=== PATIENT | female | born 2000 | race Caucasian/White ===

== ENCOUNTER 2019-07-04 07:09 | Inpatient (IN) | payer OTHER, SELFPAY ==
[2019-07-04 07:32] VITALS: BMI 29.6
--- NOTE | 2019-07-04 07:46 | PCM.HP.OB ---
- Problem List (1) 40 weeks gestation of Status: Acute (2) Primiparous Status: Acute History Date of Admission: 07/04/19 Final ROLDAN: 06/29/19 Gestational age: 40 Weeks and 5 Days History of this : This is a 18 year-old, G 1, P 0, at 40 weeks gestational age who presents for scheduled IOL. Medical History: Medical History (Last Updated 07/04/19 @ 07:47 by Nisreen Cardozo DO) History of depression Z86.59 History of herpes genitalis Z86.19 Allergies Penicillins [PCN] Allergy (Verified 07/04/19 07:33) Unknown Home Medications: Home Medications Cetirizine HCl 1 tab PO DAILY 07/04/19 Fluconazole 1 tab 07/04/19 Montelukast [Singulair] 10 mg PO DAILY 07/04/19 Vits [Prenatabs FA ] 1 tab PO DAILY 07/04/19 Valacyclovir HCl [Valacyclovir] 1 tab PO DAILY 07/04/19 History Past Pregnancies: Past Pregnancies Delivery Date Name GA/ Weeks Outcome Route Wt Infant Sex Labor Length Anesthesia Delivery Location Provider FOB Labs: GBS neg Hgb 11.5 Hgb a1c 4.7 UDS neg Rh positive Antibody screen neg Hep B neg RPR NR RI HIV NR GC/CT neg Expected Delivery Method: Spontaneous Vaginal Review of Systems Gynecological: Reports: - - No regular ctx, vb, lof. +FM Physical Exam General: Alert, No apparent distress HEENT: Atraumatic Lungs: Normal air movement Abdomen: Soft, Non Tender, Gravid Extremities:: No edema Neurological: Neuro grossly intact [place] [facility] END: Normal external genitalia Estimated gestational size: Appropriate for gestational size Presentation: Cephalic Assessment/Plan All Active Problems 40 weeks gestation of (Acute) Primiparous (Acute) This is a 18 year-old, G 1, P 0, at 40 weeks gestational age. - Admit for scheduled IOL. Routine intrapartum care - Pitocin per protocol - Epidural prn - GBS neg - Pelvis adequate and anticipate vaginal delivery - No symptoms of a herpes outbreak and no lesions
[2019-07-04] MEDS: Lactated Ringers 1,000 ML 50 ML IV (08:00)
[2019-07-04 08:17] LABS: Absolute Lymphocyte Count 2.82 X10^3/uL (0.83-4.51); Absolute Neutrophil Count 7.3 X10^3/uL (2.0-7.7); Basophil# 0.05 X10^3/uL; Basophil% 0.4 % (0-1); Eosinophil# 0.07 X10^3/uL; Eosinophils% 0.6 % (0-5); Hematocrit 35.6 % (37-47); Hemoglobin 11.9 g/dL (12.0-15.0); Lymphocyte # 2.82 X10^3/ul (4.0); Mean Corp Hgb Conc 33.4 g/dL (32-36); Mean Corpuscular Hgb 31.1 pg (27.0-32.0); Mean Platelet Vol. 10.4 fl (6.2-12.0); Monocyte# 0.96 X10^3/uL; Monocyte% 8.5 % (0-10); NRBC Flagged by Analyzer 0 % (0-5); Neutrophil # 7.32 X10^3/uL (2.7-7.7); Neutrophil % 65.1 % (47-70); Platelet Count 263 K/mm3 (150-450); RBC Distribution Width CV 13.9 % (11.6-14.6); RBC Distribution Width SD 47.3 fl (35.1-43.9); Red Blood Count 3.83 M/mm3 (4.2-5.4); White Blood Count 11.3 K/mm3 (4.4-11.0)
[2019-07-04] MEDS: Oxytocin 30 units/NS 500 ml 30 UNITS/500 ML IV.SOLN IV (08:42)
[2019-07-04] MEDS: Lactated Ringers 500 ML 999 ML IV ×2 (11:45→13:30)
[2019-07-04] MEDS: fentaNYL-bupivacaine (epidural) 100 ML BAG EPIDURAL ×2 (12:30→17:15)
--- NOTE | 2019-07-04 13:31 | EKG12_ITS ---
Test Reason : CP Blood Pressure : / mmHG Vent. Rate : 086 BPM Atrial Rate : 086 BPM P-R Int : 116 ms QRS Dur : 102 ms QT Int : 384 ms P-R-T Axes : 027 040 009 degrees QTc Int : 459 ms Normal sinus rhythm Normal ECG No previous ECGs available Confirmed by NORI PETERSON, WILLIAM ([id number]), editorial specialist LASHAUN EVANS ([id number] on 07/11/2019 10:36:33 AM Referred By: Chayito Blanchard Confirmed By:IGNACIO JULIO MD
--- NOTE | 2019-07-04 13:32 | PCM.PN.BLA ---
Progress Note Cvx 4/70/-1, head well applied. AROM for meconium stained fluid. Pt with epigastric pain, SOB, nausea, vomiting, and generally not feeling well. She appears pale. S/p epidural 1 hour ago approximately. Will get CBC w/ diff, CMP, EKG. Anesthesia ordered a fluid bolus and is coming to evaluate pt.
[2019-07-04 14:00] LABS: Absolute Lymphocyte Count 1.96 X10^3/uL (0.83-4.51); Absolute Neutrophil Count 7.8 X10^3/uL (2.0-7.7); Basophil# 0.03 X10^3/uL; Basophil% 0.3 % (0-1); Eosinophil# 0.01 X10^3/uL; Eosinophils% 0.1 % (0-5); Hematocrit 39.1 % (37-47); Hemoglobin 13.1 g/dL (12.0-15.0); Lymphocyte # 1.96 X10^3/ul (4.0); Lymphocyte % 18.9 % (19-41); Mean Corp Hgb Conc 33.5 g/dL (32-36); Mean Corpuscular Hgb 31.4 pg (27.0-32.0); Mean Corpuscular Volume 93.8 fL (81-99); Mean Platelet Vol. 10.5 fl (6.2-12.0); Monocyte# 0.54 X10^3/uL; Monocyte% 5.2 % (0-10); NRBC Flagged by Analyzer 0 % (0-5); Neutrophil # 7.76 X10^3/uL (2.7-7.7); Platelet Count 250 K/mm3 (150-450); RBC Distribution Width SD 48.5 fl (35.1-43.9); Red Blood Count 4.17 M/mm3 (4.2-5.4); White Blood Count 10.4 K/mm3 (4.4-11.0)
[2019-07-04 14:41] LABS: ALB/GLOB Ratio 0.8 RATIO (0.9-2.4); AST(SGOT) 20 U/L (15-37); Alanine Aminotransfer ALT/SGPT 18 U/L (13-56); Albumin, Serum 3.2 g/dL (3.2-5.0); Alkaline Phosphatase 186 U/L (45-117); Anion Gap 8 (5-15); BUN 6 mg/dL (7-18); BUN/Creat Ratio 10.9 RATIO (10-20); Calcium,Total 9.1 mg/dL (8.5-10.1); Chloride 110 mmol/L (98-107); Creatinine, Serum 0.55 mg/dL (0.55-1.02); EST Glomerular Filtration Rate 148 mL/min (>60); Est Glom Filt Rate - Afr Amer 179 mL/min (>60); Estimated Creatinine Clearance 134.97 ml/min; Globulin 4.2 g/dL (2.2-4.2); Glucose 85 mg/dL (74-106); Potassium 3.7 mmol/L (3.5-5.1); Protein, Total 7.4 g/dL (6.4-8.2); Sodium Level 139 mmol/L (136-145)
[2019-07-04] MEDS: Amnioinfusion- 0.9% NS 1,000 ML IV.SOLN. 300 ML INTRA-UTER (15:23)
[2019-07-04] MEDS: Oxytocin 30 units/NS 500 ml 30 UNITS/500 ML IV.SOLN 334 UNITS IV (17:43)
--- NOTE | 2019-07-04 18:05 | PCM.OPRPT ---
Problem List (1) 40 weeks gestation of Status: Acute (2) Primiparous Status: Acute Report of Operation Date of Procedure: 07/04/19 Pre-Operative Diagnosis: 40 week gestation, primiparous patient, favorable cervix Post-Operative Diagnosis: As above Surgery/Procedure Performed:: Description of Surgical Findings:: Viable female infant in vertex presentation. Meconium stained fluid. True know x 1 in cord and nuchal x 2 around neck. Intact normal appearing placenta. Type of Anesthesia:: Epidural Special Medications: None Specimen's removed: Placenta Drains: Duran Estimated Blood Loss (mL): 300 Description of Procedure: Patient was complete and pushing with variable decelerations with pushing. A small midline episiotomy was created. Head was delivered noting a nuchal cord x 2 that was loose and easily reduced. The anterior shoulder, posterior shoulder, followed by body were delivered without force or delay. Viable female was delivered atraumatically and was placed on maternal abdomen. Cord was clamped and cut after 60 sec delay by father of the baby. Apgars were 8 and 9. Placenta was delivered with fundal massage. Placenta was noted to be normal-appearing and intact with a three-vessel cord. Uterus was explored x 1. A second-degree perineal laceration was repaired in usual sterile fashion. Fundus was firm and bleeding was hemostatic. - Complications None Vaginal Delivery Maternal Presentation: Elective Induction Method of Induction: Pitocin Amniotic Membrane Rupture Type: Artificial Amniotic Fluid Description: Lightly stained meconium Final ROLDAN: 06/29/19 Gestational age: 40 Weeks and 5 Days Date of Procedure: 07/04/19 Surgery/ Procedure Performed: Spontaneous Vaginal Delivery Type of Anesthesia: Epidural Presentation: Vertex Placental Delivery Description: Expressed Cord Vessel Description: 3 Vessels Nuchal Cord Compression: Without compression Cord Entanglement: Around neck x 2, loose, True Knot(s) - 1 Infant A gender: Female (1 minute): 8 (5 minute): 9 Episiotomy Description: Midline Laceration: 2nd degree Medications given after delivery: IV Pitocin Complications: None
[2019-07-04] MEDS: Ibuprofen 600 MG Tablet PO (22:59)
[2019-07-04 23:07] VITALS: BP 107/73; PULSE 108; RESP 16; TEMP 36.6; O2SAT 98
[2019-07-05] MEDS: Acetaminophen 500 MG Tablet 1000 MG PO ×2 (01:33→09:34)
[2019-07-05 03:55] VITALS: BP 111/72; PULSE 94; RESP 14; TEMP 36.5
[2019-07-05] MEDS: Ibuprofen 600 MG Tablet PO (06:24)
[2019-07-05 08:15] VITALS: BP 111/61; PULSE 100; RESP 12; TEMP 36.6
[2019-07-05] MEDS: Senna/Docusate Sodium 1 Tablet PO (09:34)
--- NOTE | 2019-07-05 10:21 | PCM.PN.OB ---
Patient Problems: Active and Suspected Problems (Last Updated 07/04/19 @ 07:47 by Nisreen Cardozo DO) 40 weeks gestation of (Acute) Primiparous (Acute) Subjective: Patient doing well. Ambulating and voiding without difficulty. Pain is well controlled. Tolerating regular diet without nausea or vomiting. She denies lightheadedness, dizziness, chest pain, shortness of breath, leg pain. She is bottlefeeding. - Physical Exam Vitals/I&O's: Vital Signs Temp Pulse Resp BP Pulse Ox 97.7 F L 94 14 111/72 98 07/05/19 03:55 07/05/19 03:55 07/05/19 03:55 07/05/19 03:55 07/04/19 23:07 Oxygen Delivery Method Room Air Weight: 167 lb 4 oz Body Mass Index (BMI) 29.6 Intake and Output for Last 24 Hours 07/03/19 07/04/19 07/05/19 23:59 23:59 23:59 Intake Total 3306.43 / 3306.43 Output Total 1200 / 1200 800 / 800 Balance 2106.43 / 2106.43 -800 / -800 General: Alert, No apparent distress HEENT: Atraumatic Lungs: Normal air movement Abdomen: Soft, Non Tender, Non-Distended, - - FF@U-2 Extremities: No edema, No Calf Tenderness Skin: No rashes Neurological: Neuro grossly intact Psych/Mental Status: Normal Affect, Appropriate Laboratory Results 07/04/19 13:50: WBC 10.4, RBC 4.17 L, Hgb 13.1, Hct 39.1, MCV 93.8, MCH 31.4, MCHC 33.5, RDW Std Deviation 48.5 H, RDW Coeff of Ajay 14.0, Plt Count 250, MPV 10.5, Immature Gran % (Auto) 0.500, Neut % (Auto) 75.0 H, Lymph % (Auto) 18.9 L, [place] % (Auto) 5.2, Eos % (Auto) 0.1, Baso % (Auto) 0.3, Absolute Neuts (auto) 7.8 H, Absolute Lymphs (auto) 1.96, Nucleated RBC % 0 07/04/19 13:50: Sodium 139, Potassium 3.7, Chloride 110 H, Carbon Dioxide 21.0, Anion Gap 8, BUN 6 L, Creatinine 0.55, Estim Creat Clear Calc 134.97, Est GFR (MDRD) Af Amer 179, Est GFR (MDRD) Non-Af 148, BUN/Creatinine Ratio 10.9, Glucose 85, Calcium 9.1, Total Bilirubin 0.30, AST 20, ALT 18, Alkaline Phosphatase 186 H, Total Protein 7.4, Albumin 3.2, Globulin 4.2, Albumin/Globulin Ratio 0.8 L Current Medications Acetaminophen (Tylenol) 1,000 mg PO Q8H PRN PRN PRN Reason: Pain Score 1-3/10 Last Admin: 07/05/19 09:34 Dose: 1,000 mg Documented by: Bisacodyl (Dulcolax) 10 mg RECTAL UD PRN PRN Reason: If no BM Dibucaine (Dibucaine) 1 applic TOPICAL TID PRN PRN; Protocol PRN Reason: Discomfort Hydrocortisone (Hytone) 1 applic TOPICAL TID PRN PRN; Protocol PRN Reason: Discomfort Ibuprofen (Motrin) 600 mg PO Q6H PRN PRN PRN Reason: Pain Score 1-3/10 Last Admin: 07/05/19 06:24 Dose: 600 mg Documented by: Methylergonovine Maleate (Methergine) 0.2 mg IM X1 PRN PRN Reason: Excess bleeding/uterine atony Ondansetron HCl (Zofran) 4 mg IV Q4H PRN PRN PRN Reason: Nausea Senna/Docusate Sodium (Senokot-S, Genna-Colace) 1 - 2 tablet PO DAILY PRN PRN PRN Reason: Constipation Last Admin: 07/05/19 09:34 Dose: 2 tablet Documented by: Simethicone (Mylicon) 80 mg PO PCHS PRN PRN Reason: Indigestion/Stomach pain Sodium Chloride () 5 - 15 ml IV UD PRN PRN Reason: SALINE FLUSH Medical Necessity - Tobacco Use Smoking Status: Former smoker Assessment/Plan All Active Problems (Last Updated 07/04/19 @ 07:47 by Nisreen Cardozo DO) 40 weeks gestation of (Acute) Primiparous (Acute) PPD#1 s/p - Doing well - Bottle feeding - Dispo: Pt requests to go home today. Understands that she has to stay 24 hrs after delivery at least for monitoring. Discharge instructions and follow up reviewed
--- NOTE | 2019-07-05 10:24 | DCINST_ITS ---
Discharge Diet: No Restrictions Discharge Activity: Return to Normal Activity May resume sexual activity in: 6 weeks Ice area for (Minutes): 15 Weight Bearing Status: Full weight bearing Lifting Restrictions: None Call your doctor if your incision/area has: Sudden Increased Bleeding, Increased Pain/ Swelling, Increased Redness, Foul Smelling Discharge, Swelling at the incision site Call your doctor if you observe: Fever of 101 or Higher, Inability to urinate, Inability to have a bowel movement, Using more than one pad per hour, Shortness of breath, Dizziness, Chest pain, Increased palpitations (irregular heartbeat), Calf discomfort, Uncontrolled pain Cleanse incision/area with: Soap & Water Additional Instructions: If you experience any of the following, contact your healthcare provider. * Bleeding that soaks a pad every hour for 2 hours * Fever 100.4 or higher * Unrelieved incision or abdominal pain * Swelling, redness, discharge or bleeding from your incision or episiotomy site * Your incision begins to separate * Problems urinating (including inability to urinate or burning while urinating). * Visual changes * Severe headache * Flu-like symptoms * Pain or redness in one of both of your breasts * Pain, warmth, tenderness or swelling in your legs, especially the calf area * Frequent nausea and vomiting * Symptoms of depression or anxiety If you experience any of the following, call 911 or go to the nearest Emergency Room. * Chest pain * Problems breathing * Seizure activity * Partial or complete paralysis of a body part, slurred speech, weakness or drooping of the face, or a sudden inability to walk or hold your balance Allergies/Adverse Reactions: Allergies Penicillins [PCN] Allergy (Verified 07/04/19 07:33) Unknown Medications to take at Discharge Cetirizine HCl 1 tab PO DAILY 07/04/19 Fluconazole 1 tab 07/04/19 Montelukast [Singulair] 10 mg PO DAILY 07/04/19 Vits [Prenatabs FA ] 1 tab PO DAILY 07/04/19 Valacyclovir HCl [Valacyclovir] 1 tab PO DAILY 07/04/19 Please Follow Up With: Nisreen Cardozo DO When: 2 weeks and 6 weeks Primary Care Physician: Luann Dunn MD [Primary Care Provider] - Test Results: Test results from this visit will be discussed in further detail at your follow- up appointment, if applicable.
[2019-07-05 14:00] VITALS: BP 102/60; PULSE 90; RESP 12; TEMP 36.6
[2019-07-05 18:00] VITALS: PULSE 82; RESP 16; TEMP 36.8
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
[2019-07-05 19:33] VITALS: BP 137/61; PULSE 102; RESP 18; TEMP 36.5
== END 2019-07-05 19:45 | disposition home or self-care (01) | DRG 807 ==
PROVIDERS: Obstetrics & Gynecology; Admitting Provider Obstetrics & Gynecology; Family Provider Family Medicine; PCP Family Medicine; Referring Provider Obstetrics & Gynecology; Visit Provider Obstetrics & Gynecology
DX: O48.0 Post-term pregnancy (principal); Z37.0 Single live birth; Z3A.40 40 weeks gestation of pregnancy; O77.0 Labor and delivery complicated by meconium in amniotic fluid; O69.81X0 Labor and delivery complicated by cord around neck, without compression, not applicable or unspecified; O69.2XX0 Labor and delivery complicated by other cord entanglement, with compression, not applicable or unspecified; O76 Abnormality in fetal heart rate and rhythm complicating labor and delivery; O70.1 Second degree perineal laceration during delivery
CPT/HCPCS: 59025; 59050; 80053; 85025; 86850; 86900; 86901; 93005; 99218; J7030; J7120; G0378

== ENCOUNTER 2022-09-18 07:05 | Inpatient (IN) | payer SELFPAY ==
[2022-09-18] VITALS (60 sets, daily range): BP systolic 98–135; BP diastolic 52–84; PULSE 75–139; TEMP 35.9–36.6; O2SAT 95–100; BMI 35.5
[2022-09-18] MEDS: Lactated Ringers 1,000 ML 50 ML IV (07:47)
[2022-09-18 08:04] LABS: Absolute Lymphocyte Count 3.01 X10^3/uL (0.83-4.51); Absolute Neutrophil Count 7.1 X10^3/uL (2.0-7.7); Basophil# 0.04 X10^3/uL; Basophil% 0.4 % (0-1); Eosinophil# 0.07 X10^3/uL; Eosinophils% 0.6 % (0-5); Hematocrit 36.9 % (37-47); Hemoglobin 12.2 g/dL (12.0-15.0); Lymphocyte # 3.01 X10^3/ul (0.83-4.51); Lymphocyte % 27.5 % (19-41); Mean Corp Hgb Conc 33.1 g/dL (32-36); Mean Corpuscular Hgb 30.4 pg (27.0-32.0); Mean Platelet Vol. 10.2 fl (6.2-12.0); Monocyte# 0.64 X10^3/uL; Monocyte% 5.8 % (0-10); NRBC Flagged by Analyzer 0 % (0-5); Neutrophil # 7.11 X10^3/uL (2.7-7.7); Neutrophil % 64.9 % (47-70); Platelet Count 270 K/mm3 (150-450); RBC Distribution Width CV 14.5 % (11.6-14.6); RBC Distribution Width SD 48.5 fl (35.1-43.9); Red Blood Count 4.01 M/mm3 (4.2-5.4)
--- NOTE | 2022-09-18 08:36 | EKG12_ITS ---
Test Reason : tachycardia Blood Pressure : / mmHG Vent. Rate : 128 BPM Atrial Rate : 128 BPM P-R Int : 114 ms QRS Dur : 096 ms QT Int : 308 ms P-R-T Axes : 048 041 005 degrees QTc Int : 449 ms Sinus tachycardia When compared with ECG of 04-JUL-2019 14:11, Vent. rate has increased BY 42 BPM Confirmed by SHARON PETERSON, DERRELL ([id number]), editorial writer DAYSI INFANTE ([id number]) on 09/19/2022 8:08:24 AM Referred By: Pao Ahn Confirmed By:DERRELL HERRERA MD
[2022-09-18] MEDS: Oxytocin 15 Units/NS 250ml 15 UNITS/250 ML IV.SOLN 2 UNITS IV (08:47)
[2022-09-18 08:56] LABS: Syphilis Antibodies Non-reactive
[2022-09-18] MEDS: LACTATED RINGERS 500 ML 999 ML IV ×2 (08:56→11:28)
--- NOTE | 2022-09-18 08:56 | HP.PCM.OB_ITS ---
HPI - General General Date of Admission: 09/18/22 HPI Narrative BETY DOMINGUEZ, is a 22 F who presents at 39w2d with induction of labor. 2 vessel umbilical cord. [facility] Medical History (Updated 09/18/22 @ 18:02 by Pao Ahn CNM) Anxiety Former smoker History of depression History of herpes genitalis depression Home Medications cetirizine 10 mg tablet 1 tab PO PRN PRN allergies 07/04/19 [History Last Taken Unknown] montelukast 10 mg tablet 10 mg PO PRN PRN allergies 07/04/19 [History Last Taken Unknown] vits,calcium no.78-iron fumarate-folic acid 29 mg-1 mg tablet 1 tab PO DAILY 07/04/19 [History Last Taken 09/17/22] valacyclovir 1 gram tablet 1 tab PO DAILY hx genital herpes 07/04/19 [History Last Taken 09/18/22] magnesium citrate 100 mg capsule 400 mg PO PRN PRN Constipation 09/18/22 [History Last Taken 09/17/22] Allergy/AdvReac Type Severity Reaction Status Date / Time Penicillins [PCN] Allergy Unknown Verified 07/04/19 07:33 Social History Smoking Status: Former smoker History Elective abortions Hx Para 1 Spontaneous abortions Hx # Term Pregnancies Ectopic pregnancies Hx # Pregnancies Multiple births # of living children NST FHR Rate Baby A Baseline: 155 Variability:: Moderate Accelerations:: 15 x 15 Decelerations:: Variable FHR Category:: Category II Uterine Activity:: None ROS Constitutional Constitutional: Reports systems reviewed and no addt'l complaints, except as documented; Denies headache(s) Eyes Eyes: Denies acute decrease in peripheral vision, blurry vision or change in vision ENT HEENT: Reports systems reviewed and no addt'l complaints, except as documented Cardiovascular Cardiovascular: Denies chest pain or dizziness Respiratory/Chest Respiratory/Chest: Denies cough, dyspnea, dyspnea on exertion, shortness of breath at rest or shortness of breath with exertion Gastrointestinal Gastrointestinal: Denies abdominal pain, diarrhea, nausea or vomiting Genitourinary Genitourinary: Denies abdominal discomfort Musculoskeletal Musculoskeletal: Denies limited range of motion Integumentary Integumentary: Reports systems reviewed and no addt'l complaints, except as documented Neurologic Neurologic: Reports systems reviewed and no addt'l complaints, except as documented Psychiatric Psychiatric: Reports systems reviewed and no addt'l complaints, except as documented Endocrine Endocrinology: Reports systems reviewed and no addt'l complaints, except as documented Hematologic/Lymphatic Hematologic/Lymphatic: Reports systems reviewed and no addt'l complaints, except as documented Allergic/Immunologic Allergic/Immunologic: Reports systems reviewed and no addt'l complaints, except as documented Vital Signs Vital Signs Vital Signs: 09/18/22 07:56 09/18/22 07:56 09/18/22 07:57 Temperature 97.9 F Pulse Rate 135 H Blood Pressure 119/69 BP Systolic 119 BP Diastolic 69 Pulse Ox 09/18/22 07:57 09/18/22 08:06 09/18/22 08:06 Temperature Pulse Rate 133 H Blood Pressure BP Systolic BP Diastolic Pulse Ox 98 96 09/18/22 08:11 09/18/22 08:11 09/18/22 08:16 Temperature Pulse Rate 133 H 129 H Blood Pressure BP Systolic BP Diastolic Pulse Ox 96 09/18/22 08:16 09/18/22 08:21 09/18/22 08:21 Temperature Pulse Rate 127 H Blood Pressure BP Systolic BP Diastolic Pulse Ox 97 96 09/18/22 08:26 09/18/22 08:26 09/18/22 08:31 Temperature Pulse Rate 129 H 128 H Blood Pressure BP Systolic BP Diastolic Pulse Ox 97 09/18/22 08:31 09/18/22 08:30 09/18/22 08:36 Temperature 97.9 F Pulse Rate 135 H Blood Pressure BP Systolic BP Diastolic Pulse Ox 98 09/18/22 08:36 09/18/22 08:41 09/18/22 08:41 Temperature Pulse Rate 139 H Blood Pressure BP Systolic BP Diastolic Pulse Ox 97 99 09/18/22 08:46 09/18/22 08:46 09/18/22 08:51 Temperature Pulse Rate 136 H Blood Pressure BP Systolic BP Diastolic Pulse Ox 98 98 09/18/22 08:51 Temperature Pulse Rate 126 H Blood Pressure BP Systolic BP Diastolic Pulse Ox Weight Weight: 194 lb 3.2 oz Body Mass Index (BMI) 35.5 Physical Exam Const alert and oriented x3 General Appearance: cooperative Orientation / Consciousness: awake, oriented to person, oriented to place and oriented to time Exam Limitations: no limitations HEENT normocephalic Head and Scalp: normal to inspection, normocephalic and atraumatic Face and Sinus: normal facial exam Eyes General Eye: normal appearance of both eyes Neck full ROM Chest Chest: symmetrical chest wall rise Resp normal respiratory effort and normal air movement Auscultation: clear to auscultation bilaterally Cardio regular rate, regular rhythm, S1 normal heart sound, S2 normal heart sound, no murmurs, no rub, no gallops and no clicks GI normal to inspection, nondistended, normoactive bowel sounds and non-tender appearance of the vagina normal Bladder / Kidney Exam: no CVA tenderness Manual OB Exam: estimated gestational size appropriate, presentation cephalic, dilated 3, effaced 50 and station -2 Back/Spine normal ROM Extremity normal to inspection and full ROM Skin no rashes or lesions noted Neuro oriented x3, CN's II-XII intact bilaterally and moves all extremities Sensorium / Orientation: awake, alert and oriented to person Motor Exam: clonus absent Deep Tendon Reflexes: Rt Patellar (L4): 2+ and Lt Patellar (L4): 2+ Labs Labs Labs: Blood Type A POSITIVE Antibody Screen NEGATIVE Hct 36.9 % (37-47) L Hgb 12.2 g/dL (12.0-15.0) Syphilis Total Ab Non-reactive Rhogam given: No HBsAG negative Hep C negative GBS negative Did not complete 1hr GCT, 2 weeks of Blood sugar log normal Assessment & Plan (1) Elective induction of labor planned: (2) Two vessel umbilical cord: (3) 39 weeks gestation of : PLAN: Plan 1) Admit to labor and delivery 2) Pitocin for active management 3) Continuous monitoring 4) Epidural for pain management 5) GBS negative 6) collaborative physician and notified of patient status 7) HSV prophylaxis
[2022-09-18 09:24] LABS: ALB/GLOB Ratio 0.7 RATIO (0.9-2.4); AST(SGOT) 28 U/L (15-37); Alanine Aminotransfer ALT/SGPT 14 U/L (13-56); Albumin, Serum 2.7 g/dL (3.2-5.0); Alkaline Phosphatase 168 U/L (45-117); Anion Gap 13 (5-15); BUN 5 mg/dL (7-18); BUN/Creat Ratio 8.6 RATIO (10-20); Calcium,Total 8.9 mg/dL (8.5-10.1); Chloride 110 mmol/L (98-107); Creatinine, Serum 0.58 mg/dL (0.55-1.02); EST Glomerular Filtration Rate 135 mL/min (>60); Est Glom Filt Rate - Afr Amer 163 mL/min (>60); Estimated Creatinine Clearance 118.29 ml/min; Globulin 3.7 g/dL (2.2-4.2); Glucose 154 mg/dL (74-106); Potassium 3.8 mmol/L (3.5-5.1); Protein, Total 6.4 g/dL (6.4-8.2); Sodium Level 141 mmol/L (136-145)
--- NOTE | 2022-09-18 10:02 | ECHOD_ITS ---
Reason For Study: ANB EKG Procedure This was a 2D Doppler, Color Flow transthoracic echocardiogram. Technically difficult study due to patient in active labor. Exam performed portable in patient room. Left Ventricle Normal LV size. Left ventricular systolic function is normal. The estimated ejection fraction is 60 %. No regional wall motion abnormalities noted. Right Ventricle Normal RV size. Normal systolic function. Atria Normal left atrium. Normal right atrium. Mitral Valve Normal mitral valve. Tricuspid Valve Normal tricuspid valve. Mild (1+) tricuspid valve insufficiency. Pulmonary artery systolic pressure is 30 mmHg. Aortic Valve Normal aortic valve. Trisinus/trileaflet aortic valve. Pulmonic Valve Normal pulmonic valve. Great Vessels Normal aortic root. The pulmonary artery is normal size. Normal inferior vena cava. Pericardium/Pleural No pericardial effusion. MMode/2D Measurements & Calculations LVIDd: 5.2 cm IVSd: 0.95 cm LAV(MOD-sp4): 27.7 ml LVIDs: 3.9 cm LVPWd: 0.76 cm FS: 25.1 % LVAd ap4: 22.9 cm2 SV(MOD-sp4): 39.4 ml SV(sp4-el): 41.4 ml LVLd ap4: 7.0 cm EDV(MOD-sp4): 61.7 ml EDV(sp4-el): 63.5 ml LVAs ap4: 12.8 cm2 LVLs ap4: 6.3 cm ESV(MOD-sp4): 22.3 ml ESV(sp4-el): 22.1 ml EF(MOD-sp4): 63.9 % EF(sp4-el): 65.2 % LA A4 area: 12.5 cm2 RA A4 area: 13.1 cm2 Time Measurements MV dec time: 0.04 sec Doppler Measurements & Calculations MV E max camilo: 67.1 cm/sec Lat Peak E' Camilo: 12.4 cm/sec Med Peak E' Camilo: 8.9 cm/sec MV A max camilo: 75.6 cm/sec E/E' lat: 5.4 E/E' med: 7.6 MV E/A: 0.89 Ao V2 max: 135.4 cm/sec LV V1 max: 125.7 cm/sec MV dec slope: 1567 cm/sec2 Ao max P.5 mmHg LV V1 max P.3 mmHg Ao V2 mean: 92.5 cm/sec LV V1 mean P.8 mmHg Ao mean P.9 mmHg LV V1 mean: 76.8 cm/sec Ao V2 VTI: 17.7 cm LV V1 VTI: 19.1 cm AV (velocity ratio): 1.1 PA V2 max: 148.0 cm/sec TR max camilo: 254.3 cm/sec PA V2 mean: 104.4 cm/sec TR max P.9 mmHg ECHO/Echo Complete Interpretation Summary Normal LV size. Left ventricular systolic function is normal. The estimated ejection fraction is 60 %. Structurally normal valves. Ordering Physician: Pao Ahn Referring Physician: Pao Ahn Performed By: Ching Haq RCS
[2022-09-18] MEDS: fentaNYL-bupivacaine (epidural) 100 ML BAG EPIDURAL (12:39)
[2022-09-18] MEDS: Oxytocin 15 Units/NS 250ml 15 UNITS/250 ML IV.SOLN 83 UNITS IV (18:00)
--- NOTE | 2022-09-18 18:05 | EX.PCM.OBRPT ---
Assessment & Plan (1) Vaginal delivery: (2) First degree laceration of perineum during delivery, : (3) depression: (4) History of depression: (5) History of herpes genitalis: Maternal Data Information Gestational age: 39w2d Vaginal Delivery Maternal Presentation Maternal Presentation: Induction of labor, obesity and 2 vessel umbilical cord Type of Induction: Pitocin Operative Information Date of Procedure: 09/18/22 Pre-Operative Diagnosis: Induction of labor Post-Operative Diagnosis: , episiotomy first degree Surgery / Procedure Performed: Spontaneous Vaginal Delivery Type of Anesthesia: Epidural Estimated Blood Loss: 200 ml Time of Delivery: 17:25 Findings Description of Procedure: Progressed to complete with urge to push. Epidural for pain management. of viable female infant over first degree episiotomy. APGARS 8,9 respectively. Episiotomy completed after patient consent for heart rate decelerations and long perineum holding infant from delivery. Infant head delivered with body immediately forthcoming. Placed on maternal abdomen, strong cry. Mouth and nares suctioned for secretions. Pitocin started for active 3rd stage management. Cord doubly clamped and cut by FOB after pulsations ceased, delayed cord clamping. Placenta delivered intact via wendy 2 vessel cord intact. Perineum inspected and revealed 1st degree perineal laceration. Repaired with 3.0 vicryl rapide and epidural. Fundus firm and hemostasis achieved. EBL 200ml. Mom and baby stable, planning to breastfeed. Family bonding well. notified of delivery. Presentation: Vertex Amniotic Membrane Rupture Type: Artificial Amniotic Fluid Description: Clear Placental Delivery Description: Spontaneous Placenta Disposition: [facility] Cord Vessel Description: 2 Vessels Cord Entanglement: None Infant A Gender: Female (1 minute): 8 (5 minute): 9 Delayed Cord Clamping: Yes Post Vaginal Delivery Medications Given After Delivery: IV Pitocin Episiotomy Description: Midline and 1st degree Laceration: None Complication Complications: None
[2022-09-18] MEDS: Ondansetron 4 MG/2 ML Vial IV (18:14)
[2022-09-18] MEDS: 0.9% Saline Lock 10 ML Syringe IV (18:14)
[2022-09-18] MEDS: Ibuprofen 600 MG Tablet PO (19:13)
[2022-09-18] MEDS: Acyclovir 200 MG Capsule 400 MG PO (22:16)
[2022-09-19 02:18] VITALS: BP 106/51; PULSE 95; RESP 16; TEMP 36.5
[2022-09-19] MEDS: Ibuprofen 600 MG Tablet PO (06:32)
[2022-09-19 06:41] LABS: Hematocrit 33.9 % (37-47); Mean Corp Hgb Conc 32.4 g/dL (32-36); Mean Corpuscular Hgb 30.2 pg (27.0-32.0); Mean Corpuscular Volume 93.1 fL (81-99); Mean Platelet Vol. 10.4 fl (6.2-12.0); Platelet Count 232 K/mm3 (150-450); RBC Distribution Width CV 14.5 % (11.6-14.6); RBC Distribution Width SD 49.7 fl (35.1-43.9); Red Blood Count 3.64 M/mm3 (4.2-5.4); White Blood Count 15.3 K/mm3 (4.4-11.0)
[2022-09-19 08:27] VITALS: BP 120/66; PULSE 108; RESP 16; TEMP 36.6; O2SAT 97
--- NOTE | 2022-09-19 08:55 | PN.OBGYN_ITS ---
Subjective Subjective Denies complaints Objective Data Objective Data Vital Signs: Vital Signs Temp Pulse Resp BP Pulse Ox O2 Del Method 97.8 F 108 H 16 120/66 97 Room Air 09/19/22 08:27 09/19/22 08:27 09/19/22 08:27 09/19/22 08:27 09/19/22 08:27 09/19/22 08:27 Oxygen Delivery Method Room Air Weight: 194 lb 3.2 oz Body Mass Index (BMI) 35.5 Intake & Output: Intake and Output for Last 24 Hours 09/17/22 09/18/22 09/19/22 23:59 23:59 23:59 Intake Total 1982.33 / 1982.33 Output Total 1375 / 1375 Balance 608.33 / 608.33 Lab / Micro Data Result Diagrams: 09/19/22 06:25 09/18/22 07:47 Labs: Laboratory Results - last 24 hr 09/18/22 07:47: Blood Type A POSITIVE, Antibody Screen NEGATIVE 09/18/22 07:47: Syphilis Total Ab Non-reactive 09/18/22 07:47: Sodium 141, Potassium 3.8, Chloride 110 H, Carbon Dioxide 18.0 L , Anion Gap 13, BUN 5 L, Creatinine 0.58, Estim Creat Clear Calc 118.29, Est GFR (MDRD) Af Amer 163, Est GFR (MDRD) Non-Af 135, BUN/Creatinine Ratio 8.6 L, Glucose 154 H, Calcium 8.9, Total Bilirubin 0.30, AST 28, ALT 14, Alkaline Phosphatase 168 H, Total Protein 6.4, Albumin 2.7 L, Globulin 3.7, Al bumin/Globulin Ratio 0.7 L 09/19/22 06:25: WBC 15.3 H, RBC 3.64 L, Hgb 11.0 L, Hct 33.9 L, MCV 93.1, MCH 30.2, MCHC 32.4, RDW Std Deviation 49.7 H, RDW Coeff of Ajay 14.5, Plt Count 232, MPV 10.4 Radiography Diagnostic Testing: Radiology Impression Echocardiogram 09/18/22 10:02 Interpretation Summary Normal LV size. Left ventricular systolic function is normal. The estimated ejection fraction is 60 %. Structurally normal valves. Ordering Physician: Pao Ahn Referring Physician: Pao Ahn Performed By: Ching Haq RCS Physical Exam Const alert, oriented x3 and no apparent distress HEENT normocephalic GI soft to palpation, non-tender and non-distended GI Narrative: fundus firm, mid & below umbilicus Extremity normal to inspection and no calf tenderness Assessment & Plan (1) Vaginal delivery: COMMENT: PPD#1 PLAN: Routine care D/c to home per patient request
--- NOTE | 2022-09-19 08:56 | DCINST_ITS ---
Discharge Instructions Diet Discharge Diet: No restrictions Activity Discharge Activity: May Shower May resume sexual activity in: 6 weeks Weight Bearing Status: Weight bearing as tolerated Dressing / Incision Call your doctor if you observe: Fever of 101 or Higher, Coldness, Increased Pain, Change in Color, Inability to urinate, Inability to have a bowel movement, Using more than 1 pad per hour, Shortness of breath, Dizziness, Fainting spells, Chest pain, Increased palpitations (irregular heartbeat), Calf discomfort and Uncontrolled pain Suture Line Care: Avoid Pulling/Pushing and Avoid Pinching/Bending Follow Up Care Please Follow Up With: Pepe Lincoln MD When: Follow up in 2 and 6 weeks for visits. Test Results: Test results from this visit will be discussed in further detail at your follow- up appointment, if applicable. Discharge Plan Admission Admit Date/Time: 09/18/22 07:05 Primary Reason for Your Visit: Vaginal delivery Attending Provider: Pao Ahn Primary Care Provider: Luann Dunn Discharge Orders/Prescriptions Prescriptions: New acetaminophen 500 mg Tablet 1,000 mg PO Q6H PRN PRN (Reason: Pain 1-10 Or Fever) Qty: 0 0RF ibuprofen 600 mg Tablet 600 mg PO Q6H PRN PRN (Reason: Pain Score 1-3) Qty: 0 0RF Continued cetirizine 10 MG tablet 1 tab PO PRN PRN (Reason: allergies) Label Comments: TAKE 1 TABLET BY MOUTH EVERY DAY valacyclovir 1,000 MG tablet 1 tab PO DAILY montelukast 10 MG tablet 10 mg PO PRN PRN (Reason: allergies) [id number] 1 TABLET tablet 1 tab PO DAILY magnesium citrate 100 mg Capsule 400 mg PO PRN PRN (Reason: Constipation) Referrals / Follow Up: Luann Dunn MD [Primary Care Provider] - Disposition Disposition (needs filled in before D/C Order can be placed): Home, Self Care
[2022-09-19] MEDS: Prenatal Vits Tablet 1 TABLET PO (11:01)
[2022-09-19] MEDS: Acyclovir 200 MG Capsule 400 MG PO (11:01)
[2022-09-19] MEDS: Acetaminophen 500 MG Tablet 1000 MG PO (11:02)
[2022-09-19 12:40] VITALS: BP 104/59; PULSE 91; RESP 14; TEMP 37.1; O2SAT 97
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
[2022-09-19 15:51] VITALS: BP 123/71; PULSE 84; RESP 14; TEMP 36.6; O2SAT 99
== END 2022-09-19 18:00 | disposition home or self-care (01) | DRG 807 ==
PROVIDERS: Admitting Provider Advanced Practice Midwife; PCP Family Medicine; Referring Provider Advanced Practice Midwife; Visit Provider Advanced Practice Midwife
DX: O70.0 First degree perineal laceration during delivery (principal); Z37.0 Single live birth; E66.8 Other obesity; Q27.0 Congenital absence and hypoplasia of umbilical artery; O99.214 Obesity complicating childbirth; Z87.891 Personal history of nicotine dependence; Z86.59 Personal history of other mental and behavioral disorders; Z86.19 Personal history of other infectious and parasitic diseases; Z3A.39 39 weeks gestation of pregnancy; O99.893 Other specified diseases and conditions complicating puerperium
CPT/HCPCS: 59025; 59050; 80053; 85025; 85027; 86780; 86850; 86900; 86901; 93005; 93306; 99221; J7120; A4216; G0378; J2405

== ENCOUNTER 2025-06-25 07:15 | Inpatient (IN) | payer BC, SELFPAY ==
[2025-06-25] VITALS (73 sets, daily range): BP systolic 97–150; BP diastolic 51–74; PULSE 69–148; RESP 14–18; TEMP 36.2–37.1; O2SAT 89–100; BMI 35.1
--- OUTSIDE RECORDS SUMMARY | 2025-06-25 07:27 | XMS RPT_ITS | CCD ---
Author Organization [facility] Care Team Providers Care Director [employer] Name Role Phone Unavailable Primary Care Provider Dr. Luann Ceja Primary Care Provider [phone] Todd Montague Attending Provider Todd Montague Attending Unavailable Shaun, Dr. Kong Primary Care Unavailable Powell Pao Admitting Unavailable Fani Powellica Attending Unavailable Shaun, Dr. Kong Primary Care Unavailable Powell, Pao Referring Unavailable Unavailable Primary Care Provider Unavailabl e Unavailable Primary Care Provider Unavailabl e PLOTTS, LATASHA Attending Unavailable POWELL, PAO Referring Unavailable POWELL, PAO Referring Unavailable POWELL, PAO Attending Unavailable POWELL, PAO Referring Unavailable PLOTTS, LATASHA Referring Unavailable PLOTTS, LATASHA Attending Unavailable POWELL, PAO Referring Unavailable PLOTTS, LATASHA Attending Unavailable YVONNE BARONE Attending Unavailable PLOTTS, LATASHA Attending Unavailable PLOTTS, LATASHA Referring Unavailable PLOTTS, LATASHA Attending Unavailable POWELL, PAO Attending Unavailable POWELL, PAO Referring Unavailable PLOTTS, LATASHA Attending Unavailable POWELL, PAO Referring Unavailable Allergies Allergy Classification Reported Allergen(s) Allergy Type Date of Onset Reaction(s) Facility (15 sources) Penicillins; Translations: [PENICILLINS] Propensity to adverse reactions to drug 9 Other: See Comments [facility] Work Phone: (1 source) Penicillins Allergy to substance 9 Unknown [facility] (1 source) Penicillins Drug allergy (disorder) 9 [facility] Repository (8 sources) Penicillins Propensity to adverse reactions to drug 9 Other: See Comments [facility] Medications Current Medications Medication Drug Class(es) Dates Sig (Normalized) Sig (Original) acetaminophen 500 mg oral tablet (1 source) Start: 09-19-2022 take 1000 mg by mouth every six hours as needed Acetaminophen Active 1000 MG PO EVERY 6 HOURS NEEDED 0 September 19, 2022 12:00am cetirizine hydrochloride 10 mg oral tablet (20 sources) Histamine-1 Receptor Antagonist Start: 07-04-2019 Cetirizine Active 1 TABLET PO NEEDED July 04, 2019 12:00am cetirizine HCl ( CETIRIZINE ORAL) Take by mouth. Active cetirizine HCl ( CETIRIZINE ORAL) Take by mouth. 0 Active Comment on above: Take by mouth. Doxylamine (5 sources) doxylamine succi eduardo (UNISOM, DOXYLAMINE, ORAL) Take by mouth. Active ibuprofen 600 mg oral tablet (1 source) Nonsteroidal Anti-inflammatory Drug Start: 3 take 600 mg by mouth every six hours as needed Ibuprofen Active 600 MG PO EVERY 6 HOURS NEEDED 0 September 19, 2022 12:00am Magnesium (4 sources) magnesium citrate (1 source) Start: 3 Magnesium Citrate Active 400 MG PO NEEDED September 18, 2022 12:00am montelukast 10 mg oral tablet (16 sources) Leukotriene Receptor Antagonist Start: 9 Montelukast Active 10 MG PO NEEDED July 04, 2019 12:00am End: 11-17-2024 montelukast sodium (SINGULAI R ORAL) Take by mouth. 11/17/2024 Discontinued (Course of therapy completed) montelukast sodi um (SINGULAIR ORAL) Take by mouth. 0 Active Comment on above: Take by mouth. ondansetron 4 mg oral tablet (5 sources) Serotonin-3 Receptor Antagonist Start: 5 take 1 tablet by mouth every eight hours as needed ondansetron (ZOFRAN) 4 mg tablet Take 1 tablet by mouth every 8 hours as needed for nausea/vomiting. 30 tablet 1 12/18/2024 Active Zszfvunc-Vi-Frx-Fe-FA tab (20 sources) take 1 tablet by mouth once Wwujpfpn-Yg-Gyx-Fe-F A tab Take 1 tablet by mouth. Active take 1 tablet by mouth once Pren atal Iwqfcrby-Es-Jqs-Fe-FA tab Take 1 tablet by mouth. 0 Active Comment on above: Take 1 tablet by ha th. Vit,Rrbi49-Zeeq-Yrnwx (1 source) Start: 9 take 1 tablet by mouth once daily Vit,Mnmb35-Nfje-Qgni c Active 1 TABLET PO DAILY July 04, 2019 12:00am pyridoxine HCl, vitamin B6, (VITAMIN B-6 ORAL) (6 sources) pyridoxine HCl, vitamin B6, (VITAMIN B-6 ORAL) Take by mouth. Active valACYclovir 1000 mg oral tablet (1 source) Herpesvirus Nucleoside Analog DNA Polymerase Inhibitor, Herpes Simplex Virus Nucleoside Analog DNA Polymerase Inhibitor, Herpes Zoster Virus Nucleoside Analog DNA Polymerase Inhibitor Start: 9 take 1 tablet by mouth once daily Valacyclovir Active 1 TABLET PO DAILY July 04, 2019 12:00am Completed/Discontinued Medications Medication Drug Class(es) Dates Sig (Normalized) Sig (Original) acyclovir 400 mg oral tablet (5 sources) Herpesvirus Nucleoside Analog DNA Polymerase Inhibitor, Herpes Simplex Virus Nucleoside Analog DNA Polymerase Inhibitor, Herpes Zoster Virus Nucleoside Analog DNA Polymerase Inhibitor Start: 08-31-2022 End: 11-17-2024 take 1 tablet by mouth three times daily acyclovir (ZOVIRAX) 400 mg tablet Indications: 36 weeks gestation of (HCC) , History of herpes genitalis Take 1 tablet by mouth three times daily. Starting around 36 weeks gestation and until time of delivery. 60 tablet 08/31/2022 11/17/2024 Discontinued (Course of therapy completed) Comment on above: Take 1 tablet by ha th three times daily. Starting around 36 weeks gestation and until time of delivery. aspirin 81 mg delayed release oral tablet (2 sources) Platelet Aggregation Inhibitor, Nonsteroidal Anti-inflammatory Drug Start: 11-17-2024 End: 12-18-2024 take 1 tablet by mouth once daily aspirin, enteric coated (ECOTRIN LOW STRENGTH) 81 mg EC tablet Indications: with uncertain dates, antepartum (HCC) Take 1 tablet by mouth once daily. 90 tablet 3 11/17/2024 12/18/2024 Discontinued Ethinyl Estradiol / norgestimate (6 sources) Progestin, Estrogen Start: 08-31-2020 take 1 tablet by mouth once daily ALEXANDRA 0.25-35 mg-mcg per tablet TAKE 1 TABLET BY MOUTH EVERY DAY 84 tablet 0 08/31/2020 Active Comment on above: TAKE 1 TABLET BY HA TH EVERY DAY L.acid/L.casei/B.bi f/B.akil/FOS (PROBIOTIC BLEND ORAL) (15 sources) End: 11-17-2024 L.acid/L.casei/B.b if/B.akil/FOS (PROBIOTIC BLEND ORAL) Take by mouth. 11/17/2024 Discontinued (Course of therapy completed) L.acid/L.casei/B .bif/B.akil/FOS (PROBIOTIC BLEND ORAL) Take by mouth. 0 Active Comment on above: Take by mouth. Problems Active Problems Problem Classification Problem Date Documented Da te Episodic/Chronic Allergic reactions (1 source) Allergy status to penicillin; Translations: [Penicillin allergy] Onset: 05-21-2025 Episodic Diabetes mellitus without complication (1 source) Other abnormal glucose; Translations: [Elevated glucose] Onset: 04-09-2025 Episodic Diabetes or abnormal glucose tolerance complicating ; childbirth; or the puerperium (1 source) Gestational diabetes mellitus in , diet controlled; Translations: [Gestational diabetes mellitus, class A1 ([facility])] Onset: 05-21-2025 Episodic Miscellaneous mental health disorders (5 sources) depression; Translations: [ depression] Onset: 03-12-2025 09-18-2022 Episodic OB-related trauma to perineum and vulva (2 sources) First degree perineal tear during delivery - delivered; Translations: [First degree perineal laceration during delivery] 09-18-2022 Episodic Other complications of (2 sources) Maternal obesity complicating , childbirth and the puerperium, antepartum; Translations: [Obesity complicating , second trimester] Chronic Other complications of (14 sources) Obesity; Translations: [Obesity complicating , unspecified trimester] Onset: 11-17-2024 Chronic Other complications of (1 source) Obesity complicating , second trimester; Translations: [Obesity affecting in second trimester, unspecified obesity type (HCC)] Onset: 02-12-2025 Chronic Other complications of (1 source) Obesity complicating , unspecified trimester; Translations: [Obesity in (HCC)] Onset: 11-17-2024 Chronic Other complications of (1 source) Late entry into care; Translations: [Supervision of with insufficient care, unspecified trimester] Episodic Other complications of (14 sources) High risk ; Translations: [Supervision of other high risk pregnancies, first trimester] Onset: 11-17-2024 11-25-2024 Episodic Other complications of (1 source) Uterine size-date discrepancy, second trimester; Translations: [Uterine size-date discrepancy, second trimester (HCC)] Onset: 05-21-2025 Episodic Other complications of (1 source) Uterine size-date discrepancy, third trimester; Translations: [Uterine size date discrepancy, third trimester (HCC)] Onset: 05-21-2025 Episodic Other complications of (1 source) Supervision of high risk , unspecified, third trimester; Translations: [Supervision of high risk in third trimester (HCC)] Onset: 04-21-2025 Episodic Other screening for suspected conditions (not mental disorders or infectious disease) (10 sources) Patient encounter status; Translations: [Encounter for screening for malignant neoplasm of cervix] Onset: 12-18-2024 Episodic Prolapse of female genital organs (20 sources) Midline cystocele; Translations: [Cystocele, midline] Onset: 03-02-2022 Chronic Residual codes; unclassified (1 source) Gestation period, 10 weeks; Translations: [10 weeks gestation of ] Episodic Residual codes; unclassified (1 source) Gestation period, 14 weeks; Translations: [14 weeks gestation of ] Episodic Residual codes; unclassified (2 sources) Gestation period, 18 weeks; Translations: [18 weeks gestation of ] Episodic Residual codes; unclassified (1 source) Gestation period, 30 weeks; Translations: [30 weeks gestation of ] Episodic Residual codes; unclassified (3 sources) Gestation period, 32 weeks; Translations: [32 weeks gestation of ] Episodic Residual codes; unclassified (1 source) Gestation period, 36 weeks; Translations: [36 weeks gestation of ] Episodic Residual codes; unclassified (1 source) Gestation period, 37 weeks; Translations: [37 weeks gestation of ] Episodic Residual codes; unclassified (1 source) Gestation period, 39 weeks; Translations: [39 weeks gestation of ] 09-18-2022 Episodic Residual codes; unclassified (1 source) Gestation period, 40 weeks; Translations: [40 weeks gestation of ] 07-04-2019 Episodic Residual codes; unclassified (1 source) 39 weeks gestation of ; Translations: [ state, incidental] 09-19-2022 Episodic Residual codes; unclassified (2 sources) Gestation period, 12 weeks; Translations: [12 weeks gestation of ] 12-18-2024 Episodic Residual codes; unclassified (1 source) Gestation period, 16 weeks; Translations: [16 weeks gestation of ] 01-15-2025 Episodic Residual codes; unclassified (2 sources) Gestation period, 20 weeks; Translations: [20 weeks gestation of ] 02-12-2025 Episodic Residual codes; unclassified (1 source) Gestation period, 24 weeks; Translations: [24 weeks gestation of ] 03-12-2025 Episodic Residual codes; unclassified (1 source) 34 weeks gestation of ; Translations: [34 weeks gestation of (HCC)] Onset: 05-21-2025 Episodic Residual codes; unclassified (1 source) 32 weeks gestation of ; Translations: [32 weeks gestation of (HCC)] Onset: 05-07-2025 Episodic Residual codes; unclassified (1 source) 29 weeks gestation of ; Translations: [29 weeks gestation of (HCC)] Onset: 04-21-2025 Episodic Residual codes; unclassified (1 source) 28 weeks gestation of ; Translations: [28 weeks gestation of (HCC)] Onset: 04-09-2025 Episodic Residual codes; unclassified (1 source) 24 weeks gestation of ; Translations: [24 weeks gestation of (HCC)] Onset: 03-12-2025 Episodic Unclassified (2 sources) Planned procedure; Translations: [Elective induction of labor planned] 09-18-2022 Unclassified (8 sources) [facility] Education - COMMON Onset: 11-17-2024 11-17-2024 Unclassified (8 sources) Education - [place] Onset: 11-17-2024 11-17-2024 Past or Other Problems Problem Classification Problem Date Documented Date Episodic/Chronic Cardiac and circulatory congenital anomalies (20 sources) Single umbilical artery; Translations: [Congenital absence and hypoplasia of umbilical artery] Onset: 04-28-2022 Resolved: 11-17-2024 Chronic Other complications of (11 sources) Vomiting of , unspecified; Translations: [Unspecified vomiting of , unspecified as to episode of care or not applicable] Onset: 11-17-2024 11-17-2024 Episodic Other complications of (1 source) Supervision of other high risk pregnancies, first trimester; Translations: [Supervision of other high risk pregnancies, first trimester (HCC)] Onset: 02-12-2025 Episodic Other complications of (1 source) Supervision of high risk , unspecified, second trimester; Translations: [Supervision of high risk in second trimester (HCC)] Onset: 02-12-2025 Episodic Other infections; including parasitic (20 sources) History of sexually transmitted disease; Translations: [Personal history of other infectious and parasitic diseases] Onset: 04-17-2019 04-17-2019 Episodic Other infections; including parasitic (2 sources) Personal history of other infectious and parasitic diseases; Translations: [Personal history of other infectious and parasitic diseases] Onset: 11-17-2024 09-19-2022 Episodic Other and delivery including normal (20 sources) Normal ; Translations: [Encounter for supervision of normal first , unspecified trimester] Onset: 04-17-2019 Resolved: 08-08-2019 Episodic Residual codes; unclassified (1 source) 20 weeks gestation of ; Translations: [20 weeks gestation of (HCC)] Onset: 02-12-2025 Episodic Residual codes; unclassified (1 source) 16 weeks gestation of ; Translations: [16 weeks gestation of (HCC)] Onset: 01-15-2025 Episodic Residual codes; unclassified (1 source) 12 weeks gestation of ; Translations: [12 weeks gestation of ([facility])] Onset: 12-18-2024 Episodic Residual codes; unclassified (1 source) Personal history of other complications of , childbirth and the puerperium; Translations: [History of depression] Onset: 11-17-2024 Episodic Screening and history of mental health and substance abuse codes (20 sources) H/O: depression; Translations: [Personal history of other mental and behavioral disorders] Onset: 04-17-2019 04-17-2019 Episodic Results Test Name Value Interpretation Reference Range Aram Quintero 04-10-2025 SÁNCHEZ Telephone (OBGYWM) MABEL DOMINGUEZ ([id number]) 2000 F Date Time Provider Department 04/10/25 LATASHA KENDRICK KAYLA During your visit today, we recorded the following information about you: Bela Molina RN 04/10/2025 9:24 AM Signed 28w1d Patient failed her 1 hour glucose. States she told CP at her visit yesterday that she has been checking her blood sugars since 04/02 - fasting and 1 hour PP. She wants to know if she can continue checking her BS for a total of 2 weeks instead of doing the 3 hour. Aware CP returns to the office on 04/15. ISMAEL Arellano Rebecca L, MD 04/15/2025 8:59 AM Signed That is not our recommendation because if you have gestational diabetes the blood sugars can be normal and controlled earlier in and then later in the third trimester increase and we would not know. If she is concerned about the 3 hr and nausea we can give her something for that. I know it is inconvenient and time consuming but it is our recommendation as having undiagnosed gestational diabetes can pose risks to mother and baby. She can decline the 3hr if she chooses and if so we would recommend checking blood sugars for the rest of the at least a few days a week. MD Consuelo Love Lindsey, RN 04/15/2025 9:14 AM Signed Left message to call office. ISMAEL Davis Trisha, RN 04/15/2025 9:24 AM Signed Patient notified. She does want to check blood sugars remainder of rather than do 3 hour GTT still. Advised to keep log and bring to each appt with her and will discuss further at her appt next week. Suzette Carbajal RN Allergies As of Date: 04/10/2025 Noted Allergy Reaction PENICILLINS 04/17/2019 14 - Other: See Comments Comments: never had reaction. parents both allergic-avoids Date Reviewed: 04/09/2025 Reviewed by: Luciano Arellano LPN - Fully Assessed Reason for Visit: OB - Glucose [Other] Prescriptions as of 04/15/2025 - Magnesium 200 mg tab Take by mouth once daily. Dosage unknown - doxylamine succinate (UNISOM, DOXYLAMINE, ORAL) Take by mouth. - pyridoxine HCl, vitamin B6, (VITAMIN B-6 ORAL) Take by mouth. - ondansetron (ZOFRAN) 4 mg tablet Take 1 tablet by mouth every 8 hours as needed for nausea/vomiting. - Bzxyvxum-Vi-Btj-Fe-F A tab Take 1 tablet by mouth. - cetirizine HCl (CETIRIZINE ORAL) Take by mouth. 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] 04/28/2022 11/17/2024 History of depression [Z87.59, Z86.5*11/17/2024 Encounter for supervision of normal i*11/17/2024 Obesity in (HCC) [O99.210] 11/17/2024 Nausea and vomiting in (HCC) [O21.9] 11/17/2024 Anxiety about health [R45.89] 03/12/2025 Uterine size-date discrepancy, second trimester*04/09/2025 Elevated glucose [R73.09] 04/09/2025 Encounter Status:Closed by SUZETTE CARBAJAL on 04/15/25 Normal [facility] CBC panel Auto (Bld)on 04-09 Erythrocyte distribution width (RBC) [Ratio] 13.2 % Normal 11.5-15.0 [facility] Comment on above: Order Comment: Speci men Type: BLOOD SPECIMEN Ordering Facility: [facility] Address: [address] [place] [address] Performed By: #### 5 8410-2 #### [facility] CLIA [id number] [address] [place], [place] [id number] [place] Hematocrit (Bld) [Volume fraction] 33.6 % Low 36.0-46.0 [facility] Comment on above: Order Comment: Speci men Type: BLOOD SPECIMEN Ordering Facility: [facility] Address: [address] [place] [address] Performed By: #### 5 8410-2 #### [facility] CLIA [id number] [address] [place] [address] [place] Hemoglobin (Bld) [Mass/Vol] 11.8 g/dL Normal 11.5-15.5 [facility] Comment on above: Order Comment: Speci men Type: BLOOD SPECIMEN Ordering Facility: [facility] Address: [address] [place] [address] Performed By: #### 5 8410-2 #### [id number] [address] [place] [address] [place] MCH (RBC) [Entitic mass] 31.4 pg Normal 26.0-34.0 [facility] Comment on above: Order Comment: Speci men Type: BLOOD SPECIMEN Ordering Facility: [facility] Address: [address] [place] [address] Performed By: #### 5 8410-2 #### [facility] [id number] [address] [place] [address] [place] MCHC (RBC) [Mass/Vol] 35.1 g/dL Normal 30.5-36.0 [facility] Comment on above: Order Comment: Speci men Type: BLOOD SPECIMEN Ordering Facility: [facility] Address: [address] [place] [address] Performed By: #### 5 8410-2 #### [id number] [address] [place] [address] [place] MCV (RBC) [Entitic vol] 89.4 fL Normal 80.0-100.0 [facility] Comment on above: Order Comment: Speci men Type: BLOOD SPECIMEN Ordering Facility: [facility] Address: [address] [place] [address] Performed By: #### 5 8410-2 #### [facility] CLIA [id number] [address] [place] [address] [place] Nucleated RBC (Bld) [#/Vol] 10*3/uL Normal <0.01 [facility] Comment on above: Order Comment: Speci men Type: BLOOD SPECIMEN Ordering Facility: [facility] Address: [address] [place] [address] Performed By: #### 5 8410-2 #### [facility] CLIA [id number] [address] [place] [address] [place] Platelet mean volume (Bld) [Entitic vol] 9.7 fL Normal 9.0-12.7 [facility] Comment on above: Order Comment: Speci men Type: BLOOD SPECIMEN Ordering Facility: [facility] Address: [address] [place] [address] Performed By: #### 5 8410-2 #### [facility] CLIA [id number] [address] [place] [address] [place] Platelets (Bld) [#/Vol] 294 10*3/uL Normal 150-400 [facility] Comment on above: Order Comment: Speci men Type: BLOOD SPECIMEN Ordering Facility: [facility] Address: [address] [place] [address] Performed By: #### 5 8410-2 #### [facility] CLIA [id number] [address] [place] [address] [place] RBC (Bld) [#/Vol] 3.76 10*6/uL Low 3.90-5.20 [facility] Comment on above: Order Comment: Speci men Type: BLOOD SPECIMEN Ordering Facility: [facility] Address: [address] [place] [address] Performed By: #### 5 8410-2 #### [facility] CLIA [id number] [address] [place] [address] [place] WBC (Bld) [#/Vol] 9.95 10*3/uL Normal 3.70-11.00 [facility] Comment on above: Order Comment: Speci men Type: BLOOD SPECIMEN Ordering Facility: [facility] Address: [address] [place] [address] Performed By: #### 5 8410-2 #### [facility] CLIA [id number] [address] [place] [address] [place] GESTATIONAL GLUCOSE SCREEN, 1-HOUR, 50 GRAM, NON-FASTINGon 04-09-2025 Glucose [Mass/Vol] 144 mg/dL High 74-134 [facility] Comment on above: Order Comment: Felicei deonte Type: BLOOD SPECIMEN Ordering Facility: [facility] Address: [address] [place] [address] Result Comment: [facility] Congress of Obstetricians and Gynecologists (Quezada/Anabelle) guidelines state a gestational diabetes mellitus positive screen is made, in women not previously diagnosed with overt diabetes, when the 1 hr plasma glucose level is equal to or above 140 mg/dL. The [facility] [employer] [facility] [place] recommends a 135 mg/dL cutoff. Performed By: #### G LTGST #### [facility] CLIA [id number] [address] [place] [address] [place] Reagin and Treponema pallidu m IgG and IgM [Interp]on 04-09-2025 T. pallidum IgG+IgM IA Ql (S) Non-Reactive Normal Nonreactive [facility] Comment on above: Order Comment: Speci men Type: BLOOD SPECIMEN Ordering Facility: [facility] Address: [address] [place] [address] Performed By: #### 7 3752-8 #### [facility] CLIA [id number] [address] [place], [place] [address] [place] [address] [place] Reagin+T pallidum IgG+IgM Se rPl-Impon 04-09-2025 Reagin and Treponema pallidum IgG and IgM [Interp] Cannot exclude recent Treponemal infection if specimen collected within 7-10 days after appearance of suspect lesions or 2-3 weeks after an exposure. Clinical correlation is required. Normal [facility] Comment on above: Order Comment: Speci men Type: BLOOD SPECIMEN Ordering Facility: [facility] Address: [address] [place] [address] Performed By: #### 7 3752-8 #### [facility] CLIA [id number] [address] [place] [address] STATES OF [facility] Examination level ultrasound on 02-12-2025 Indication Detailed anatomic survey Maternal obesity, BMI >30 Impression The patient is referred for a detailed anatomic survey. - Single, live, intrauterine . - biometry is consistent with the established gestational age. - No malformations were visualized on a complete detailed anatomic survey. - The amniotic fluid volume is normal amount. - The placenta is posterior, fundal. - The Transabdominal cervical length measures 44.4 mm with no evidence of funneling or other dynamic changes. - Not all structural malformations can be detected by ultrasound examination. Recommendations Additional follow-up as clinically indicated. Maternal Assessment Height 157 cm Height (ft) 5 ft Height (in) 2 in Physical Exam Initial weight (lb) 176 lb Initial BMI 32.19 kg/m Maternal assessment other: 3 Para 2 REMOTE READ Method Transabdominal ultrasound examination. View: Adequate visualization Ordonez . Number of fetuses: 1 Dating LMP on: 09/25/2024 GA by LMP 20 w + 0 d ROLDAN by LMP: 07/02/2025 GA by prior assessment 20 w + 0 d ROLDAN by prior assessment: 07/02/2025 Ultrasound examination on: 02/12/2025 GA by U/S based upon: AC, BPD, Femur, HC GA by U/S 20 w + 5 d ROLDAN by U/S: 06/27/2025 Assigned: based on stated ROLDAN, selected on 02/12/2025 Assigned GA 20 w + 0 d Assigned ROLDAN: 07/02/2025 General Evaluation Cardiac activity present. FHR 151 bpm. movements: present. Presentation: cephalic Placenta: Placental site: posterior, fundal Umbilical cord: Cord vessels: 3 vessel cord Amniotic fluid: Amount of AF: normal amount. MVP 6.4 cm Growth Overview Exam date GA BPD (mm) HC (mm) AC (mm) FL (mm) HL (mm) EFW (g) 02/12/2025 20w 0d 49 81% 185 75% 161.1 82% 32 63% 31.4 72% 369 81% Biometry Standard BPD 49.0 mm 20w 6d 81% Hadlock OFD 66.0 mm 20w 6d 96% Nicolaides HC 185.0 mm 20w 6d 75% Taina Cerebellum tr 20.8 mm 19w 6d 70% Hill Nuchal fold 5.5 mm AC 161.1 mm 21w 1d 82% Hadlock Femur 32.0 mm 20w 1d 63% Taina Humerus 31.4 mm 20w 3d 72% Taina EFW 369 g 20w 4d 81% Hadlock EFW (lb) 0 lb EFW (oz) 13 oz EFW by: Hadlock (HC-AC-FL) Extended Account Specialist 5.6 mm CM 3.8 mm 15% Nicolaides Extremities / Bony Struc FL / HC 0.17 5% Hadlock Other Structures FHR 151 bpm Anatomy Cranium: normal Lateral ventricles: normal Choroid plexus: normal Midline falx: normal Cavum septi pellucidi: normal Cerebellum: normal Cisterna magna: normal Head / Neck Vermis: normal Neck: normal Nuchal fold: normal Lips: normal Profile: normal Nose: normal Face Maxilla: normal Mandible: normal Orbits: normal Lens: normal 4-chamber view: normal RVOT view: normal LVOT view: normal 3-vessel view: normal 1-dxiuwv-xanqomv view: normal Heart / Thorax Situs: situs solitus (normal) Aortic arch view: normal SVC: normal IVC: normal Cardiac axis: normal Rt lung: normal Lt lung: normal Diaphragm: normal Cord insertion: normal Stomach: normal Kidneys: normal Bladder: normal Genitals: normal Abdomen Abdom. wall: normal Cervical spine: normal Thoracic spine: normal Lumbar spine: normal Sacral spine: normal Arms: normal Legs: normal Rt upper arm: normal Rt forearm: normal Rt hand: normal Rt fingers: normal Lt upper arm: normal Lt forearm: normal Lt hand: normal Lt fingers: normal Rt upper leg: normal Rt lower leg: normal Rt foot: normal Lt upper leg: normal Lt lower leg: normal Lt foot: normal Gender: Unspecified Wants to know sex: no Maternal Structures Uterus / Cervix Uterus: Visualized Cervix: Visualized Approach: Transabdominal Cervical length 44.4 mm Other: Patient declined transvaginal ultrasound for cervical length. Ovaries / Tubes / Adnexa Rt ovary: Visualized Lt ovary: Visualized Performed By: Krysten Hussein RDMS, RVT Read By: Chiquita Wagner M.D. MATERNAL MEDICINE [facility] Radiology Study observation (narrative) [facility] CBC W Auto Differential pane l (Bld)on 12-18-2024 Basophils (Bld) [#/Vol] 0.05 10*3/uL Normal <0.11 [facility] Comment on above: Order Comment: Speci men Type: BLOOD SPECIMEN Ordering Facility: [facility] Address: [address] [place] [address] Performed By: #### 5 7021-8 #### [facility] CLIA [id number] [address] [place] [address] [place] [facility] CLIA [id number] [address] [place] [address] [place] Basophils/100 WBC (Bld) 0.7 % Normal [facility] Comment on above: Order Comment: Speci men Type: BLOOD SPECIMEN Ordering Facility: [facility] Address: [address] [place] [address] Performed By: #### 5 7021-8 #### [facility] CLIA [id number] [address] [place] [address] [place] [facility] CLIA [id number] [address] [place] [address] [place] Differential cell count method Nom (Bld) Auto Normal [facility] Comment on above: Order Comment: Speci men Type: BLOOD SPECIMEN Ordering Facility: [facility] Address: [address] [place] [address] Performed By: #### 5 7021-8 #### [facility] CLIA [id number] [address] OF [facility] CLIA [id number] [address] [place] [address] [place] Eosinophils (Bld) [#/Vol] 0.05 10*3/uL Normal <0.46 [facility] Comment on above: Order Comment: Speci men Type: BLOOD SPECIMEN Ordering Facility: [facility] Address: [address] [place] [address] Performed By: #### 5 7021-8 #### [facility] CLIA [id number] [address] [place] [address] STATES OF [facility] CLIA [id number] [facility] [place] [address] [place] Eosinophils/100 WBC (Bld) 0.7 % Normal [facility] Comment on above: Order Comment: Speci men Type: BLOOD SPECIMEN Ordering Facility: [facility] Address: [address] [place] [address] Performed By: #### 5 7021-8 #### [facility] CLIA [id number] [address] [place] [address] [place] [facility] CLIA [id number] [address] [place] [address] [place] Erythrocyte distribution width (RBC) [Ratio] 13.0 % Normal 11.5-15.0 [facility] Comment on above: Order Comment: Speci men Type: BLOOD SPECIMEN Ordering Facility: [facility] Address: [address] [place] [address] Performed By: #### 5 7021-8 #### [facility] CLIA [id number] [address] [place] [address] [place] [facility] CLIA [id number] [address] [place] [address] [place] Hematocrit (Bld) [Volume fraction] 38.5 % Normal 36.0-46.0 [facility] Comment on above: Order Comment: Speci men Type: BLOOD SPECIMEN Ordering Facility: [facility] Address: [address] [place] [address] Performed By: #### 5 7021-8 #### [facility] CLIA [id number] [address] [place] [address] [place] [facility] CLIA [id number] [address] [place] [address] [place] Hemoglobin (Bld) [Mass/Vol] 13.4 g/dL Normal 11.5-15.5 [facility] Comment on above: Order Comment: Speci men Type: BLOOD SPECIMEN Ordering Facility: [facility] Address: [address] [place] [address] Performed By: #### 5 7021-8 #### [facility] CLIA [id number] [address] [place] [address] [place] [facility] CLIA [id number] [address] [place] [address] [place] Immature granulocytes (Bld) [#/Vol] 10*3/uL Normal <0.10 [facility] Comment on above: Order Comment: Speci men Type: BLOOD SPECIMEN Ordering Facility: [facility] Address: [address] [place] [address] Performed By: #### 5 7021-8 #### [facility] CLIA [id number] [address] [place] [address] [place] [facility] CLIA [id number] [address] [place] [address] [place] Immature granulocytes/100 WBC (Bld) 0.1 % Normal [facility] Comment on above: Order Comment: Speci men Type: BLOOD SPECIMEN Ordering Facility: [facility] Address: [address] [place] [address] Performed By: #### 5 7021-8 #### [facility] CLIA [id number] [address] [place] [address] [place] [facility] CLIA [id number] [address] [place] [address] [place] Lymphocytes (Bld) [#/Vol] 3.03 10*3/uL Normal 1.00-4.00 [facility] Comment on above: Order Comment: Speci men Type: BLOOD SPECIMEN Ordering Facility: [facility] Address: [address] [place] [address] Performed By: #### 5 7021-8 #### [facility] CLIA [id number] [address] [place] [address] [place] [facility] CLIA [id number] [address] [place] [address] [place] Lymphocytes/100 WBC (Bld) 40.7 % Normal [facility] Comment on above: Order Comment: Speci men Type: BLOOD SPECIMEN Ordering Facility: [facility] Address: [address] [place] [address] Performed By: #### 5 7021-8 #### [facility] CLIA [id number] [address] [place] [address] [place] [facility] CLIA [id number] [address] [place] [address] [place] MCH (RBC) [Entitic mass] 30.7 pg Normal 26.0-34.0 [facility] Comment on above: Order Comment: Speci men Type: BLOOD SPECIMEN Ordering Facility: [facility] Address: [address] [place] [address] Performed By: #### 5 7021-8 #### [facility] CLIA [id number] [address] [place] [address] [place] [facility] CLIA [id number] [address] [place] [address] [place] MCHC (RBC) [Mass/Vol] 34.8 g/dL Normal 30.5-36.0 [facility] Comment on above: Order Comment: Speci men Type: BLOOD SPECIMEN Ordering Facility: [facility] Address: [address] [place] [address] Performed By: #### 5 7021-8 #### [facility] CLIA [id number] [address] [place] [address] [place] [facility] CLIA [id number] [address] [place] [address] [place] MCV (RBC) [Entitic vol] 88.3 fL Normal 80.0-100.0 [facility] Comment on above: Order Comment: Speci men Type: BLOOD SPECIMEN Ordering Facility: [facility] Address: [address] [place] [address] Performed By: #### 5 7021-8 #### [facility] CLIA [id number] [address] [place] [address] [place] [facility] CLIA [id number] [address] [place] [address] [place] Monocytes (Bld) [#/Vol] 0.46 10*3/uL Normal <0.87 [facility] Comment on above: Order Comment: Speci men Type: BLOOD SPECIMEN Ordering Facility: [facility] Address: [address] [place] [address] Performed By: #### 5 7021-8 #### [facility] CLIA [id number] [address] [place] [address] [place] [facility] CLIA [id number] [address] [place] [address] [place] Monocytes/100 WBC (Bld) 6.2 % Normal [facility] Comment on above: Order Comment: Speci men Type: BLOOD SPECIMEN Ordering Facility: [facility] Address: [address] [place] [address] Performed By: #### 5 7021-8 #### [facility] CLIA [id number] [address] [place] [address] [place] [facility] CLIA [id number] [address] [place] [address] [place] Neutrophils (Bld) [#/Vol] 3.85 10*3/uL Normal 1.45-7.50 [facility] Comment on above: Order Comment: Speci men Type: BLOOD SPECIMEN Ordering Facility: [facility] Address: [address] [place] [address] Performed By: #### 5 7021-8 #### [facility] CLIA [id number] [address] [place] [address] [place] [facility] CLIA [id number] [address] [place] [address] [place] Neutrophils/100 WBC (Bld) 51.6 % Normal [facility] Comment on above: Order Comment: Speci men Type: BLOOD SPECIMEN Ordering Facility: [facility] Address: [address] [place] [address] Performed By: #### 5 7021-8 #### [facility] CLIA [id number] [address] [place] [address] [place] [facility] CLIA [id number] [address] [place] [address] [place] Nucleated RBC (Bld) [#/Vol] 10*3/uL Normal <0.01 [facility] Comment on above: Order Comment: Speci men Type: BLOOD SPECIMEN Ordering Facility: [facility] Address: [address] [place] [address] Performed By: #### 5 7021-8 #### [facility] CLIA [id number] [address] [place] [address] [place] [facility] CLIA [id number] [address] [place] [address] [place] Nucleated RBC/100 WBC (Bld) [Ratio] 0.0 /100 WBC Normal [facility] Comment on above: Order Comment: Speci men Type: BLOOD SPECIMEN Ordering Facility: [facility] Address: [address] [place] [address] Performed By: #### 5 7021-8 #### [facility] CLIA [id number] [address] [place] [address] [place] [facility] CLIA [id number] [address] [place] [address] [place] Platelet mean volume (Bld) [Entitic vol] 9.3 fL Normal 9.0-12.7 [facility] Comment on above: Order Comment: Speci men Type: BLOOD SPECIMEN Ordering Facility: [facility] Address: [address] [place] [address] Performed By: #### 5 7021-8 #### [facility] CLIA [id number] [address] [place] [address] [place] [facility] CLIA [id number] [address] [place] [address] [place] Platelets (Bld) [#/Vol] 199 10*3/uL Normal 150-400 [facility] Comment on above: Order Comment: Speci men Type: BLOOD SPECIMEN Ordering Facility: [facility] Address: [address] [place] [address] Performed By: #### 5 7021-8 #### [facility] CLIA [id number] [address] [place] [address] [place] [facility] CLIA [id number] [address] [place], [place] [id number] [place] Platelets Estimate (Bld) [#/Vol] Adequate Normal [facility] Comment on above: Order Comment: Speci men Type: BLOOD SPECIMEN Ordering Facility: [facility] Address: [address] [place] [address] Performed By: #### 5 7021-8 #### [facility] CLIA [id number] [address] [place] [address] [place] [facility] CLIA [id number] [address] [place] [address] [place] Polychromasia LM Ql (Bld) Slight Normal [facility] Comment on above: Order Comment: Speci men Type: BLOOD SPECIMEN Ordering Facility: [facility] Address: [address] [place] [address] Performed By: #### 5 7021-8 #### [facility] CLIA [id number] [address] [place] [address] [place] [facility] CLIA [id number] [address] [place] [address] [place] RBC (Bld) [#/Vol] 4.36 10*6/uL Normal 3.90-5.20 [facility] Comment on above: Order Comment: Speci men Type: BLOOD SPECIMEN Ordering Facility: [facility] Address: [address] [place] [address] Performed By: #### 5 7021-8 #### [facility] CLIA [id number] [address] [place] [address] [place] [facility] CLIA [id number] [address] [place] [address] [place] RED CELL MORPH Reviewed: unremarkable Normal [facility] Comment on above: Order Comment: Speci men Type: BLOOD SPECIMEN Ordering Facility: [facility] Address: [address] [place] [address] Performed By: #### 5 7021-8 #### [facility] CLIA [id number] [address] [place] [address] STATES OF [facility] CLIA [id number] [address] [place] WBC (Bld) [#/Vol] 7.45 10*3/uL Normal 3.70-11.00 [facility] Comment on above: Order Comment: Speci men Type: BLOOD SPECIMEN Ordering Facility: [facility] Address: [address] [place], [place] [address] [address] Performed By: #### 5 7021-8 #### [facility] CLIA [id number] [address] [place] [address] LAB CLIA [id number] [address] [place] [address] [place] Examination level ultrasound on 12-18-2024 Indication First trimester anatomic survey Maternal obesity, BMI >30 Impression The patient is referred for a first trimester anatomy scan including nuchal translucency measurement as clinically indicated. - Single, live, intrauterine . - [place] rump length measurement is consistent with the established gestational age. - No malformations visualized on first trimester anatomic assessment. - The nuchal translucency measurement is 1.8 mm. - Not all structural malformations can be detected by ultrasound examination. Maternal Structures: Right Ovary: Size 39 mm x 32 mm x 27 mm Left Ovary: Size 24 mm x 25 mm x 18 mm Recommendations - A standard anatomic survey at 16 weeks can be offered and a detailed exam at 20 weeks is recommended for increased risk. Maternal Assessment Height 157 cm Height (ft) 5 ft Height (in) 2 in Physical Exam Initial weight (lb) 176 lb Initial BMI 32.19 kg/m Maternal assessment other: 3 Para 2 REMOTE READ Method Transabdominal ultrasound examination Ordonez . Number of fetuses: 1 Dating LMP on: 09/25/2024 GA by LMP 12 w + 0 d ROLDAN by LMP: 07/02/2025 GA by prior assessment 12 w + 0 d ROLDAN by prior assessment: 07/02/2025 Ultrasound examination on: 12/18/2024 GA by U/S based upon: CRL GA by U/S 12 w + 5 d ROLDAN by U/S: 06/27/2025 Assigned: based on stated ROLDAN, selected on 12/18/2024 Assigned GA 12 w + 0 d Assigned ROLDAN: 07/02/2025 General Evaluation Cardiac activity present Placenta: posterior Cord vessels: 3 vessel cord Amniotic fluid: normal amount Biometry Standard FHR 169 bpm CRL 63.0 mm 12w 5d 88% Hadlock NT 1.80 mm First Trimester Anatomy Calvarium: normal Falx cerebri: normal Choroid plexus: normal Profile: normal Nasal bone: normal Retronasal triangle: normal Maxilla: normal Mandible: normal Nuchal translucency: Unremarkable Situs: normal Cardiac position: normal Cardiac axis: normal 4-chamber view: normal 4-chamber view with color: normal 4-prfida-wbbyzue view: normal Abdominal cord insertion: normal Stomach: normal Kidneys: normal Bladder: normal Color doppler of perivesical umbilical arteries: normal Vertebral alignment: normal Arms: normal Hands: normal Legs: normal Feet: normal Maternal Structures Uterus / Cervix Uterus: Visualized Uterus length 122 mm Uterus width 103 mm Uterus height 74 mm Uterus Vol 486.0 cm Ovaries / Tubes / Adnexa Rt ovary: Visualized Rt ovary D1 39 mm Rt ovary D2 32 mm Rt ovary D3 27 mm Rt ovary Vol 17.9 cm Lt ovary: Visualized Lt ovary D1 24 mm Lt ovary D2 25 mm Lt ovary D3 18 mm Lt ovary Vol 5.7 cm Performed By: Krysten Hussein RDMS, RVT Read By: Chiquita Wagner M.D. MATERNAL MEDICINE [facility] Radiology Study observation (narrative) [facility] HBV surface Ag Ser Qlon 06-0 HBV surface Ag Ql (S) Negative Normal Negative [facility] Comment on above: Order Comment: Speci men Type: BLOOD SPECIMEN Ordering Facility[facility] Address: [address] [place] [address] Performed By: #### 3 1201-7, 34457-7, 5195-3 #### [facility] CLIA [id number] [address] [place] [address] OF [place] HCV Ab Ser Qlon 12-18-2024 HCV Ab Ql (S) Negative Normal Negative [facility] Comment on above: Order Comment: Speci men Type: BLOOD SPECIMEN Ordering Facility: [facility] Address: [address] [place] [address] Result Comment: The result suggests no evidence of infection with Hepatitis C virus. Should recent infection be suspected, repeat testing may be considered 4-6 weeks after this draw. Performed By: #### 5 5454-3 #### [facility] CLIA [id number] [address] [place] [address] [place] HIV 1+2 Ab IA Qlon HIV 1 and 2 Ab IA.rapid Nom (S/P/Bld) Normal [facility] Comment on above: Order Comment: Speci men Type: BLOOD SPECIMEN Ordering Facility: [facility] Address: [address] [place] [address] Result Comment: Test not indicated. Performed By: #### 3 1201-7, 46118-2, 5195-3 #### [facility] CLIA [id number] [address] [place] [address] [place] HIV 1+2 Ab+HIV1 p24 Ag IA Ql Non-Reactive Normal Nonreactive [facility] Comment on above: Order Comment: Speci men Type: BLOOD SPECIMEN Ordering Facility[facility] Address: [address] [place] [address] Performed By: #### 3 1201-7, 70587-2, 5195-3 #### [facility] CLIA [id number] [address] [place] [address] [place] HIV immunoassay testing algorithm interpretation (S/P/Bld) [Interp] Normal [facility] Comment on above: Order Comment: Speci men Type: BLOOD SPECIMEN Ordering Facility[facility] Address: [address] [place] [address] Result Comment: No e vidence of HIV-1 or HIV-2 infection. Should recent infection be suspected, repeat testing may be considered 2-3 weeks after this draw. [place] Rev. Code 3701.243(E): This information has been disclosed to you from confidential records protected from disclosure by state law. You shall make no further disclosure of this information without the specific, written, and informed release of the individual to whom it pertains or as otherwise permitted by state law. A general authorization for the release of medical or other information is not sufficient for the purpose of the release of HIV test results or diagnoses. Performed By: #### 3 1201-7, 00904-4, 5195-3 #### [facility] CLIA [id number] [address] [place] [address] [place] HbA1c (Bld)on 12-18-2024 Average glucose Estimated from glycated hemoglobin (Bld) [Mass/Vol] 100 mg/dL Normal [facility] Comment on above: Order Comment: Speci men Type: BLOOD SPECIMEN Ordering Facility: [facility] Address: [address] [place] [address] Result Comment: eAG: (Estimated average glucose) is a calculated value from HgbA1c and is appliance service representative of the average blood glucose level in the last 2-3 month period. Performed By: #### 5 5454-3 #### [facility] CLIA [id number] [address] [place] [address] [place] HbA1c (Bld) [Mass fraction] 5.1 % Normal 4.3-5.6 [facility] Comment on above: Order Comment: Speci men Type: BLOOD SPECIMEN Ordering Facility: [facility] Address: [address] [place] [address] Result Comment: [place] Diabetes Association guidelines indicate that patients with HgbA1c in the range 5.7-6.4% are at increased risk for development of diabetes, and intervention by lifestyle modification may be beneficial. HgbA1c greater or equal to 6.5% is considered diagnostic of diabetes. Performed By: #### 5 5454-3 #### [facility] CLIA [id number] [address] [place] [address] [place] RUBELLA IGG ANTIBODYon 12-18 RUBELLA IGG AB, QUAL Positive Normal Positive [facility] Comment on above: Order Comment: Speci men Type: BLOOD SPECIMEN Ordering Facility[facility] Address: [address] [place] [address] Result Comment: The result suggests recent or past exposure to Rubella virus or history of Rubella vaccination. Positive result may also be seen due to presence of passively-transferred antibodies. Please correlate with patient's history. Performed By: #### R UBIGG #### [facility] CLIA [id number] [address] [place] [address] [place] Reagin and Treponema pallidu m IgG and IgM [Interp]on 12-18-2024 T. pallidum IgG+IgM IA Ql (S) Non-Reactive Normal Nonreactive [facility] Comment on above: Order Comment: Speci men Type: BLOOD SPECIMEN Ordering Facility[facility] Address: [address] [place] [address] Performed By: #### 3 1201-7, 27267-7, 5195-3 #### [facility] CLIA [id number] [address] [place] [address] [place] Reagin+T pallidum IgG+IgM Se rPl-Impon 12-18-2024 Reagin and Treponema pallidum IgG and IgM [Interp] Cannot exclude recent Treponemal infection if specimen collected within 7-10 days after appearance of suspect lesions or 2-3 weeks after an exposure. Clinical correlation is required. Normal [facility] Comment on above: Order Comment: Speci men Type: BLOOD SPECIMEN Ordering Facility: [facility] Address: [address] [place] [address] Performed By: #### 3 1201-7, 41539-0, 5195-3 #### [facility] CLIA [id number] [address] [place] [address] [place] TYPE + SCREEN PRENATALon ABO A Normal [facility] Comment on above: Order Comment: Speci men Type: BLOOD SPECIMEN Ordering Facility: [facility] Address: [address] [place] [address] Performed By: #### 5 5454-3 #### [facility] CLIA [id number] [address] [place] [address] [place] Rh Nom (Bld) Positive Normal [facility] Comment on above: Order Comment: Speci men Type: BLOOD SPECIMEN Ordering Facility: [facility] Address: [address] [place] [address] Performed By: #### 5 5454-3 #### [facility] CLIA [id number] [address] [place] [address] [place] TYPE AND SCREEN EXPIRATION 12/21/2024 23:59 Normal [facility] Comment on above: Order Comment: Speci men Type: BLOOD SPECIMEN Ordering Facility: [facility] Address: [address] [place] [address] Performed By: #### 5 5454-3 #### [facility] CLIA [id number] [address] [place] [address] [place] PAP TESTOrdered By: Consuelo stallworth on 11-25-2024 Case Report Gynecologic Cytology Report Case: [id number] Authorizing Provider: Pao Powell APRN.CNM Collected: 11/17/2024 02:09 PM Ordering Location: OB/Gynecology Received: 11/17/2024 03:56 PM First Screen: Rubina Portillo, CT, ASCP Rescreen: Consuelo Palomo CT, ASCP Specimen: Pap Test, ThinPrep, Cervix [facility] Clinical History Routine Exam [facility] Interpretation Negative [facility] LMP 09/25/2024 [facility] Pap Disclaimer p7umoPRwVOAlc8dqNTRr bGFuZzEwMzNcZnRuYmpc zTXxPGaxrsGxELywb1Bj I3CiKeMnWZqieiZjMIFo YbqfsixbUHFlLHQ3ayDc SBCxTFgiRPFtPHksJd5a eRHurZqxRpGsSIVeq1lr bpVTzfwknDd7v8hqYLJk VxM1iHVcFWjiM0jjqgZb kTRxLVHvLJg1vV72SLBo wD2urSNfFUglefVvXxC5 YIuuWJZaMwO8VWEzlRUp XDNiS8tcXTWvYTctZGCo FOtzjKIrYSD2sQzoj5I5 bGVzaGVldHtcZjBcZnMy IhOTj3RoSYo7uObxZ4Ac YEOoZdC5pHWyUZAzEOqc XFIsKNTxnrZ4sK36DEsn jfV6dGLde9Uln85wo161 nR5ckPCoJSX8BEAjEKAr sTGvPUCdHDA5QDAfwHAh R9boCHIdOJ7pwhcpFOit YBovMSKkrYU4LUInvFEe S4QnAJEhPLovPKIfrbg6 AbCmNb9kpVAezLiqKAsv d9cdh8gxmZJsKco9YKKr EdCjSkaoTFvvf8Qil2ih CTYamx4sXMF6lXFswViv c6D4wBKxJFTdyMGjoqFl OCGbCxX5EEgkBN2gpm96 HHLqTMU7zp0pjLVslWnd lsLofNDiTRstF8AzPQHh f093WJHsE4AlDIAla2K5 twPjQsYbXFUqnXB4yoS6 POOuRJe7aIWayjZ0uvZn kYZcY3ovfQ8rPKMxOW9u ljxup0bqMRrnYTqjLDLi pZY8olJ5QISoeBCjD9Wn oA8lIGYeMNauOXQptjo9 QeAfFf3rqTAlbGipJKet YmtwYWdlXHBnbmNvbnRc cGduZGVjXHBsYWluXHBs YWluXGYwXGZzMjRccWxc nGtwbY7dDcRqEgUeXpns CX6hGRKrE8lkqVFhTWFa FLWjT7csMjFrpU3nuBej BDvlsyD1MQJoDEJEROYw W35jYLHdnOJjETOhG8Lp OE4wcjewpWSeuLOzz5Oi A1NmhepnYNleU6FzG6Rb XxGkEzMrz9YyjbTgOPGj ufCwqwVkmQf8xrTjM1B8 dfC9kZFfXQKbpGHqD1Wt BJ4yywwpkOZpoJVwTWRk pWnyw2q6lP0nNQEdWQWz ZWVkIGZvciByZXNjcmVl dejzRcKqjVSuTBQadV6r bmRlZCBpbnRlcnZhbHMs IGFuZCBjbGluaWNhbCBj l8XdZCubaJhubr0egMfm hD5uXtLqIxNfOtyvLM5k STEsX3eyzTSoYSVyARFe Q2bbXxAeaI4kwSqtZWjw qvLwQEUvdn09 [facility] PAP Supervisor Claims Comment t2etsNKzFXSqc8tiQAOv bGFuZzEwMzNcZnRuYmpc qRCcXOnxopQmKYjge5Gv J5BqYcWlIFaoihKyGXGo UbogbsmeYZIuDFL7paFd LSExYNplUNUcZSvbTe9m dJLmjFkgBiHlXLAye3zb yjRTisrtaOz6e5koDYIe OaT0mMSdSOgoV7efaaKe nMRqJWSkELe6aT10HNMo rI4ziLRyMVpvutJrLuO6 AIwhALJlLoS0TVZdiANm KNJhZ1fgDKIpLYgbIYNn GDfrmRQnRQC0pEqqn1T4 bGVzaGVldHtcZjBcZnMy BgEPu2TtDNe1wNumR0Yk YHFrVaV6mHEcWEMcNXoh TRCkNBOcunJ1hT77HEtw puZ8hRLbe2Rar31uj516 iC9txTXcBNP3RJRjHCMb gSTnCOOoZGZ0UYUnzQJf J0ciYJMnLU4aobdjOSjj HHsuUDWonKR4KEClaVYg U2WxGGPoZBxnXHCowkr8 RlSgGd3qyLWoiSwqQGcm k2hfw2qpcMEiBkg3VASr RmVzZjiuWGhqr6Tlh2jh BVCaek7sCCP9fEDmeIoy h6S5pBAdOAUvoKPcldMo HSFbFnC5JInrIQ8foq48 WMPrTJM7wa3wuFDpeCup gzQimWRbGUvzT6KuYUJs i543CWWoW3XqRMNxv3N1 kbWsHlDdBIUkvPF8mrU8 JHWuKGn8xDGplwU1nhRr nXFwA4qxuZ8aXNIaLQ4u lpoqc9caXPwhRCfnSRQk zLB2tmX2FPKzfSXgX5Gv yO9xEQNbLLupUCJblrb8 SsEpWw4mxLZmvYrrTJjp YmtwYWdlXHBnbmNvbnRc cGduZGVjXHBsYWluXHBs YWluXGYwXGZzMjRccWxc zFfihW8eTsDoBeOpNgin BR4jJRJpL0kfjPGuJZFb NCMwY8gqShKcwY5eqMvc YHcuamM8UOugVCgxvgLn wVVhnM6ycvVfGNMpFhUz biBhbmFseXplZCBieSB0 jVQrCYmcgvAmMRCbCL5z Z1ikVeKKuVO7JN6cHCVa AAV4zR8xNKLtDOJidGFj sM5vCDTwXIIkRIZpJWdg x4czwLQeUFV7hTkmuUDu f2Zeo6FpIMYiXIXmBEWn hyM1k8N0MCmfLNK0SSb2 CAAxrkoaV5WsaUCtj07c VGhpblByZXAgUGFwIHRl t1FxCnOzKe1pwI76cV4q YNW2fA3mPUJqNSZwoVFc bG5lDHJgUYjcY9RvIGEe aWVsZHMgZnJvbSBldmVy eSBzbGlkZSBhcmUgcmV2 sYP5CLDcEtmnJEIhuHRh fSOxqK2ynD1olXD6Onpy bGFpblxmMVxmczIyXGxh rsctAGDuHNuhF5seQsBj NGCfqJnoMZydo4FdDPRb XGZzMjJccGFyfX0= [facility] Performing Lab t7aadAYkYENgx1eiDXMr bGFuZzEwMzNcZnRuYmpc dWMxIHtccnRmMVxhbnNp XGRlZmxhbmcxMDMzXGZ0 beFlVPTfYUW6NLM4SnWd UPTwOiBqFIP4TPKwy2dj b4UdoRNkuTAsTMbbeTUg ciNqgv95jJK8tF42AM7f HRJzUoL0NWOhnjF4Qya0 FXZhVILcwMUoX718d5gx c8epjtOlpQU9bXcvAHUg kihyUnR1JTppWQXevjbl GKy7EYhqHMVobZB2XUKc xNBqN1HkDHZvTO0boih0 OKY1RZlwMVMmQqX9REKn nWGtGAUyqJptTLoar666 EKS1UnVbQBIwf6B4anAe UqMlEJNflTE4dzO5SALn ZH0suzvqd7ewMYkeQMbk WFWcnbV9byJ2IBGukNXn H0JciU9pKULmJO1xubcp y4wePQC7JBrrFUZoFRBc MJpsATFqMfOiALIhxM0e M7ToAQSbpHBwtzDfiMns T3b6y1CeF6rrp0hoT6ol xWKgA1UfFR0osdttbUKm Oh2slWHuZTQ7OyQLkTM0 YElwrrKmY3ynxceyFP7f mL4wE6NiePYkEAqhp2Dk zCZrZQqvRt0cSGOgvtpw GOc7IIQjFMXegMnwRJG7 GW01QEdjZIXevcMTYtFe IENsZXZlbGFuZCBPSCA0 BNC6WTJrD0fSSHasVkDJ DJO2QvI8EMyoRQM7qEwj cnRmMVxlcGljMTExMDJc FF1dnVtqkBn7qOwuCAZu poM8oTGqMSfki8xnJXW5 n4qswadcMOTwWOymKn1n dHRibHtcZjAgQXJpYWw7 rU46UVWdsY1ewTIfBPd7 XHBhcGVydzEyMjQwXHBh fXWhvZL3EAXkMH7wzsrl GYojXPzgZUMkiiX3DNGv rGKiI7ZcMPSuUG8vmwdp VSW4JSxhBDRqQKY4TiHz ADCgl8Ljiah3RkOzdTk7 p7ueWMOwUEPmpJomb7gz WES4ZYUecGUdA0ktmQ4d AMSvZR2mlslkc0kaILwb REwbOCDgvNX1hmI0ZWDz zHNdQ8CyeJ9vMKNeICZl mbKpwUcqbG5vEwLkUJDW nCXwjq7wwElvFGnacVGs pBYtoKL0aF5cSRInqoZi jl0nWAAiyIfdK7scfhXt GU8eSFAeyC7wZtCGBDis BXRncDA3vfNMc3OitSCv fBPJEZVgbiP2s3S5OEX4 BFKxOFR3K1oxAEVXzqZp mIVoFWTlk2wwXEQpNCLQ wGA9DNevloKnF9mvOYOt OTUgICBDTElBIyAzNkQw QzR1XQi1XRCuhvIqxJMn YNbwPf8dARCvnjztNVvw BUU6e3Z9CPuadXVgwiLC XY4rtDBcadtyVEHhfOBp fX0= [facility] Specimen Adequacy Satisfactory for interpretation. Transformation zone present [facility] POC PHARMACIST INTERN ULTRASOUNDon 11-26-19 Indication Viability; confirm cardiac activity Impression Single intrauterine gestational sac, CRL is appropriate for clinical dates, corresponding to ROLDAN 07/02/2025 Recommendations Follow up for 1st Trimester Anatomy with Nuchal Translucency as clinically indicated if desired. Method Transabdominal and transvaginal ultrasound examination Ordonez . Number of embryos: 1 Dating LMP on: 09/25/2024 GA by LMP 7 w + 4 d ROLDAN by LMP: 07/02/2025 Ultrasound examination on: 11/17/2024 GA by U/S based upon: CRL GA by U/S 7 w + 5 d ROLDAN by U/S: 07/01/2025 Assigned: based on the LMP, selected on 11/17/2024 Assigned GA 7 w + 4 d Assigned ROLDAN: 07/02/2025 Biometry Standard FHR 167 bpm CRL 14.0 mm 7w 5d 97% Hadlock Assessment Gestational sac: visualized Location: intrauterine Yolk sac: visualized Embryo: visualized CRL 14.0 mm 7w 5d 97% Hadlock Cardiac activity: present FHR 167 bpm General Evaluation Cardiac activity present. FHR 167 bpm Performed By: Pao Powell CNM Read By: Pao Powell CNM MATERNAL MEDICINE [facility] BACTERIAL CULTURE, URINEOrde red By: Rose Mary Talavera on 11-18-2024 Bacteria identified Cx Nom (U) 10,000 -<50,000 CFU/ml Normal urogenital elke [facility] BACTERIAL VAGINOSIS NAATon 0 11-18-2024 Interpretation and review of laboratory results Normal [facility] Lactobacillus crispatus+gasseri+gene enii + Gardnerella vaginalis + Atopobium vaginae rRNA SUSIE+probe Ql (Vag fld) Not detected Not detected [facility] Bacteria identified Cx Nom ( U)Ordered By: Rose Mary Talavera on 11-18-2024 [facility] C. trachomatis+N. gonorrhoea e DNA SUSIE+probe Ql (Unsp spec)on 11-18-2024 C. trachomatis rRNA SUSIE+probe Ql (Unsp spec) Not detected Not detected [facility] Interpretation and review of laboratory results Normal [facility] N. gonorrhoeae rRNA SUSIE+probe Ql (Unsp spec) Not detected Not detected [facility] This FDA-approved assay has been modified to accept rectal swabs self-collected in a healthcare setting. For self-collected rectal swabs, the test was developed and its performance characteristics determined by the [facility]'s [facility] [place] ([facility] It has not been cleared or approved by the FDA. [facility] is regulated under CLIA as qualified to perform high-complexity testing. This test is used for clinical purposes. It should not be regarded as investigational or for research. [facility] AMELIA/TRICHOMONAS NAATon 0 11-18-2024 C. glabrata RNA SUSIE+probe Ql (Vag fld) Not detected Not detected [facility] Amelia sp DNA SUSIE+probe Ql (Vag fld) Not detected Not detected [facility] Comment on above: The Amelia species group target includes C. albicans, C. tropicalis, C. parapsilosis, and C. dubliniensis. Interpretation and review of laboratory results Normal [facility] T. vaginalis DNA SUSIE+probe Ql (Unsp spec) Not detected Not detected [facility] BACTERIAL VAGINOSIS NAATon 0 11-17-2024 Lactobacillus crispatus+gasseri+gene enii + Gardnerella vaginalis + Atopobium vaginae rRNA SUSIE+probe Ql (Vag fld) Not detected Normal Not detected [facility] Comment on above: Order Comment: Speci men Type: BLOOD SPECIMEN Ordering Facility[facility] Address: [address] [place] [address] Performed By: #### 5 5454-3 #### [facility] CLIA [id number] [address] [place] [address] [place] Bacteria Ur Culton Bacteria identified Cx Nom (U) ORGANISM ID: 1 10,000 -<50,000 CFU/ml Normal urogenital elke Normal [facility] Comment on above: Performed By: #### 5 5454-3 #### [facility] CLIA [id number] [address] [place] [address] [place] C. trachomatis+N. gonorrhoea e DNA SUSIE+probe Ql (Unsp spec)on 11-17-2024 C. trachomatis rRNA SUSIE+probe Ql (Unsp spec) Not detected Normal Not detected [facility] Comment on above: Order Comment: Speci men Type: BLOOD SPECIMEN Order[facility] Facility[facility] Address: [address] [place] [address] Performed By: #### 5 5454-3 #### [facility] CLIA [id number] [address] [place] [address] [place] N. gonorrhoeae rRNA SUSIE+probe Ql (Unsp spec) Not detected Normal Not detected [facility] Comment on above: Order Comment: Speci men Type: BLOOD SPECIMEN Order[facility] Address: [address] [place] [address] Performed By: #### 5 5454-3 #### [facility] CLIA [id number] [address] [place] [address] [place] AMELIA/TRICHOMONAS NAATon 0 11-17-2024 C. glabrata RNA SUSIE+probe Ql (Vag fld) Not detected Normal Not detected [facility] Comment on above: Order Comment: Speci men Type: BLOOD SPECIMEN Order[facility] Address: [address] [place] [address] Performed By: #### 5 5454-3 #### [facility] CLIA [id number] [address] [place] [address] [place] Amelia sp DNA SUSIE+probe Ql (Vag fld) Not detected Normal Not detected [facility] Comment on above: Order Comment: Speci men Type: BLOOD SPECIMEN Order[facility]: [facility] Address: [address] [place] [address] Result Comment: The Amelia species group target includes C. albicans, C. tropicalis, C. parapsilosis, and C. dubliniensis. Performed By: #### 5 5454-3 #### [facility] CLIA [id number] [address] [place] [address] [place] T. vaginalis DNA SUSIE+probe Ql (Unsp spec) Not detected Normal Not detected [facility] Comment on above: Order Comment: Speci men Type: BLOOD SPECIMEN Order[facility] Address: [address] [place] [address] Performed By: #### 5 5454-3 #### [facility] CLIA [id number] [address] [place] [address] [place] PAP TESTon 11-17-2024 ADEQUACY Normal [facility] Comment on above: Order Comment: Speci men Type: FLUID SPECIMEN Order[facility] Address: [address] [place] [address] Result Comment: Sati sfactory for interpretation. Transformation zone present Performed By: #### L [id number] #### [facility] CLIA [id number] [address] [place] [address] [place] CASE REPORT Normal [facility] Comment on above: Order Comment: Speci men Type: FLUID SPECIMEN Order[facility] Address: [address] [place] [address] Result Comment: Gyne cologic Cytology Report Case: [id number] Authorizing Provider: Pao Powell APRN.CNM Collected: 11/17/2024 02:09 PM Ordering Location: OB/Gynecology Received: 11/17/2024 03:56 PM First Screen: Rubina Portillo, CT, ASCP Rescreen: Consuelo Palomo CT, ASCP Specimen: Pap Test, ThinPrep, Cervix Performed By: #### L [id number] #### [facility] CLIA [id number] [address] [place] [address] [place] CLINICAL HISTORY, CYTOLOGY, PRODUCTION OPERATIONS MANAGER Routine Exam Normal [facility] Comment on above: Order Comment: Speci men Type: FLUID SPECIMEN Order[facility] Address: [address] [place] [address] Performed By: #### L [id number] #### [facility] CLIA [id number] [address] [place] [address] [place] [address] [place] FINAL PERFORMING LAB Normal [facility] Comment on above: Order Comment: Speci men Type: FLUID SPECIMEN Ordering Facility: [facility] Address: [address] [place], [place] [address] Result Comment: Tech nical component, tire layer screening performed at: [facility], [facility] [address] [place] [address] CLIA: [id number] Diagnostic interpretation performed at: [facility], [address] [place] [address] CLIA# [id number] Housekeeping Cleaner: Florin Powers MD Performed By: #### L [id number] #### [facility] CLIA [id number] [address] [place] [address] [place] INTERPRETATION, CYTOLOGY, PRODUCTION OPERATIONS MANAGER Normal [facility] Comment on above: Order Comment: Speci men Type: FLUID SPECIMEN Order[facility] Facility[facility] Address: [address] [place] [address] Result Comment: Nega tive for intraepithelial lesion or malignancy. at 0943 EDT Performed By: #### L [id number] #### [facility] CLIA [id number] [address] [place], [place] [id number] [place] LMP 09/25/2024 Normal [facility] Comment on above: Order Comment: Speci men Type: FLUID SPECIMEN Ordering Facility[facility] Address: [address] [place], [place] [address] Performed By: #### L [id number] #### [facility] CLIA [id number] [address] [place], [place] [id number] [place] PAP DISCLAIMER COMMENT The Pap Smear is a screening test for cervical cancer. False negative results occur with all screening tests, emphasizing the need for rescreening at recommended intervals, and clinical correlation. Normal [facility] Comment on above: Order Comment: Speci men Type: FLUID SPECIMEN Ordering Facility[facility] Address: [address] [place] [address] Performed By: #### L [id number] #### [facility] CLIA [id number] [address] [place] [address] [place] PAP TERRITORY SALES EXECUTIVE COMMENT This specimen has been analyzed by the ThinPrep Imaging System, an automated imaging and review system, which assists the laboratory in evaluating cells on ThinPrep Pap tests. Following automated imaging, selected gee from every slide are reviewed by a tire layer. Normal [facility] Comment on above: Order Comment: Speci men Type: FLUID SPECIMEN Order[facility] Facility[facility] Address: [address] [place] [address] Performed By: #### L [id number] #### [facility] CLIA [id number] [address] [place] [address] [place] POC PHARMACIST INTERN ULTRASOUNDon 11-18-19 Radiology Study observation (narrative) [facility] Basophil percentageOrdered B y: Pao Powell on 09-19-2022 WBC (Bld) [#/Vol] 15.3 10*3/uL 4.4-11.0 [facility] Blood erythrocytes count (nu mber/volume)Ordered By: Pao Powell on 09-19-2022 RBC (Bld) [#/Vol] 3.64 10*6/uL 4.2-5.4 [facility] Blood hemoglobin measurement (mass/volume)Ordered By: Pao Powell on 09-19-2022 Hemoglobin (Bld) [Mass/Vol] 11.0 g/dL 12.0-15.0 [facility] Blood platelet mean volumeOr dered By: Pao Powell on 09-19-2022 Platelet mean volume (Bld) [Entitic vol] 10.4 fL 6.2-12.0 [facility] CBC-Complete Blood Cnt No Di ffon 09-19-2022 Erythrocyte distribution width (RBC) [Ratio] 14.5 % Normal 11.6-14.6 [facility] Comment on above: Order Comment: Reaso n for Laboratory Test Day #1 Performed By: #### L 100.0500 #### [facility] [address] [place], [address] Hematocrit (Bld) [Volume fraction] 33.9 % Low 37-47 [facility] Comment on above: Order Comment: Reaso n for Laboratory Test Day #1 Performed By: #### L 100.0500 #### [facility] [address] [place], [address] Hemoglobin (Bld) [Mass/Vol] 11.0 g/dL Low 12.0-15.0 [facility] Comment on above: Order Comment: Reaso n for Laboratory Test Day #1 Performed By: #### L 100.0500 #### [facility] [address] [place], [address] MCH (RBC) [Entitic mass] 30.2 pg Normal 27.0-32.0 [facility] Comment on above: Order Comment: Reaso n for Laboratory Test Day #1 Performed By: #### L 100.0500 #### [facility] [address] [place], [address] MCHC (RBC) [Mass/Vol] 32.4 g/dL Normal 32-36 [facility] Comment on above: Order Comment: Reaso n for Laboratory Test Day #1 Performed By: #### L 100.0500 #### [facility] [address] [place], [address] MCV (RBC) [Entitic vol] 93.1 fL Normal 81-99 [facility] Comment on above: Order Comment: Reaso n for Laboratory Test Day #1 Performed By: #### L 100.0500 #### [facility] [address] [place], [address] Platelet mean volume (Bld) [Entitic vol] 10.4 fL Normal 6.2-12.0 [facility] Comment on above: Order Comment: Reaso n for Laboratory Test Day #1 Performed By: #### L 100.0500 #### [facility] [address], [address] Platelets (Bld) [#/Vol] 232 10*3/uL Normal 150-450 [facility] Comment on above: Order Comment: Reaso n for Laboratory Test Day #1 Performed By: #### L 100.0500 #### [facility] [address] [place], [address] RBC (Bld) [#/Vol] 3.64 10*6/uL Low 4.2-5.4 [facility] Comment on above: Order Comment: Reaso n for Laboratory Test Day #1 Performed By: #### L 100.0500 #### [facility] [address] [place], [address] RDW SD 49.7 fl High 35.1-43.9 [facility] Comment on above: Order Comment: Reaso n for Laboratory Test Day #1 Performed By: #### L 100.0500 #### [facility] [address] [place], [address] WBC (Bld) [#/Vol] 15.3 10*3/uL High 4.4-11.0 [facility] Comment on above: Order Comment: Reaso n for Laboratory Test Day #1 Performed By: #### L 100.0500 #### [facility] [address] [place], [address] Determination of erythrocyte mean corpuscular volume (MCV)Ordered By: Pao Powell on 09-19-2022 MCV (RBC) [Entitic vol] 93.1 fL 81-99 [facility] Discharge Instructionon Discharge Instruction [facility] Medical Records Department [address] [place] [address] Instructions for Home/Discharge Instructions 09/19/22 0856 MR#: [id number] Acct: [id number] Name: MABEL DOMINGUEZ Rep #: [id number] : 2000 22 From: Yvonne Barone MD PCP: Dr. Luann Dunn MD Status:ADM IN Discharge Instructions Diet Discharge Diet: No restrictions Activity Discharge Activity: May Shower May resume sexual activity in: 6 weeks Weight Bearing Status: Weight bearing as tolerated Dressing / Incision Call your doctor if you observe: Fever of 101 or Higher, Coldness, Increased Pain, Change in Color, Inability to urinate, Inability to have a bowel movement, Using more than 1 pad per hour, Shortness of breath, Dizziness, Fainting spells, Chest pain, Increased palpitations (irregular heartbeat), Calf discomfort and Uncontrolled pain Suture Line Care: Avoid Pulling/Pushing and Avoid Pinching/Bending Follow Up Care Please Follow Up With: Yvonne Barone MD When: Follow up in 2 and 6 weeks for visits. Test Results: Test results from this visit will be discussed in further detail at your follow-up appointment, if applicable. Discharge Plan Admission Admit Date/Time: 09/18/22 07:05 Primary Reason for Your Visit: Vaginal delivery Attending Provider: Pao Powell Primary Care Provider: Luann Dunn Discharge Orders/Prescriptions Prescriptions: New acetaminophen 500 mg Tablet 1,000 mg PO Q6H PRN PRN (Reason: Pain 1-10 Or Fever) Qty: 0 0RF ibuprofen 600 mg Tablet 600 mg PO Q6H PRN PRN (Reason: Pain Score 1-3) Qty: 0 0RF Continued cetirizine 10 MG tablet 1 tab PO PRN PRN (Reason: allergies) Label Comments: TAKE 1 TABLET BY MOUTH EVERY DAY valacyclovir 1,000 MG tablet 1 tab PO DAILY montelukast 10 MG tablet 10 mg PO PRN PRN (Reason: allergies) vit,[id number] c 1 TABLET tablet 1 tab PO DAILY magnesium citrate 100 mg Capsule 400 mg PO PRN PRN (Reason: Constipation) Referrals / Follow Up: Luann Dunn MD [Primary Care Provider] - Disposition Disposition (needs filled in before D/C Order can be placed): Home, Self Care 09/19/22 0858 Yvonne Barone MD CC: Dr. Luann Dunn MD Signed Normal [facility] Hematocrit Auto (Bld) [Volum e fraction]Ordered By: Pao Powell on 09-19-2022 Hematocrit (Bld) [Volume fraction] 33.9 % 37-47 [facility] Laboratory - Hematology and Cell countsOrdered By: Pao Powell on 09-19-2022 Erythrocyte distribution width (RBC) [Entitic vol] 49.7 fL 35.1-43.9 [facility] Erythrocyte distribution width (RBC) [Ratio] 14.5 % 11.6-14.6 [facility] MCH (RBC) [Entitic mass] 30.2 pg 27.0-32.0 [facility] MCHC Auto (RBC) [Mass/Vol]Or dered By: Pao Powell on 09-19-2022 MCHC (RBC) [Mass/Vol] 32.4 g/dL 32-36 [facility] Platelets bldOrdered By: Aleshia Powell on 09-19-2022 Platelets (Bld) [#/Vol] 232 10*3/uL 150-450 [facility] 12 Lead EKGon 09-18-2022 12 Lead EKG [facility] Cardiovascular Services [address] [place] [address] 12 Lead EKG 09/18/22 0848 MR#: [id number] Acct: [id number] Name: MABEL DOMINGUEZ Rep #: [id number] : 2000 22 From: Todd Montague MD Attending Dr: Pao Powell CNM Status: ADM IN Ordering Dr: Pao Powell CNM Date: 09/18/22 Location: Sex: F C Admitted: 09/18/22 Test Reason : tachycardia Blood Pressure : / mmHG Vent. Rate : 128 BPM Atrial Rate : 128 BPM P-R Int : 114 ms QRS Dur : 096 ms QT Int : 308 ms P-R-T Axes : 048 041 005 degrees QTc Int : 449 ms Sinus tachycardia When compared with ECG of 04-JUL-2019 14:11, Vent. rate has increased BY 42 BPM Confirmed by SHARON PETERSON, TODD ([id number]), editor book PURA INFANTE ([id number]) on 09/19/2022 8:08:24 AM Referred By: Pao Powell Confirmed By:TODD MONTAGUE MD 09/19/22 0808 Date Todd Montague MD CC: MELODIE Powell; Dr. Luann Dunn MD Signed Normal [facility] Absolute lymphocyte countOrd ered By: Pao Powell on 09-18-2022 Lymphocytes Auto (Unsp spec) [#/Vol] 3.01 10*3/uL 0.83-4.51 [facility] Basophil percentageOrdered B y: Pao Powell on 09-18-2022 Basophils/100 WBC (Bld) 0.4 % 0-1 [facility] Bilirubin [Mass/Vol] 0.30 mg/dL 0.20-1.00 [facility] Comment on above: For patients on eltr ombopag therapy, use of Dimension [place] TBIL is not recommended. Chloride [Moles/Vol] 110 mmol/L 98-107 [facility] Eosinophils/100 WBC (Bld) 0.6 % 0-5 [facility] Glucose [Mass/Vol] 154 mg/dL 74-106 [facility] Comment on above: Fasting Glucose resu lt greater than or equal to 126 mg/dL suggests DIABETES MELLITUS per A.D.A. criteria. Neutrophils (Bld) [#/Vol] 7.1 10*3/uL 2.0-7.7 [facility] Neutrophils/100 WBC (Bld) 64.9 % 47-70 [facility] Potassium [Moles/Vol] 3.8 mmol/L 3.5-5.1 [facility] Comment on above: Moderate Hemolysis, Result may be falsely increased. Protein [Mass/Vol] 6.4 g/dL 6.4-8.2 [facility] Sodium [Moles/Vol] 141 mmol/L 136-145 [facility] Blood lymphocytes/100 leukoc ytesOrdered By: Pao Powell on 03-06-2023 Lymphocytes/100 WBC (Bld) 27.5 % 19-41 [facility] Blood monocytes/100 leukocyt esOrdered By: Pao Powell on 09-18-2022 Monocytes/100 WBC (Bld) 5.8 % 0-10 [facility] CBC W/Diff, Automatedon - Absolute Lymph 3.01 X10 3/uL Normal 0.83-4.51 [facility] Comment on above: Performed By: #### Stephanie RICE, L100.0100 #### [facility] Laboratory [address] [place], [address] Absolute Neut 7.1 X10 3/uL Normal 2.0-7.7 [facility] Comment on above: Performed By: #### Stephanie RICE, L100.0100 #### [facility] Laboratory [address] [place], [address] Basophils/100 WBC (Bld) 0.4 % Normal 0-1 [facility] Comment on above: Performed By: #### Stephanie RICE, L100.0100 #### [facility] Laboratory [address] [place], [address] Eosinophils/100 WBC (Bld) 0.6 % Normal 0-5 [facility] Comment on above: Performed By: #### Stephanie RICE, L100.0100 #### [facility] Laboratory [address] [place], [address] Erythrocyte distribution width (RBC) [Ratio] 14.5 % Normal 11.6-14.6 [facility] Comment on above: Performed By: #### Stephanie RICE, L100.0100 #### [facility] Laboratory [address] [place], [address] Hematocrit (Bld) [Volume fraction] 36.9 % Low 37-47 [facility] Comment on above: Performed By: #### Setphanie RICE, L100.0100 #### [facility] Laboratory [address] [place], [address] Hemoglobin (Bld) [Mass/Vol] 12.2 g/dL Normal 12.0-15.0 [facility] Comment on above: Performed By: #### Stephanie RICE, L100.0100 #### [facility] Laboratory [address] [place], [address] IG% 0.800 Normal 0.0-0.9 [facility] Comment on above: Result Comment: IG% - Immature Granulocytes (promyelocytes, myelocytes and metamyelocytes) > 1% indicates that a LEFT SHIFT is Present. Performed By: #### Stephanie RICE, L100.0100 #### [facility] Laboratory [address] [place], [address] Lymphocytes/100 WBC (Bld) 27.5 % Normal 19-41 [facility] Comment on above: Performed By: #### Stephanie RICE, L100.0100 #### [facility] Laboratory [address] [place], [address] MCH (RBC) [Entitic mass] 30.4 pg Normal 27.0-32.0 [facility] Comment on above: Performed By: #### Stephanie RICE, L100.0100 #### [facility] Laboratory [address] [place], [address] MCHC (RBC) [Mass/Vol] 33.1 g/dL Normal 32-36 [facility] Comment on above: Performed By: #### Stephanie RICE, L100.0100 #### [facility] Laboratory [address] [place], [address] MCV (RBC) [Entitic vol] 92.0 fL Normal 81-99 [facility] Comment on above: Performed By: #### Stephanie RICE, L100.0100 #### [facility] Laboratory [address] [place], [address] Monocytes/100 WBC (Bld) 5.8 % Normal 0-10 [facility] Comment on above: Performed By: #### Stephanie RICE, L100.0100 #### [facility] Laboratory [address] [place], [address] Neutrophils/100 WBC (Bld) 64.9 % Normal 47-70 [facility] Comment on above: Performed By: #### Stephanie RICE, L100.0100 #### [facility] Laboratory [address] [place], [address] Nucleated RBC (Bld) [#/Vol] 0 10*3/uL Normal 0-5 [facility] Comment on above: Performed By: #### Stephanie RICE, L100.0100 #### [facility] Laboratory [address] [place], [address] Platelet mean volume (Bld) [Entitic vol] 10.2 fL Normal 6.2-12.0 [facility] Comment on above: Performed By: #### Stephanie RICE, L100.0100 #### [facility] Laboratory [address] [place], [address] Platelets (Bld) [#/Vol] 270 10*3/uL Normal 150-450 [facility] Comment on above: Performed By: #### Stephanie RICE, L100.0100 #### [facility] Laboratory [address] [place], [address] RBC (Bld) [#/Vol] 4.01 10*6/uL Low 4.2-5.4 [facility] Comment on above: Performed By: #### Stephanie RICE, L100.0100 #### [facility] Laboratory [address] [place], [address] RDW SD 48.5 fl High 35.1-43.9 [facility] Comment on above: Performed By: #### Stephanie RICE, L100.0100 #### [facility] Laboratory [address] [place], [address] WBC (Bld) [#/Vol] 11.0 10*3/uL Normal 4.4-11.0 [facility] Comment on above: Performed By: #### B TS, L100.0100 #### [facility] Laboratory [address] [place], [address] Comprehensive Metabolic Prof ilon 09-18-2022 Albumin [Mass/Vol] 2.7 g/dL Low 3.2-5.0 [facility] Comment on above: Order Comment: Add o n Performed By: #### L [id number] #### [facility] Laboratory [address] [place], [address] Albumin/Globulin [Mass ratio] 0.7 {ratio} Low 0.9-2.4 [facility] Comment on above: Order Comment: Add o n Performed By: #### L [id number] #### [facility] Laboratory [address] [place], [address] ALK P 168 U/L High 45-117 [facility] Comment on above: Order Comment: Add o n Performed By: #### L [id number] #### [facility] Laboratory [address] [place], [address] ALT [Catalytic activity/Vol] 14 U/L Normal 13-56 [facility] Comment on above: Order Comment: Add o n Performed By: #### L [id number] #### [facility] Laboratory [address] [place], [address] AST [Catalytic activity/Vol] 28 U/L Normal 15-37 [facility] Comment on above: Order Comment: Add o n Result Comment: Mode rate Hemolysis, Result may be falsely increased. Performed By: #### L [id number] #### [facility] Laboratory [address] [place], [address] Bilirubin [Mass/Vol] 0.30 mg/dL Normal 0.20-1.00 [facility] Comment on above: Order Comment: Add o n Result Comment: For patients on eltrombopag therapy, use of Dimension [place] TBIL is not recommended. Performed By: #### L [id number] #### [facility] Laboratory [address] [place], [address] BUN/CRE 8.6 RATIO Low 10-20 [facility] Comment on above: Order Comment: Add o n Performed By: #### L [id number] #### [facility] Laboratory [address] [place], [address] CA,Total 8.9 mg/dL Normal 8.5-10.1 [facility] Comment on above: Order Comment: Add o n Performed By: #### L [id number] #### [facility] Laboratory [address] [place], [address] Chloride [Moles/Vol] 110 mmol/L High 98-107 [facility] Comment on above: Order Comment: Add o n Performed By: #### L [id number] #### [facility] Laboratory [address] [place], [address] CO2 [Moles/Vol] 18.0 mmol/L Low 21.0-32.0 [facility] Comment on above: Order Comment: Add o n Performed By: #### L [id number] #### [facility] Laboratory [address] [place], [address] Creatinine [Mass/Vol] 0.58 mg/dL Normal 0.55-1.02 [facility] Comment on above: Order Comment: Add o n Result Comment: The validity of the calculated GFR GFRAA in patients over 70 years has not been determined. Clinical correlation is essential. Performed By: #### L [id number] #### [facility] Laboratory [address] [place], [address] ECRCL 118.29 ml/min Normal [facility] Comment on above: Order Comment: Add o n Performed By: #### L [id number] #### [facility] Laboratory [address] [place], [address] EST GFR - AA 163 mL/min Normal >60 [facility] Comment on above: Order Comment: Add o n Result Comment: Afri can Guinean GFR Calc Performed By: #### L [id number] #### [facility] Laboratory [address] [place], [address] GAP 13 Normal 5-15 [facility] Comment on above: Order Comment: Add o n Performed By: #### L [id number] #### [facility] Laboratory [address] [place], [address] GFR/1.73 sq M.predicted among non-blacks MDRD (S/P/Bld) [Vol rate/Area] 135 mL/min/{1.73_m2} Normal >60 [facility] Comment on above: Order Comment: Add o n Result Comment: Non- GFR Calc Performed By: #### L 500.4050 #### [facility] Laboratory [address] [place], [address] Globulin (S) [Mass/Vol] 3.7 g/dL Normal 2.2-4.2 [facility] Comment on above: Order Comment: Add o n Performed By: #### L 500.4050 #### [facility] Laboratory [address] [place], [address] Glucose [Mass/Vol] 154 mg/dL High 74-106 [facility] Comment on above: Order Comment: Add o n Result Comment: Fast ing Glucose result greater than or equal to 126 mg/dL suggests DIABETES MELLITUS per A.D.A. criteria. Performed By: #### L [id number] #### [facility] Laboratory [address] [place], [address] Potassium [Moles/Vol] 3.8 mmol/L Normal 3.5-5.1 [facility] Comment on above: Order Comment: Add o n Result Comment: Mode rate Hemolysis, Result may be falsely increased. Performed By: #### L [id number] #### [facility] Laboratory [address] [place], [address] Sodium [Moles/Vol] 141 mmol/L Normal 136-145 [facility] Comment on above: Order Comment: Add o n Performed By: #### L [id number] #### [facility] Laboratory [address] [place], [address] T PROT 6.4 g/dL Normal 6.4-8.2 [facility] Comment on above: Order Comment: Add o n Performed By: #### L [id number] #### [facility] Laboratory [address] [place], [address] Urea nitrogen [Mass/Vol] 5 mg/dL Low 7-18 [facility] Comment on above: Order Comment: Add o n Performed By: #### L [id number] #### [facility] Laboratory [address] [place], [address] Echo Completeon 09-18-2022 Echo Complete [facility] Cardiovascular Services [address] [place] [address] Echo Complete 09/18/22 1041 MR#: [id number] Acct: [id number] Name: MABEL DOMINGUEZ Rep #: [id number] : 2000 22 From: Todd Montague MD Attending Dr: Pao Powell CNM Status: ADM IN Ordering Dr: Pao Powell CNM Date: 09/18/22 Location: Sex: F C Admitted: 09/18/22 Reason For Study: ANB EKG Procedure This was a 2D Doppler, Color Flow transthoracic echocardiogram. Technically difficult study due to patient in active labor. Exam performed portable in patient room. Left Ventricle Normal LV size. Left ventricular systolic function is normal. The estimated ejection fraction is 60 %. No regional wall motion abnormalities noted. Right Ventricle Normal RV size. Normal systolic function. Atria Normal left atrium. Normal right atrium. Mitral Valve Normal mitral valve. Tricuspid Valve Normal tricuspid valve. Mild (1+) tricuspid valve insufficiency. Pulmonary artery systolic pressure is 30 mmHg. Aortic Valve Normal aortic valve. Trisinus/trileaflet aortic valve. Pulmonic Valve Normal pulmonic valve. Great Vessels Normal aortic root. The pulmonary artery is normal size. Normal inferior vena cava. Pericardium/Pleural No pericardial effusion. MMode/2D Measurements Calculations LVIDd: 5.2 cm IVSd: 0.95 cm LAV(MOD-sp4): 27.7 ml LVIDs: 3.9 cm LVPWd: 0.76 cm FS: 25.1 % _ LVAd ap4: 22.9 cm2 SV(MOD-sp4): 39.4 ml SV(sp4-el): 41.4 ml LVLd ap4: 7.0 cm EDV(MOD-sp4): 61.7 ml EDV(sp4-el): 63.5 ml LVAs ap4: 12.8 cm2 LVLs ap4: 6.3 cm ESV(MOD-sp4): 22.3 ml ESV(sp4-el): 22.1 ml EF(MOD-sp4): 63.9 % EF(sp4-el): 65.2 % _ LA A4 area: 12.5 cm2 RA A4 area: 13.1 cm2 Time Measurements MV dec time: 0.04 sec Doppler Measurements Calculations MV E max kennedy: 67.1 cm/sec Lat Peak E' Kennedy: 12.4 cm/sec Med Peak E' Kennedy: 8.9 cm/sec MV A max kennedy: 75.6 cm/sec E/E' lat: 5.4 E/E' med: 7.6 MV E/A: 0.89 _ Ao V2 max: 135.4 cm/sec LV V1 max: 125.7 cm/sec MV dec slope: 1567 cm/sec2 Ao max P.5 mmHg LV V1 max P.3 mmHg Ao V2 mean: 92.5 cm/sec LV V1 mean P.8 mmHg Ao mean P.9 mmHg LV V1 mean: 76.8 cm/sec Ao V2 VTI: 17.7 cm LV V1 VTI: 19.1 cm AV (velocity ratio): 1.1 _ PA V2 max: 148.0 cm/sec TR max kennedy: 254.3 cm/sec PA V2 mean: 104.4 cm/sec TR max P.9 mmHg ECHO/Echo Complete Interpretation Summary Normal LV size. Left ventricular systolic function is normal. The estimated ejection fraction is 60 %. Structurally normal valves. Ordering Physician: Pao Powell Referring Physician: Pao Powell Performed By: Ching Haq RCS 09/18/22 1111 Date Todd Montague MD CC: MELODIE Powell; Dr. Luann Dunn MD Date Dictated: 09/18/22 1041 Date Transcribed: 09/18/22 1111 Gizzard Skin Remover: Signed Normal [facility] H AND P Exam - OB/GYNon H&P Exam - MARKETING PROFESSIONAL [facility] Medical Records Department [address] [place] [address] H P Exam - MARKETING PROFESSIONAL 09/18/22 0856 MR#: [id number] Acct: [id number] Name: MABEL DOMINGUEZ Rep #: [id number] : 2000 22 From: Pao Powell CNM PCP: Dr. Luann Dunn MD Status:ADM IN Location: [id number] HPI - General General Date of Admission: 09/18/22 HPI Narrative MABEL DOMINGUEZ, is a 22 F who presents at 39w2d with induction of labor. 2 vessel umbilical cord[facility] Medical History (Updated 09/18/22 @ 18:02 by Pao Powell CNM) Anxiety Former smoker History of depression History of herpes genitalis depression Home Medications cetirizine 10 mg tablet 1 tab PO PRN PRN allergies 07/04/19 [History Last Taken Unknown] montelukast 10 mg tablet 10 mg PO PRN PRN allergies 07/04/19 [History Last Taken Unknown] vits,calcium no.78-iron fumarate-folic acid 29 mg-1 mg tablet 1 tab PO DAILY 07/04/19 [History Last Taken 09/17/22] valacyclovir 1 gram tablet 1 tab PO DAILY hx genital herpes 07/04/19 [History Last Taken 09/18/22] magnesium citrate 100 mg capsule 400 mg PO PRN PRN Constipation 09/18/22 [History Last Taken 09/17/22] Allergy/AdvReac Type Severity Reaction Status Date / Time Penicillins [PCN] Allergy Unknown Verified 07/04/19 07:33 Social History Smoking Status: Former smoker History Elective abortions Hx Para 1 Spontaneous abortions Hx # Term Pregnancies Ectopic pregnancies Hx # Pregnancies Multiple births # of living children NST FHR Rate Baby A Baseline: 155 Variability:: Moderate Accelerations:: 15 x 15 Decelerations:: Variable FHR Category:: Category II Uterine Activity:: None ROS Constitutional Constitutional: Reports systems reviewed and no addt'l complaints, except as documented; Denies headache(s) Eyes Eyes: Denies acute decrease in peripheral vision, blurry vision or change in vision ENT HEENT: Reports systems reviewed and no addt'l complaints, except as documented Cardiovascular Cardiovascular: Denies chest pain or dizziness Respiratory/Chest Respiratory/Chest: Denies cough, dyspnea, dyspnea on exertion, shortness of breath at rest or shortness of breath with exertion Gastrointestinal Gastrointestinal: Denies abdominal pain, diarrhea, nausea or vomiting Genitourinary Genitourinary: Denies abdominal discomfort Musculoskeletal Musculoskeletal: Denies limited range of motion Integumentary Integumentary: Reports systems reviewed and no addt'l complaints, except as documented Neurologic Neurologic: Reports systems reviewed and no addt'l complaints, except as documented Psychiatric Psychiatric: Reports systems reviewed and no addt'l complaints, except as documented Endocrine Endocrinology: Reports systems reviewed and no addt'l complaints, except as documented Hematologic/Lymphati c Hematologic/Lymphati c: Reports systems reviewed and no addt'l complaints, except as documented Allergic/Immunologic Allergic/Immunologic : Reports systems reviewed and no addt'l complaints, except as documented Vital Signs Vital Signs Vital Signs: 09/18/22 07:56 09/18/22 07:56 09/18/22 07:57 Temperature 97.9 F Pulse Rate 135 H Blood Pressure 119/69 BP Systolic 119 BP Diastolic 69 Pulse Ox 09/18/22 07:57 09/18/22 08:06 09/18/22 08:06 Temperature Pulse Rate 133 H Blood Pressure BP Systolic BP Diastolic Pulse Ox 98 96 09/18/22 08:11 09/18/22 08:11 09/18/22 08:16 Temperature Pulse Rate 133 H 129 H Blood Pressure BP Systolic BP Diastolic Pulse Ox 96 09/18/22 08:16 09/18/22 08:21 09/18/22 08:21 Temperature Pulse Rate 127 H Blood Pressure BP Systolic BP Diastolic Pulse Ox 97 96 09/18/22 08:26 09/18/22 08:26 09/18/22 08:31 Temperature Pulse Rate 129 H 128 H Blood Pressure BP Systolic BP Diastolic Pulse Ox 97 09/18/22 08:31 09/18/22 08:30 09/18/22 08:36 Temperature 97.9 F Pulse Rate 135 H Blood Pressure BP Systolic BP Diastolic Pulse Ox 98 09/18/22 08:36 09/18/22 08:41 09/18/22 08:41 Temperature Pulse Rate 139 H Blood Pressure BP Systolic BP Diastolic Pulse Ox 97 99 09/18/22 08:46 09/18/22 08:46 09/18/22 08:51 Temperature Pulse Rate 136 H Blood Pressure BP Systolic BP Diastolic Pulse Ox 98 98 09/18/22 08:51 Temperature Pulse Rate 126 H Blood Pressure BP Systolic BP Diastolic Pulse Ox Weight Weight: 194 lb 3.2 oz Body Mass Index (BMI) 35.5 Physical Exam Const alert and oriented x3 General Appearance: cooperative Orientation / Consciousnes (more content not included)... Normal [facility] L509.8000on 09-18-2022 Syphilis Abs Non-Reactive Normal [facility] Comment on above: Performed By: #### L 509.8000 #### [facility] Laboratory [address] [place] [address], [id number] Laboratory - Chemistry and C hemistry - challengeOrdered By: Pao Powell on 09-18-2022 ALP [Catalytic activity/Vol] 168 U/L 45-117 [facility] ALT [Catalytic activity/Vol] 14 U/L 13-56 [facility] CO2 [Moles/Vol] 18.0 mmol/L 21.0-32.0 [facility] Globulin (S) [Mass/Vol] 3.7 g/dL 2.2-4.2 [facility] Urea nitrogen/Creatinine [Mass ratio] 8.6 mg/mg 10-20 [facility] Laboratory - Hematology and Cell countsOrdered By: Pao Powell on 09-18-2022 Immature granulocytes/100 WBC (Bld) 0.800 % 0.0-0.9 [facility] Comment on above: IG% - Immature Granu locytes (promyelocytes, myelocytes and metamyelocytes) > 1% indicates that a LEFT SHIFT is Present. Nucleated RBC/100 WBC (Bld) [Ratio] 0 % 0-5 [facility] No Panel InformationOrdered By: Pao Powell on 09-18-2022 Estimated Creatinine Clearance Calc 118.29 ml/min [facility] [facility] Estimated GFR (MDRD) Amer 163 mL/min >60 [facility] Comment on above: GFR Calc Estimated GFR (MDRD) Non-Af Amer 135 mL/min >60 [facility] Comment on above: Non- GFR Calc Operative Reporton 3 Operative Report [facility] Medical Records Department [address] [place] [address] Operative Report 09/18/22 1805 MR#: [id number] Acct: [id number] Name: MABEL DOMINGUEZ Rep #: [id number] : 2000 22 From: Pao Powell CNM PCP: Dr. Luann Dunn MD Status:ADM [id number] Plan (1) Vaginal delivery: (2) First degree laceration of perineum during delivery, : (3) depression: (4) History of depression: (5) History of herpes genitalis: Maternal Data Information Gestational age: 39w2d Vaginal Delivery Maternal Presentation Maternal Presentation: Induction of labor, obesity and 2 vessel umbilical cord Type of Induction: Pitocin Operative Information Date of Procedure: 09/18/22 Pre-Operative Diagnosis: Induction of labor Post-Operative Diagnosis: , episiotomy first degree Surgery / Procedure Performed: Spontaneous Vaginal Delivery Type of Anesthesia: Epidural Estimated Blood Loss: 200 ml Time of Delivery: 17:25 Findings Description of Procedure: Progressed to complete with urge to push. Epidural for pain management. of viable female over first degree episiotomy. APGARS 8,9 respectively. Episiotomy completed after patient consent for heart rate decelerations and long perineum holding from delivery. head delivered with body immediately forthcoming. Placed on maternal abdomen, strong cry. Mouth and nares suctioned for secretions. Pitocin started for active 3rd stage management. Cord doubly clamped and cut by FOB after pulsations ceased, delayed cord clamping. Placenta delivered intact via wendy 2 vessel cord intact. Perineum inspected and revealed 1st degree perineal laceration. Repaired with 3.0 vicryl rapide and epidural. Fundus firm and hemostasis achieved. EBL 200ml. Mom and baby stable, planning to breastfeed. Family bonding well. notified of delivery. Presentation: Vertex Amniotic Membrane Rupture Type: Artificial Amniotic Fluid Description: Clear Placental Delivery Description: Spontaneous Placenta Disposition: [facility] Cord Vessel Description: 2 Vessels Cord Entanglement: None A Gender: Female (1 minute): 8 (5 minute): 9 Delayed Cord Clamping: Yes Post Vaginal Delivery Medications Given After Delivery: IV Pitocin Episiotomy Description: Midline and 1st degree Laceration: None Complication Complications: None 09/18/221809 Cosigner Signature (if applicable): CC: MELODIE Powell; Dr. Luann Dunn MD Signed Normal [facility] Serum Treponema species anti body detectionOrdered By: Pao Powell on 09-18-2022 Treponema sp Ab Ql (S) Non-Reactive [facility] Serum or plasma albumin dmitry urement (mass/volume)Ordered By: Pao Powell on 09-18-2022 Albumin [Mass/Vol] 2.7 g/dL 3.2-5.0 [facility] Serum or plasma albumin/glob ulin mass ratioOrdered By: Pao Powell on 09-18-2022 Albumin/Globulin [Mass ratio] 0.7 {ratio} 0.9-2.4 [facility] Serum or plasma calcium dmitry urement (mass/volume)Ordered By: Pao Powell on 09-18-2022 Calcium [Mass/Vol] 8.9 mg/dL 8.5-10.1 [facility] Serum or plasma creatinine m easurement (mass/volume)Ordered By: Pao Powell on 09-18-2022 Creatinine [Mass/Vol] 0.58 mg/dL 0.55-1.02 [facility] Comment on above: The validity of the calculated GFR & GFRAA in patients over 70 years has not been determined. Clinical correlation is essential. Serum or plasma urea nitroge n measurement (mass/volume)Ordered By: Pao Powell on 09-18-2022 Urea nitrogen [Mass/Vol] 5 mg/dL 7-18 [facility] Thin prep Papanicolaou smear with manual screeningOrdered By: Pao Powell on 09-18-2022 Thin prep Papanicolaou smear with manual screening 28 U/L 15-37 [facility] Comment on above: Moderate Hemolysis, Result may be falsely increased. Thin prep Papanicolaou smear with manual screening 13 5-15 [facility] Type AND Screenon 09-18-2022 ABO and Rh group Nom (Bld) Blood group A Rh(D) positive Normal [facility] Comment on above: Order Comment: Labor Performed By: #### B TS, L100.0100 #### [facility] Laboratory [address] [place], [place], [id number] URINE OB DIP B/Oon 3 Glucose Ql (U) Negative Neg mg/dL [facility] Protein.monoclonal (U) [Mass/Vol] Negative Neg mg/dL [facility] URINE OB DIP B/Oon 3 Glucose Ql (U) Negative Neg mg/dL [facility] Protein.monoclonal (U) [Mass/Vol] Negative Neg mg/dL [facility] No Panel Informationon 08-02 [facility] URINE OB DIP B/Oon 3 Glucose Ql (U) Negative Neg mg/dL [facility] Protein.monoclonal (U) [Mass/Vol] Negative Neg mg/dL [facility] URINE OB DIP B/Oon 3 Glucose Ql (U) Negative Neg mg/dL [facility] Protein.monoclonal (U) [Mass/Vol] Negative Neg mg/dL [facility] OBSTETRIC ULTRASOUND WHIon 1 [facility] URINE OB DIP B/Oon 2 Glucose Ql (U) Negative Neg mg/dL [facility] Protein.monoclonal (U) [Mass/Vol] Negative Neg mg/dL [facility] URINE OB DIP B/Oon 2 Glucose Ql (U) Negative Neg mg/dL [facility] Protein.monoclonal (U) [Mass/Vol] Negative Neg mg/dL [facility] Vital Signs Date Time Vital Sign Value Performing Clinician Faci lity 03-12-2025 14:29-0400 Body mass index (BMI) [Ratio] 33.11 kg/m2 [facility] Plotts HYDROLOGY TEACHER.CNM Work Phone: [facility] 03-12-2025 14:290400 Body weight 82.1 kg Latasha Plotts HYDROLOGY TEACHER.CNM Work Phone: [facility] 03-12-2025 14:290400 Diastolic blood pressure 60 mm[Hg] Latasha Plotts HYDROLOGY TEACHER.CNM Work Phone: [facility] 03-12-2025 14:290400 Systolic blood pressure 110 mm[Hg] Latasha Plotts HYDROLOGY TEACHER.CNM Work Phone: [facility] 02-12-2025 14:11-0400 Body mass index (BMI) [Ratio] 32.19 kg/m2 Pao Powell HYDROLOGY TEACHER.CNM Work Phone: [facility] 02-12-2025 [id number] Body weight 79.83 kg Pao Powell HYDROLOGY TEACHER.CNM Work Phone: [facility] 02-12-2025 14:11-0400 Diastolic blood pressure 68 mm[Hg] Pao Powell HYDROLOGY TEACHER.CNM Work Phone: [facility] 02-12-2025 [id number] Systolic blood pressure 106 mm[Hg] Pao Powell HYDROLOGY TEACHER.CNM Work Phone: [facility] 01-15-2025 14:26-0400 Body mass index (BMI) [Ratio] 31.75 kg/m2 Latasha Plotts HYDROLOGY TEACHER.CNM Work Phone: [facility] 01-15-2025 [id number] Body weight 78.74 kg Latasha Villarrealts HYDROLOGY TEACHER.CNM Work Phone: [facility] 01-15-2025 14:26-0400 Diastolic blood pressure 64 mm[Hg] Latasha Plotts HYDROLOGY TEACHER.CNM Work Phone: [facility] 01-15-2025 14:26-0400 Systolic blood pressure 118 mm[Hg] Latasha Plotts HYDROLOGY TEACHER.CNM Work Phone: [facility] 12-18-2024 15:08-0400 Body mass index (BMI) [Ratio] 31.46 kg/m2 Latasha Plotts HYDROLOGY TEACHER.CNM Work Phone: [facility] 12-18-2024 15:08-0400 Body weight 78.02 kg Latasha Villarrealts HYDROLOGY TEACHER.CNM Work Phone: [facility] 12-18-2024 15:08-0400 Diastolic blood pressure 66 mm[Hg] Latasha Plotts HYDROLOGY TEACHER.CNM Work Phone: [facility] 12-18-2024 15:08-0400 Systolic blood pressure 110 mm[Hg] Latasha Plotts HYDROLOGY TEACHER.CNM Work Phone: [facility] 11-17-2024 13:05-0400 Body height 157.5 cm Pao Powell HYDROLOGY TEACHER.CNM Work Phone: [facility] 11-17-2024 13:05-0400 Body mass index (BMI) [Ratio] 32.19 kg/m2 Pao Powell HYDROLOGY TEACHER.CNM Work Phone: [facility] 11-17-2024 13:05-0400 Body weight 79.83 kg Pao Powell HYDROLOGY TEACHER.CNM Work Phone: [facility] 11-17-2024 13:05-0400 Diastolic blood pressure 70 mm[Hg] Pao Powell HYDROLOGY TEACHER.CNM Work Phone: [facility] 11-17-2024 13:05-0400 Systolic blood pressure 122 mm[Hg] Pao Powell HYDROLOGY TEACHER.CNM Work Phone: [facility] 10-02-2022 13:16-0400 Body weight 78.02 kg Pao Powell HYDROLOGY TEACHER.CNM Work Phone: [facility] 10-02-2022 13:16-0400 Diastolic blood pressure 62 mm[Hg] Pao Powell HYDROLOGY TEACHER.CNM Work Phone: [facility] 10-02-2022 13:16-0400 Systolic blood pressure 108 mm[Hg] Paocarlos Powell APRN.CNM Work Phone: [facility] 09-19-2022 15:51-0500 Body temperature 97.9 [degF] Dr. Luann Dunn Work Phone: [facility] 09-19-2022 15:51-0500 Diastolic blood pressure 71 mm[Hg] Dr. Luann Dunn Work Phone: [facility] 09-19-2022 15:51-0500 Heart rate 84 /min Dr. Luann Dunn Work Phone: [facility] 09-19-2022 15:51-0500 Respiratory rate 14 /min Dr. Luann Dunn Work Phone: [facility] 09-19-2022 15:51-0500 SaO2% (BldA) [Mass fraction] 99 % Dr. Luann Dunn Work Phone: [facility] 09-19-2022 15:51-0500 Systolic blood pressure 123 mm[Hg] Dr. Luann Dunn Work Phone: [facility] 09-18-2022 07:24-0500 Body height 157.[address] Luann Dunn Work Phone: [facility] 09-18-2022 07:24-0500 Body mass index (BMI) [Ratio] 35.5 kg/m2 Dr. Luann Dunn Work Phone: [facility] 09-18-2022 07:24-0500 Body weight 88.[address] Luann Dunn Work Phone: [facility] 09-08-2022 15:50-0500 Body weight 87.09 kg Mora Kraus MD Work Phone: [facility] 09-08-2022 15:50-0500 Diastolic blood pressure 64 mm[Hg] Mora Kraus MD Work Phone: [facility] 09-08-2022 15:50-0500 Systolic blood pressure 110 mm[Hg] Mora Kraus MD Work Phone: [facility] 08-31-2022 15:01-0500 Body weight 86.46 kg Nisreen Cardzoo MD Work Phone: [facility] 08-31-2022 15:01-0500 Diastolic blood pressure 66 mm[Hg] Nisreen Cardozo MD Work Phone: [facility] 08-31-2022 15:01-0500 Systolic blood pressure 106 mm[Hg] Nisreen Cardozo MD Work Phone: [facility] 08-02-2022 14:59-0500 Body weight 84.55 kg Pao Powell HYDROLOGY TEACHER.CNM Work Phone: [facility] 08-02-2022 14:59-0500 Diastolic blood pressure 62 mm[Hg] Pao Powell HYDROLOGY TEACHER.CNM Work Phone: [facility] 08-02-2022 14:59-0500 Systolic blood pressure 102 mm[Hg] Pao Powell HYDROLOGY TEACHER.CNM Work Phone: [facility] 07-18-2022 15:04-0500 Body weight 83.92 kg Latasha Plotts HYDROLOGY TEACHER.CNM Work Phone: [facility] 07-18-2022 15:04-0500 Diastolic blood pressure 66 mm[Hg] Latasha Plotts HYDROLOGY TEACHER.CNM Work Phone: [facility] 07-18-2022 15:04-0500 Systolic blood pressure 110 mm[Hg] Latasha Plotts HYDROLOGY TEACHER.CNM Work Phone: [facility] 04-28-2022 14:12-0400 Body weight 78.93 kg Latasha Plotts HYDROLOGY TEACHER.CNM Work Phone: [facility] 04-28-2022 14:12-0400 Diastolic blood pressure 62 mm[Hg] Latasha Plotts HYDROLOGY TEACHER.CNM Work Phone: [facility] 04-28-2022 14:12-0400 Systolic blood pressure 120 mm[Hg] Latasha Plotts HYDROLOGY TEACHER.CNM Work Phone: [facility] 03-30-2022 13:18-0400 Body weight 79.83 kg Nisreen Cardozo MD Work Phone: [facility] 03-30-2022 13:18-0400 Diastolic blood pressure 66 mm[Hg] Nisreen Cardozo MD Work Phone: [facility] 03-30-2022 13:18-0400 Systolic blood pressure 122 mm[Hg] Nisreen Cardozo MD Work Phone: [facility] 03-02-2022 13:10-0400 Body height 158 cm Latasha Plotbette HYDROLOGY TEACHER.CNM Work Phone: [facility] 03-02-2022 13:10-0400 Body weight 80.29 kg Latasha Kendrick HYDROLOGY TEACHER.CNM Work Phone: [facility] 03-02-2022 13:10-0400 Diastolic blood pressure 62 mm[Hg] Latasha Plotts HYDROLOGY TEACHER.CNM Work Phone: [facility] 03-02-2022 13:10-0400 Systolic blood pressure 122 mm[Hg] Latasha Plotts HYDROLOGY TEACHER.CNM Work Phone: [facility] Encounters Encounter Date Encounter Type Care Provider Facility Start: 05-21-2025 End: 05-21-2025 ambulatory LATASHA KENDRICK Facility:[facility] Start: 05-07-2025 End: 05-07-2025 ambulatory LATASHA KENDRICK Facility:[facility] Start: 04-21-2025 End: 04-21-2025 ambulatory YVONNE BARONE Facility:[facility] Start: 04-09-2025 End: 04-09-2025 ambulatory LATASHA KENDRICK Facility:[facility] Start: 03-12-2025 End: 03-12-2025 Patient encounter procedure Latasha Kendrick HYDROLOGY TEACHER.CNM Work Phone: OB/Gynecology Comment on above: Screening for diabet es mellitus (Primary Dx); 24 weeks gestation of (HCC); Supervision of high risk in second trimester (HCC); Obesity in (HCC); Anxiety about health Start: 03-12-2025 End: 03-12-2025 [facility] LATASHA CRISTIANOBETTE Facility:[facility] Start: 02-12-2025 End: 02-12-2025 Patient encounter procedure [employer] [facility] Comment on above: Encounter for anatomic survey (HCC) (Primary Dx); 20 weeks gestation of (HCC); Obesity affecting in second trimester, unspecified obesity type (HCC) Supervision of high risk in second trimester (HCC) (Primary Dx); Obesity in (HCC); 20 weeks gestation of (HCC); Supervision of other high risk pregnancies, first trimester (HCC) Start: 02-12-2025 End: 02-12-2025 [facility] Facility:[facility] Start: 01-15-2025 End: 01-15-2025 Patient encounter procedure Latasha Cristianobette HYDROLOGY TEACHER.JWM Work Phone: OB/Gynecology Comment on above: 16 weeks gestation o f (HCC) (Primary Dx); Supervision of other high risk pregnancies, first trimester (HCC); Obesity in (HCC) Start: 01-15-2025 [facility] Start: 12-18-2024 End: 12-18-2024 [facility] Facility:[facility] Start: 12-18-2024 End: 12-18-2024 Patient encounter procedure Latasha Cristianobette HYDROLOGY TEACHER.CNM Work Phone: OB/Gynecology Comment on above: Supervision of other high risk pregnancies, first trimester (HCC) (Primary Dx); 12 weeks gestation of (HCC); Nausea and vomiting in (HCC); Obesity in (HCC) Encounter for antena savita screening for malformation using ultrasound ([facility]) (Primary Dx); Encounter for (NT) nuchal translucency scan ([facility]); 12 weeks gestation of (HCC) Start: 12-18-2024 End: 12-18-2024 [facility] Facility:[facility] Start: 11-19-2024 End: 01-19-2025 Follow-up encounter Chayito Blanchard MD Work Phone: OB/Gynecology Start: 11-17-2024 End: 11-17-2024 Patient encounter procedure Pao Powell APRN.CNM Work Phone: OB/Gynecology Comment on above: Supervision of other high risk pregnancies, first trimester (HCC) (Primary Dx); with uncertain dates, antepartum (HCC); History of depression; Obesity in (HCC); Nausea and vomiting in (HCC); History of herpes genitalis Start: 11-17-2024 End: 11-17-2024 ambulatory PAO SHERRY Facility:[facility] Start: 10-02-2022 End: 10-02-2022 Patient encounter procedure Pao Powell APRN.CNM Work Phone: OB/Gynecology Comment on above: Encounter for screen ing for maternal depression (Primary Dx) Start: 09-19-2022 ambulatory Pao Powell APRN.CNM Work Phone: OB/Gynecology Comment on above: Ob Delivery Note Start: 09-18-2022 ambulatory Todd Montague Facility:[facility] Start: 09-18-2022 Non-patient / Non-visit Dr. Raffy Dunn Work Phone: [facility] Start: 09-18-2022 End: 09-19-2022 Evaluation and management of inpatient Pao Powell Facility:[facility] Start: 09-18-2022 End: 09-19-2022 Evaluation and management of inpatient Dr. Luann Dunn Work Phone: [facility] Start: 09-08-2022 End: 09-08-2022 Patient encounter procedure Mora Kraus MD Work Phone: OB/Gynecology Comment on above: 37 weeks gestation o f (Primary Dx) Start: 08-31-2022 End: 08-31-2022 Patient encounter procedure Nisreen Cardozo MD Work Phone: OB/Gynecology Comment on above: 36 weeks gestation o f (Primary Dx); Encounter for supervision of other normal in third trimester; History of herpes genitalis Start: 08-02-2022 End: 08-02-2022 Patient encounter procedure Pao Powell APRN.CNM Work Phone: OB/Gynecology Comment on above: 32 weeks gestation o f (Primary Dx) Single umbilical art cliff (Primary Dx); Obesity in ; 32 weeks gestation of Start: 08-02-2022 Telephone encounter Latasha carbajal APRN.CNM Work Phone: OB/Gynecology Comment on above: Orders Start: 07-18-2022 End: 07-18-2022 Patient encounter procedure Latasha Kendrick APRN.CNM Work Phone: OB/Gynecology Comment on above: 30 weeks gestation o f (Primary Dx) Start: 04-28-2022 End: 04-28-2022 Patient encounter procedure Chiquita Wagner MD Work Phone: Maternal Medicine Comment on above: Encounter for anatomic survey (Primary Dx); Obesity complicating , second trimester; 18 weeks gestation of ; Single umbilical artery 18 weeks gestation o f (Primary Dx); Single umbilical artery Start: 03-30-2022 End: 03-30-2022 Patient encounter procedure Nisreen Cardozo MD Work Phone: OB/Gynecology Comment on above: 14 weeks gestation o f (Primary Dx); Supervision of other normal , antepartum Start: 03-02-2022 End: 03-02-2022 Patient encounter procedure Latasha Kendrick APRN.CNM Work Phone: OB/Gynecology Comment on above: Encounter for screen ing for malignant neoplasm of cervix (Primary Dx); Supervision of other normal , antepartum; 10 weeks gestation of ; Cystocele, midline Start: 02-27-2022 Telephone encounter Latasha carbajal APRN.MELODIE Work Phone: OB/Gynecology Comment on above: late care Start: 02-27-2022 End: 02-27-2022 Nursing evaluation of patient and report Nurse [facility] Work Phone: OB/Gynecology Comment on above: Supervision of rené mcfarland first , antepartum (Primary Dx) Procedures Date Procedure Procedure Detail Performing Clinician Start: 02-12-2025 Us preg uterus after 1st trimest / gestation Pao Powell APRN.CNM Work Phone: Start: 12-18-2024 Antibody screen JOSE MIGUEL KENDRICK Comment on above: Order Comment: Speci men Type: BLOOD SPECIMEN Ordering Facility: [facility] Address: [address] [place] [address] Performed By: #### 5 [id number] #### [facility] CLIA [id number] [address] [place] [address] [place] [address] [place] Start: 12-18-2024 Us preg uterus after 1st trimest 07/16 gestation Pao Powell APRN.CNM Work Phone: Start: 11-17-2024 BACTERIAL VAGINOSIS NAAT Pao Powell APRN.CNM Work Phone: Start: 11-17-2024 Cytp c/v auto thin l yr prepj scr mnl rescr phys Pao Powell APRN.CNM Work Phone: Start: 11-17-2024 Iadna chlamydia trachomatis amplified probe tq Pao Powell APRN.CNM Work Phone: Start: 11-17-2024 Us uterus l imited 1/> fetuses Pao Powell APRN.CNM Work Phone: Start: 09-08-2022 URINE OB DIP B/O Mora Kraus MD Work Phone: Start: 08-31-2022 URINE OB DIP B/O Nisreen galvez MD Work Phone: Start: 08-02-2022 Us preg uterus after 1st trimest 07/16 gestation Latasha Kendrick APRN.CNM Work Phone: Start: 08-02-2022 URINE OB DIP B/O Brittanie Powell APRN.CNM Work Phone: Start: 07-18-2022 URINE OB DIP B/O Tung Kendrick APRN.CNM Work Phone: Start: 04-28-2022 URINE OB DIP B/O Nisreen galvez MD Work Phone: Start: 04-28-2022 Us preg uterus after 1st trimest 1/ gestation Latasha Kendrick APRN.CNM Work Phone: Start: 03-30-2022 URINE OB DIP B/O Nisreen galvez MD Work Phone: Plan of Treatment Date Care Activity Detail Author Start: 11-18-2027 Screening for malign ant neoplasm of cervix Cervical Cancer Screening [facility] Start: 05-21-2025 End: 05-21-2025 Patient encounter procedure 05/21/2025 2:30 PM EST Routine Office Visit OB/Gynecology [address] [place] [address] Latasha Kendrick APRN.CNM [address] [place] [address] OB OB/Gynecology Comment on above: OB Start: 05-07-2025 RSV Vaccine (1 - Ris k 1-dose series) RSV Vaccine (1 - Risk 1-dose series) [facility] Start: 05-07-2025 End: 05-07-2025 Patient encounter procedure 05/07/2025 11:15 AM EDT Routine Office Visit OB/Gynecology [address] [place] [address] Latasha Kendrick APRN.CNM [address] [place] [address] OB OB/Gynecology Comment on above: OB Start: 04-20-2025 End: 04-20-2025 Patient encounter procedure 04/20/2025 3:15 PM EDT Routine Office Visit OB/Gynecology [address] [place] [address] Latasha Kendrick APRN.CN [address] [place] [address] OB OB/Gynecology Comment on above: OB Start: 04-12-2025 End: 07-12-2025 ANEMIA REFLEX PANEL ANEMIA REFLEX PANEL Lab Routine 24 weeks gestation of (HCC) Supervision of high risk in second trimester (HCC) Obesity in (HCC) Expected: 04/12/2025 (Approximate), Expires: 07/12/2025 [facility] Comment on above: Expected: 04/12/2025 (Approximate), Expires: 07/12/2025 Start: 04-12-2025 End: 03-12-2026 GESTATIONAL GLUCOSE SCREEN, 1-HOUR, 50 GRAM, NON-FASTING GESTATIONAL GLUCOSE SCREEN, 1-HOUR, 50 GRAM, NON-FASTING Lab Routine Screening for diabetes mellitus 24 weeks gestation of (HCC) Supervision of high risk in second trimester (HCC) Obesity in (HCC) Expected: 04/12/2025 (Approximate), Expires: 03/12/2026 [facility] Work Phone: Comment on above: Expected: 04/12/2025 (Approximate), Expires: 03/12/2026 Start: 04-12-2025 End: 03-12-2026 SYPHILIS TREPONEMAL W/REFLEX SYPHILIS TREPONEMAL W/REFLEX Lab Routine 24 weeks gestation of ([facility]) Supervision of high risk in second trimester (HCC) Obesity in (HCC) Expected: 04/12/2025 (Approximate), Expires: 03/12/2026 [facility] Comment on above: Expected: 04/12/2025 (Approximate), Expires: 03/12/2026 Start: 04-09-2025 End: 04-09-2025 Patient encounter procedure 04/09/2025 2:30 PM EDT Routine Office Visit OB/Gynecology [address] [place] [address] Latasha Kendrick APRN.CN [address] [place] [address] OB OB/Gynecology Comment on above: OB Start: 04-09-2025 End: 04-09-2025 ambulatory 04/09/2025 2:15 PM EDT Results Only Frank Smiley [facility] [address] [place] [address] Glucose Lab Pesotum Walworth [facility] Comment on above: Glucose Lab Start: 04-02-2025 End: 04-02-2025 ambulatory 04/02/2025 2:15 PM EDT Results Only Frank Smiley [facility] [address] [place] [address] Glucose Lab Frank Walworth [facility] Comment on above: Glucose Lab Start: 03-16-2025 Influenza vaccination C [facility] Start: 03-12-2025 End: 03-12-2025 Patient encounter procedure 03/12/2025 2:30 PM EDT Routine Office Visit OB/Gynecology [address] [place] [address] Latasha Kendrick APRN.CNM [address] [place] [address] OB OB/Gynecology Comment on above: OB Start: 03-02-2025 PAP TESTING PAP TESTING [facility] Start: 02-12-2025 End: 02-12-2025 Patient encounter procedure Maternal Medicine Comment on above: Anatomy Anatomy/OB Start: 01-15-2025 End: 01-15-2025 Patient encounter procedure 01/15/2025 2:30 PM EDT Routine Office Visit OB/Gynecology [address] [place] [address] Latasha Kendrick APRN.CNM [address] [place] [address] OB OB/Gynecology Comment on above: OB Start: 12-18-2024 End: 12-18-2024 Patient encounter procedure Maternal Medicine Comment on above: nuchal OB Start: 11-17-2024 End: 02-16-2025 ANEMIA REFLEX PANEL ANEMIA REFLEX PANEL Lab Routine with uncertain dates, antepartum (HCC) Expected: 11/17/2024, Expires: 02/16/2025 [facility] Work Phone: Comment on above: Expected: 11/17/2024 , Expires: 02/16/2025 Start: 11-17-2024 End: 02-16-2025 Hemoglobin A1c in Blood HEMOGLOBIN A1C Lab Routine with uncertain dates, antepartum (HCC) Expected: 11/17/2024, Expires: 02/16/2025 [facility] Comment on above: Expected: 11/17/2024 , Expires: 02/16/2025 Start: 11-17-2024 End: 02-16-2025 Hepatitis B virus surface Ag [Presence] in Serum HEPATITIS B SURFACE ANTIGEN Lab Routine with uncertain dates, antepartum (HCC) Expected: 11/17/2024, Expires: 02/16/2025 [facility] Comment on above: Expected: 11/17/2024 , Expires: 02/16/2025 Start: 11-17-2024 End: 02-16-2025 Hepatitis C virus Ab [Presence] in Serum HEPATITIS C ANTIBODY IA WITH CONFIRMATION Lab Routine with uncertain dates, antepartum (HCC) Expected: 11/17/2024, Expires: 02/16/2025 [facility] Comment on above: Expected: 11/17/2024 , Expires: 02/16/2025 Start: 11-17-2024 End: 02-16-2025 HIV 1+2 Ab [Presence] in Serum or Plasma by Immunoassay HIV 1/2 COMBO WITH REFLEX TO DIFFERENTIATION Lab Routine with uncertain dates, antepartum (HCC) Expected: 11/17/2024, Expires: 02/16/2025 [facility] Comment on above: Expected: 11/17/2024 , Expires: 02/16/2025 Start: 11-17-2024 End: 11-17-2025 OBSTETRIC ULTRASOUND WHI OBSTETRIC ULTRASOUND WHI Anc Imaging Routine with uncertain dates, antepartum (HCC) Expected: 11/17/2024, Expires: 11/17/2025 [facility] Comment on above: Expected: 11/17/2024 , Expires: 11/17/2025 Start: 11-17-2024 End: 02-16-2025 RUBELLA IGG ANTIBODY RUBELLA IGG ANTIBODY Lab Routine with uncertain dates, antepartum (HCC) Expected: 11/17/2024, Expires: 02/16/2025 [facility] Comment on above: Expected: 11/17/2024 , Expires: 02/16/2025 Start: 11-17-2024 End: 02-16-2025 SYPHILIS TREPONEMAL W/REFLEX SYPHILIS TREPONEMAL W/REFLEX Lab Routine with uncertain dates, antepartum (HCC) Expected: 11/17/2024, Expires: 02/16/2025 [facility] Comment on above: Expected: 11/17/2024 , Expires: 02/16/2025 Start: 11-17-2024 End: 02-16-2025 TYPE + SCREEN TYPE + SCREEN Blood Bank Routine with uncertain dates, antepartum (HCC) Expected: 11/17/2024, Expires: 02/16/2025 [facility] Comment on above: Expected: 11/17/2024 , Expires: 02/16/2025 Start: 03-16-2024 Covid-19 Vaccine ( season) Covid-19 Vaccine ( season) [facility] Start: 03-02-2023 CHLAMYDIA SCREENING (18-24) CHLAMYDIA SCREENING (18-24) [facility] Start: 03-02-2023 GC (GONORRHEA) SCREE AKUA (18-24) GC (GONORRHEA) SCREENING (18-24) [facility] Start: 09-19-2022 Patient discharge [facility] Start: 09-19-2022 Consultation [facility] Start: 09-18-2022 Administration of medication [facility] Start: 09-18-2022 Application of ice collar, cap or bag [facility] Start: 09-18-2022 Catheterization of vein [facility] Start: 09-18-2022 Introduction of urin marva catheter [facility] Start: 09-18-2022 Measuring intake and output [facility] Start: 09-18-2022 Notification of physician [facility] Start: 09-18-2022 Procedure discontinued [facility] Start: 09-18-2022 Provision of activit y privileges [facility] Start: 09-18-2022 Vital signs measurements [facility] Start: 09-18-2022 [facility] Start: 09-18-2022 Admission procedure [facility] Start: 07-16-2022 DEPRESSION ASSESSMENT DEPRESSION ASS ESSMENT [facility] Start: 03-16-2022 Influenza vaccination INFLUENZA (#1) [facility] Start: 03-02-2022 End: 05-02-2022 CBC panel - Blood by Automated count CBC Lab Routine Supervision of other normal , antepartum Expected: 03/02/2022, Expires: 05/02/2022 [facility] Work Phone: Comment on above: Expected: 03/02/2022 , Expires: 05/02/2022 Start: 03-02-2022 End: 05-02-2022 Hepatitis B virus surface Ab [Presence] in Serum by Immunoassay HEP B SURF AG SCRN Lab Routine Supervision of other normal , antepartum Expected: 03/02/2022, Expires: 05/02/2022 [facility] Work Phone: Comment on above: Expected: 03/02/2022 , Expires: 05/02/2022 Start: 03-02-2022 End: 05-02-2022 Hepatitis C virus Ab [Presence] in Serum HEP C AB IA W/CONF SCRN Lab Routine Supervision of other normal , antepartum Expected: 03/02/2022, Expires: 05/02/2022 [facility] Work Phone: Comment on above: Expected: 03/02/2022 , Expires: 05/02/2022 Start: 03-02-2022 End: 05-02-2022 HIV 1+2 Ab [Presence] in Serum or Plasma by Immunoassay HIV 1 2 COMBO(AG/AB),WITH REFLEX TO DIFFERENTIATION Lab Routine Supervision of other normal , antepartum Expected: 03/02/2022, Expires: 05/02/2022 [facility] Work Phone: Comment on above: Expected: 03/02/2022 , Expires: 05/02/2022 Start: 03-02-2022 End: 05-02-2022 RUBELLA IGG AB RUBELLA IGG AB Lab Routine Supervision of other normal , antepartum Expected: 03/02/2022, Expires: 05/02/2022 [facility] Work Phone: Comment on above: Expected: 03/02/2022 , Expires: 05/02/2022 Start: 03-02-2022 End: 05-02-2022 SYPHILIS TOTAL W/REFLEX SYPHILIS TOTAL W/REFLEX Lab Routine Supervision of other normal , antepartum Expected: 03/02/2022, Expires: 05/02/2022 [facility] Work Phone: Comment on above: Expected: 03/02/2022 , Expires: 05/02/2022 Start: 03-02-2022 End: 05-02-2022 TYPE + SCREEN TYPE + SCREEN Blood Bank Routine Supervision of other normal , antepartum Expected: 03/02/2022, Expires: 05/02/2022 [facility] Work Phone: Comment on above: Expected: 03/02/2022 , Expires: 05/02/2022 Start: 07-16-2021 DEPRESSION ASSESSMENT DEPRESSION ASS ESSMENT [facility] Start: 11-01-2019 CHLAMYDIA SCREENING (18-24) CHLAMYDIA SCREENING (18-24) [facility] Start: 11-01-2019 GC (GONORRHEA) SCREE AKUA (18-24) GC (GONORRHEA) SCREENING (18-24) [facility] Start: 2019 PAP TESTING PAP TESTING [facility] Start: 2017 Hepatitis B Vaccine (1 of 3 - 19+ 3-dose series) Hepatitis B Vaccine (1 of 3 - 19+ 3-dose series) [facility] Start: 2017 Urine microalbumin profile [facility] Start: 2016 Anxiety Screening Anxiety Screening [facility] Start: 2016 Depression Screening Depression Scre ening [facility] Start: 2016 HEPATITIS C SCREENING HEPATITIS C SC STEPHANI [facility] Start: 2013 HPV Vaccine (1 - 3-d ose series) HPV Vaccine (1 - 3-dose series) [facility] Start: 2012 PEDS TO ADULT TRANSI TION ANNUAL ASSESSMENT PEDS TO ADULT TRANSITION ANNUAL ASSESSMENT [facility] Start: 2010 Adult depression screening assessment DEPRESSION SCREENING [facility] Start: 2010 PEDS TO ADULT TRANSI TION INITIAL DISCUSSION PEDS TO ADULT TRANSITION INITIAL DISCUSSION [facility] Start: 2009 HPV VACCINE (1 - 2-d ose series) HPV VACCINE (1 - 2-dose series) [facility] Start: 03-03-1999 COVID-19 VACCINE (#1) COVID-19 VACCI NE (#1) [facility] Start: 1998 HEPATITIS B (1 of 3 - 3-dose series) HEPATITIS B (1 of 3 - 3-dose series) [facility] Bacteria identified in Urine by Culture URINE CULTURE Microbiology Routine Supervision of other normal , antepartum 03/02/2022 1:56 PM EDT [facility] Work Phone: Chlamydia trachomatis+Neisseria gonorrhoeae DNA [Presence] in Unspecified specimen by SUSIE with probe detection GC/CHLAMYDIA DNA DET Lab Routine Supervision of other normal , antepartum 03/02/2022 1:56 PM EDT [facility] Work Phone: OBSTETRIC ULTRASOUND WHI OBSTETR IC ULTRASOUND WHI Anc Imaging Routine Supervision of other normal , antepartum Ordered: 03/02/2022 [facility] Work Phone: Comment on above: Ordered: 03/02/2022 PAP FLUID CERVICAL SCREENING PAP FLUID CERVICAL SCREENING Lab Routine Encounter for screening for malignant neoplasm of cervix 03/02/2022 1:56 PM EDT [facility] Work Phone: Patient referral [facility] Work Phone: ROUTINE, GR OUP B STREP PCR ROUTINE, GROUP B STREP PCR Microbiology Routine 36 weeks gestation of Encounter for supervision of other normal in third trimester 08/31/2022 3:35 PM EST [facility] Work Phone: [facility] Payers Date Payer Category Payer [employer] Blue [employer] BLUE ACCE SS PPO [id number] 2024 Unknown [id number] 2022 Self-pay [id number] 2022 Unknown [id number] 2021 Unknown [id number] Private Health Insurance [facility] [id number] Unknown [id number] Unknown [id number] Social History Date Type Detail Facility Start: 02-27-2022 End: 11-14-2024 Tobacco smoking status FLIS Ex-smoker [facility] Work Phone: Start: 04-17-2013 End: 04-17-2016 History of tobacco use Current smoker [facility] Work Phone: Start: 04-17-2013 End: 04-17-2016 History of tobacco use Cigarette Smoker [facility] Work Phone: Start: 02-27-2022 End: 11-14-2024 Tobacco use and exposure Smokeless tobacco non-user [facility] Work Phone: Start: 02-27-2022 End: 03-12-2025 Alcohol intake Ex-drinker (finding) [facility] Start: 02-27-2022 History SDOH Alcohol Comment occasionally [facility] Start: 02-27-2022 Education 8 [facility] Start: 12-31-2021 [facility] Start: 2000 Sex Assigned At Not on file [facility] Start: 02-17-2022 End: 03-30-2022 Exposure to SARS-CoV-2 (event) Not sure [facility] Work Phone: Start: 09-18-2022 Tobacco smoking stat us [facility] Unknown if ever smoked [facility] Start: 1998 Sex Assigned At Female W [facility] Start: 11-17-2024 End: 03-12-2025 History of Social function [facility] Start: 11-17-2024 End: 03-12-2025 Tobacco use panel [facility] Start: 04-09-2019 National Score (1-10 0), lower number is lower risk 61 [facility] Start: 11-14-2024 Gender identity Identifies as female gender (finding) [facility] Start: 11-14-2024 Sexual orientation Heterosexual (rosa lee) [facility] Goals Date Patient Goal Desired Activity /State Personal health goal Clinical Notes 04-17-2019 to 03-12-2025 Quick Notes - Latasha Kendrick APRN.[facility] - 03/12/2025 2:35 PM EDTPrenatal Quick Notes - Latasha Kendrick APRN.[facility] - 03/12/2025 2:35 PM EDTPatient InstructionsPatient Instructions Note Date & Type Note Facility 03-12-2025 Progress note Formatting of t his note might be different from the original. S: Mabel Dominguez is a 24 year old female who presents at 24 weeks gestation for a routine visit. Positive movements. Denies headache, visual changes, chest pain, shortness of breath, vaginal bleeding, leakage of fluid, or dysuria. C/O increased anxiety over upcoming labor and delivery. Fear of hemorrhage after delivery, an emergent section and/or something happening to her. Stated she feels this type of anxiety usually closer to delivery. O: See flow sheet Gen: No apparent distress Abd: Gravid, nontender ASSESSMENT/PLAN: 1. Screening for diabetes mellitus 2. 24 weeks gestation of 3. Supervision of high risk in second trimester 4. Obesity in 5. Anxiety about health - Purchased The Fresh Test for GCT - Discussed increasing anxiety and thoughts about upcoming labor and delivery. No history of counseling or medications- may be interested in both in the future. - Denies any depression - Pregravid BMI 32- no testing needed - RTO 4 weeks or sooner if needed Latasha Kendrick APRN.CNM [facility] 03-12-2025 Miscellaneous Notes Formattin g of this note might be different from the original. S: Mabel Dominguez is a 24 year old female who presents at 24 weeks gestation for a routine visit. Positive movements. Denies headache, visual changes, chest pain, shortness of breath, vaginal bleeding, leakage of fluid, or dysuria. C/O increased anxiety over upcoming labor and delivery. Fear of hemorrhage after delivery, an emergent section and/or something happening to her. Stated she feels this type of anxiety usually closer to delivery. O: See flow sheet Gen: No apparent distress Abd: Gravid, nontender ASSESSMENT/PLAN: 1. Screening for diabetes mellitus 2. 24 weeks gestation of 3. Supervision of high risk in second trimester 4. Obesity in 5. Anxiety about health - Purchased The Fresh Test for GCT - Discussed increasing anxiety and thoughts about upcoming labor and delivery. No history of counseling or medications- may be interested in both in the future. - Denies any depression - Pregravid BMI 32- no testing needed - RTO 4 weeks or sooner if needed Latasha Kendrick APRN.CNM documented in this encounter [facility] 03-12-2025 Instructions Pura Cantu MA - 03/12/2025 2:28 PM EDT SEQUENTIAL SCREENINGS The [facility] offers sequential screenings for women who are interested in screenings for chromosomal abnormalities and certain defects during a . The sequential screen combines ultrasound and blood tests to determine the risk of chromosomal abnormalities, including Down's Syndrome (Trisomy 21) and Trisomy 18, as well as open neural tube defects including spina bifida. Ultrasound examination is performed between 11 weeks and 13 weeks gestational age. Blood tests are drawn after the ultrasound and again later in the between 15 and 21 weeks gestational age. Please let your physician know if you are interested in this testing. It will require an appointment with our oral surgery technician. This is not an ultrasound performed by a physician in our office during a routine visit. SIGNS AND SYMPTOMS OF LABOR 1. Contractions every 10 minutes or more often 2. Clear, pink, or brownish fluid (water) leaking from vagina 3. Feeling that baby is pushing down, pressure 4. Low, dull backache 5. Cramps that feel like a period 6. Cramps with or without diarrhea If you notice any of the above symptoms, contact our office at [phone] and ask to speak with a nurse. After hours, you can call doctors registry at [phone] OR call [facility] at [phone] and ask to have the doctor senior research consultant paged. If you consider this an emergency, dial 5-5-9 or go to your nearest emergency department. NEED HELP? Are you dealing with a violent or abusive relationship? Are you a victim of rape or sexual assult? Call [facility] ([place]) 24 hour Crisis Hotline: 768.327.9221 or 527-171-4698. MANUAL Your Guide to a Healthy manual is now on-line. Visit [email or web address] to download your free copy documented in this encounter [facility] 02-12-2025 Progress note Formatting of t his note might be different from the original. FLORS: Mabel Dominguez is a 24 year old female who presents at 20w0d with ROLDAN:07/02/2025, by Last Menstrual Period for a routine visit. Denies headache, visual changes, chest pain, shortness of breath, vaginal bleeding, leakage of fluid, or dysuria. Feeling well, no complaints. O: See flow sheet Gen: No apparent distress Abd: Gravid, nontender ASSESSMENT/PLAN: 1. Supervision of high risk in second trimester -Continue PNV -Declined ASA 2. Obesity in -Pregravid BMI 32, no testing 3. 20 weeks gestation of -Anatomy US today PTL precautions reviewed and when to call RTO in 4 weeks Pao Powell APRN.CNM [facility] 02-12-2025 Miscellaneous Notes Formattin g of this note might be different from the original. TRACE-S: Mabel Dominguez is a 24 year old female who presents at 20w0d with ROLDAN:07/02/2025, by Last Menstrual Period for a routine visit. Denies headache, visual changes, chest pain, shortness of breath, vaginal bleeding, leakage of fluid, or dysuria. Feeling well, no complaints. O: See flow sheet Gen: No apparent distress Abd: Gravid, nontender ASSESSMENT/PLAN: 1. Supervision of high risk in second trimester -Continue PNV -Declined ASA 2. Obesity in -Pregravid BMI 32, no testing 3. 20 weeks gestation of -Anatomy US today PTL precautions reviewed and when to call RTO in 4 weeks Pao Powell APRN.CNM documented in this encounter [facility] 02-12-2025 Instructions Gracie Jeong MA - 02/12/2025 1:20 PM EDT SEQUENTIAL SCREENINGS The [facility] offers sequential screenings for women who are interested in screenings for chromosomal abnormalities and certain defects during a . The sequential screen combines ultrasound and blood tests to determine the risk of chromosomal abnormalities, including Down's Syndrome (Trisomy 21) and Trisomy 18, as well as open neural tube defects including spina bifida. Ultrasound examination is performed between 11 weeks and 13 weeks gestational age. Blood tests are drawn after the ultrasound and again later in the between 15 and 21 weeks gestational age. Please let your physician know if you are interested in this testing. It will require an appointment with our oral surgery technician. This is not an ultrasound performed by a physician in our office during a routine visit. SIGNS AND SYMPTOMS OF LABOR 1. Contractions every 10 minutes or more often 2. Clear, pink, or brownish fluid (water) leaking from vagina 3. Feeling that baby is pushing down, pressure 4. Low, dull backache 5. Cramps that feel like a period 6. Cramps with or without diarrhea If you notice any of the above symptoms, contact our office at [phone] and ask to speak with a nurse. After hours, you can call doctors registry at [phone] OR call [facility] at [phone] and ask to have the doctor senior research consultant paged. If you consider this an emergency, dial 9-2-1 or go to your nearest emergency department. NEED HELP? Are you dealing with a violent or abusive relationship? Are you a victim of rape or sexual assult? Call [facility] ([place]) 24 hour Crisis Hotline: 660.925.3947 or 898-080-8169. MANUAL Your Guide to a Healthy manual is now on-line. Visit [email or web address] to download your free copy documented in this encounter [facility] 01-15-2025 Progress note Formatting of t his note might be different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 to urinate, Inability to have a bowel movement,Using more than 1 pad per hour, Shortness of breath, Dizziness, Fainting spells,Chest pain, Increased palpitations (irregular heartbeat), Calf discomfort and Uncontrolled pain Suture Line Care: Avoid Pulling/Pushing and Avoid Pinching/Bending Follow Up Care Please Follow Up With: Yvonne Barone MD When: Follow up in 2 and 6 weeks for visits. Test Results: Test results from this visit will be discussed in further detail at your follow-up appointment, if applicable. Discharge Plan Admission Admit Date/Time: 09/18/22 07:05 Primary Reason for Your Visit: Vaginal delivery Attending Provider: Pao Powell Primary Care Provider: Luann Dunn Discharge Orders/Prescriptions Prescriptions: New acetaminophen 500 mg Tablet 1,000 mg PO Q6H PRN PRN (Reason: Pain 1-10 Or Fever) Qty: 0 0RF ibuprofen 600 mg Tablet 600 mg PO Q6H PRN PRN (Reason: Pain Score 1-3) Qty: 0 0RF Continued cetirizine 10 MG tablet 1 tab PO PRN PRN (Reason: allergies) Label Comments: TAKE 1 TABLET BY MOUTH EVERY DAY valacyclovir 1,000 MG tablet 1 tab PO DAILY montelukast 10 MG tablet 10 mg PO PRN PRN (Reason: allergies) vit,[id number] 1 TABLET tablet 1 tab PO DAILY magnesium citrate 100 mg Capsule 400 mg PO PRN PRN (Reason: Constipation) Referrals / Follow Up: Luann Dunn MD [Primary Care Provider] - Disposition Disposition (needs filled in before D/C Order can be placed): Home, Self Care 09/19/22 0858<Electronically signed by Yvonne Barone MD>Yvonne Barone MD CC: Dr. Luann Dunn MD ~ Signed [facility] Work Phone: [phone]) 922-451303-07-[address] Barone [facility] September 19, 2022 8:55am Note Date/Time September 19, 2022 8:55 am [facility] Medical Records Department [address] [place] [id number] Progress Note - OBGYN 09/19/22 0855 MR#: [id number] Acct: [id number] Name: MABEL DOMINGUEZ Rep #:[id number] : 2000 22 From: Yvonne Barone MD PCP: Dr. Luann Dunn MD Status:ADM IN Location: [id number] Subjective Subjective Denies complaints Objective Data Objective Data Vital Signs: Vital Signs Temp Pulse Resp BP Pulse Ox O2 Del Method 97.8 F 108 H 16 120/66 97 Room Air 09/19/22 08:27 09/19/22 08:27 09/19/22 08:27 09/19/22 08:27 09/19/22 08:27 09/19/22 08:27 Oxygen Delivery Method Room Air Weight: 194 lb 3.2 oz Body Mass Index (BMI) 35.5 Intake & Output: Intake and Output for Last 24 Hours 09/17/22 09/18/22 09/19/22 23:59 23:59 23:59 Intake Total 1982.33 / 1982.33 Output Total 1375 / 1375 Balance 608.33 / 608.33 Lab / Micro Data Result Diagrams: 09/19/22 06:25 09/18/22 07:47 Labs: Laboratory Results - last 24 hr 09/18/22 07:47: Blood Type A POSITIVE, Antibody Screen NEGATIVE 09/18/22 07:47: Syphilis Total Ab Non-reactive 09/18/22 07:47: Sodium 141, Potassium 3.8, Chloride 110 H, Carbon Dioxide 18.0 L, Anion Gap 13, BUN 5 L, Creatinine 0.58, Estim Creat Clear Calc 118.29, Est GFR(MDRD) Af Amer 163, Est GFR (MDRD) Non-Af 135, BUN/Creatinine Ratio 8.6 L, Glucose 154 H, Calcium 8.9, Total Bilirubin 0.30, AST 28, ALT 14, Alkaline Phosphatase 168 H, Total Protein 6.4, Albumin 2.7 L, Globulin 3.7, Albumin/Globulin Ratio 0.7 L 09/19/22 06:25: WBC 15.3 H, RBC 3.64 L, Hgb 11.0 L, Hct 33.9 L, MCV 93.1, MCH 30.2, MCHC 32.4, RDW Std Deviation 49.7 H, RDW Coeff of Ajay 14.5, Plt Count 232,MPV 10.4 Radiography Diagnostic Testing: Radiology Impression Echocardiogram 09/18/22 10:02 Interpretation Summary Normal LV size. Left ventricular systolic function is normal. The estimated ejection fraction is 60 %. Structurally normal valves. Ordering Physician: Pao Powell Referring Physician: Pao Powell Performed By: Ching Haq RCS Physical Exam Const alert, oriented x3 and no apparent distress HEENT normocephalic GI soft to palpation, non-tender and non-distended GI Narrative: fundus firm, mid & below umbilicus Extremity normal to inspection and no calf tenderness Assessment & Plan (1) Vaginal delivery: COMMENT: PPD#1 PLAN: Routine care D/c to home per patient request 09/19/22 0855 <Electronically signed by Yvonne Barone MD> Cosigner Signature (if applicable): CC: ~ Signed [facility] Work Phone: [phone] 335-951303-07-2023 History of Present illness Narrative* Suzette Carbajal RN - 09/19/2022 8:25 AM EST Patient delivered via by Nevin on 09/18/22 at [facility]. See OB history. Suzette Carbajal RN documented in this encounterOhiohealth [facility]03-06-2023 History and physical note Author Pao Powell [facility] September 18, 2022 6:04pm Note Date/Time September 18, 2022 8:57 am [facility] Medical Records Department [address] [place] [address] H&P Exam - MARKETING PROFESSIONAL 09/18/22 0856 MR#: [id number] Acct: [id number] Name: MABEL DOMINGUEZ Rep #:[id number] : 2000 22 From: Pao TORRES PCP: Dr. Luann Dunn MD Status:ADM IN Location: SC237-8 HPI - General General Date of Admission: 09/18/22 HPI Narrative MABEL DOMINGUEZ, is a 22 F who presents at 39w2d with induction of labor. 2vessel umbilical cord. [facility] Medical History (Updated 09/18/22 @ 18:02 by Pao Powell CNM) Anxiety Former smoker History of depression History of herpes genitalis depression Home Medications cetirizine 10 mg tablet 1 tab PO PRN PRN allergies 07/04/19 [History Last Taken Unknown] montelukast 10 mg tablet 10 mg PO PRN PRN allergies 07/04/19 [History Last Taken Unknown] vits,calcium no.78-iron fumarate-folic acid 29 mg-1 mg tablet 1 tab PO DAILY 07/04/19 [History Last Taken 09/17/22] valacyclovir 1 gram tablet 1 tab PO DAILY hx genital herpes 07/04/19 [History Last Taken 09/18/22] magnesium citrate 100 mg capsule 400 mg PO PRN PRN Constipation 09/18/22 [History Last Taken 09/17/22] Allergy/AdvReac Type Severity Reaction Status Date / Time Penicillins [PCN] Allergy Unknown Verified 07/04/19 07:33 Social History Smoking Status: Former smoker History Elective abortions Hx Para 1 Spontaneous abortions Hx # Term Pregnancies Ectopic pregnancies Hx # Pregnancies Multiple births # of living children NST FHR Rate Baby A Baseline: 155 Variability:: Moderate Accelerations:: 15 x 15 Decelerations:: Variable FHR Category:: Category II Uterine Activity:: None ROS Constitutional Constitutional: Reports systems reviewed and no addt'l complaints, except as documented; Denies headache(s) Eyes Eyes: Denies acute decrease in peripheral vision, blurry vision or change in vision ENT HEENT: Reports systems reviewed and no addt'l complaints, except as documented Cardiovascular Cardiovascular: Denies chest pain or dizziness Respiratory/Chest Respiratory/Chest: Denies cough, dyspnea, dyspnea on exertion, shortness of breath at rest or shortness of breath with exertion Gastrointestinal Gastrointestinal: Denies abdominal pain, diarrhea, nausea or vomiting Genitourinary Genitourinary: Denies abdominal discomfort Musculoskeletal Musculoskeletal: Denies limited range of motion Integumentary Integumentary: Reports systems reviewed and no addt'l complaints, except as documented Neurologic Neurologic: Reports systems reviewed and no addt'l complaints, except as documented Psychiatric Psychiatric: Reports systems reviewed and no addt'l complaints, except as documented Endocrine Endocrinology: Reports systems reviewed and no addt'l complaints, except as documented Hematologic/Lymphatic Hematologic/Lymphatic: Reports systems reviewed and no addt'l complaints, except as documented Allergic/Immunologic Allergic/Immunologic: Reports systems reviewed and no addt'l complaints, except as documented Vital Signs Vital Signs Vital Signs: 09/18/22 07:56 09/18/22 07:56 09/18/22 07:57 Temperature 97.9 F Pulse Rate 135 H Blood Pressure 119/69 BP Systolic 119 BP Diastolic 69 Pulse Ox 09/18/22 07:57 09/18/22 08:06 09/18/22 08:06 Temperature Pulse Rate 133 H Blood Pressure BP Systolic BP Diastolic Pulse Ox 98 96 09/18/22 08:11 09/18/22 08:11 09/18/22 08:16 Temperature Pulse Rate 133 H 129 H Blood Pressure BP Systolic BP Diastolic Pulse Ox 96 09/18/22 08:16 09/18/22 08:21 09/18/22 08:21 Temperature Pulse Rate 127 H Blood Pressure BP Systolic BP Diastolic Pulse Ox 97 96 09/18/22 08:26 09/18/22 08:26 09/18/22 08:31 Temperature Pulse Rate 129 H 128 H Blood Pressure BP Systolic BP Diastolic Pulse Ox 97 09/18/22 08:31 09/18/22 08:30 09/18/22 08:36 Temperature 97.9 F Pulse Rate 135 H Blood Pressure BP Systolic BP Diastolic Pulse Ox 98 09/18/22 08:36 09/18/22 08:41 09/18/22 08:41 Temperature Pulse Rate 139 H Blood Pressure BP Systolic BP Diastolic Pulse Ox 97 99 09/18/22 08:46 09/18/22 08:46 09/18/22 08:51 Temperature Pulse Rate 136 H Blood Pressure BP Systolic BP Diastolic Pulse Ox 98 98 09/18/22 08:51 Temperature Pulse Rate 126 H Blood Pressure BP Systolic BP Diastolic Pulse Ox Weight Weight: 194 lb 3.2 oz Body Mass Index (BMI) 35.5 Physical Exam Const alert and oriented x3 General Appearance: cooperative Orientation / Consciousness: awake, oriented to person, oriented to place and oriented to time Exam Limitations: no limitations HEENT normocephalic Head and Scalp: normal to inspection, normocephalic and atraumatic Face and Sinus: normal facial exam Eyes General Eye: normal appearance of both eyes Neck full ROM Chest Chest: symmetrical chest wall rise Resp normal respiratory effort and normal air movement Auscultation: clear to auscultation bilaterally Cardio regular rate, regular rhythm, S1 normal heart sound, S2 normal heart sound, no murmurs, no rub, no gallops and no clicks GI normal to inspection, nondistended, normoactive bowel sounds and non-tender appearance of the vagina normal Bladder / Kidney Exam: no CVA tenderness Manual OB Exam: estimated gestational size appropriate, presentation cephalic, dilated 3, effaced 50 and station -2 Back/Spine normal ROM Extremity normal to inspection and full ROM Skin no rashes or lesions noted Neuro oriented x3, CN's II-XII intact bilaterally and moves all extremities Sensorium / Orientation: awake, alert and oriented to person Motor Exam: clonus absent Deep Tendon Reflexes: Rt Patellar (L4): 2+ and Lt Patellar (L4): 2+ Labs Labs Labs: Blood Type A POSITIVE Antibody Screen NEGATIVE Hct 36.9 % (37-47) L Hgb 12.2 g/dL (12.0-15.0) Syphilis Total Ab Non-reactive Rhogam given: No HBsAG negative Hep C negative GBS negative Did not complete 1hr GCT, 2 weeks of Blood sugar log normal Assessment & Plan (1) Elective induction of labor planned: (2) Two vessel umbilical cord: (3) 39 weeks gestation of : PLAN: Plan 1) Admit to labor and delivery 2) Pitocin for active management 3) Continuous monitoring 4) Epidural for pain management 5) GBS negative 6) [facility] physician and notified of patient status 7) HSV prophylaxis 09/18/221803 <Electronically signed by Pao Powell CNM> Cosigner Signature (if applicable): CC: MELODIE Powell; Dr. Luann Dunn MD~ Signed [facility] Work Phone: 1(648) 987-475403-06-2023 Procedure [facility] 09-08-2022 Miscellaneous Notes* Quick Notes - Mora Kraus MD - 09/08/2022 4:19 PM EST DM-Pt doing well. Denies vaginal Bleeding, Leaking fluid, or regular Contractions. Pt reports good movement Physical Exam: Gen: female in no apparent distress Abd: soft, Gravid. Non tender to palpation. See flow sheet A/P: @ 37.6 weeks 1) Continue acylcovir 2) IOL requested set up for 39.2 weeks 3) Growth us reviewed 4) RTO as scheduled Mora Rodriguez MD documented in this encounterOhio[facility]02-24-2023 Instructions* Patient Instructions* Gracie Jeong Ma - 09/08/2022 3:53 PM EST SEQUENTIAL SCREENINGS The [facility] offers sequential screenings for women who are interested in screenings for chromosomal abnormalities and certain defects during a . The sequential screen combinesultrasound and blood tests to determine the risk of chromosomal abnormalities, including Down's Syndrome (Trisomy 21) and Trisomy 18, as well as open neural tube defects including spina bifida. Ultrasound examination is performed between 11 weeks and 13 weeks gestational age. Blood tests are drawn after the ultrasound and again later in the between 15 and 21 weeks gestational age. Please let your physician know if you are interested in this testing. It will require an appointment withour oral surgery technician. This is not an ultrasound performed by a physician in our office during a routine visit. SIGNS AND SYMPTOMS OF LABOR 1. Contractions every 10 minutes or more often 2. Clear, pink, or brownish fluid (water) leaking from vagina 3. Feeling that baby is pushing down, pressure 4. Low, dull backache 5. Cramps that feel like a period 6. Cramps with or without diarrhea If you notice any of the above symptoms, contact our office at [phone] and ask to speak with anurse. After hours, you can call doctors registry at [phone] OR call [facility] at [phone] ask to have the doctor senior research consultant paged. If you consider this an emergency, dial 9-1- or go to your nearest emergency department. NEED HELP? Are you dealing with a violent or abusive relationship? Are you a victim of rape or sexual assult? Call [facility] ([place]) 24 hour Crisis Hotline: 388.672.9783 or 080-078-3853. MANUAL Your Guide to a Healthy manual is now on-line. Visit [email or web address] to download your free copy documented in this encounterOhiohealth [place] [facility]02-16-2023 Miscellaneous Notes* Quick Notes - Nisreen Cardozo MD - 08/31/2022 3:29 PM EST SW- pt doing well. No ctx, vb, lof. Good FM PE: Gen- NAD, well appearing Abd- Soft, gravid, NT Ext- No edema See flowsheet A/p 36 wk gestation - GBS today - Growth US today and final report pending - Pt desires elective 39-40 wk IOL - Start Acyclovir - Weekly visits Nisreen Cardozo DO documented in this encounterOhiohealth [place] [facility] Hospital02-16-2023 Instructions* Patient Instructions* Pura Cantu MA - 08/31/2022 2:23 PM EST SEQUENTIAL SCREENINGS The [facility] offers sequential screenings for women who are interested in screenings for chromosomal abnormalities and certain defects during a . The sequential screen combinesultrasound and blood tests to determine the risk of chromosomal abnormalities, including Down's Syndrome (Trisomy 21) and Trisomy 18, as well as open neural tube defects including spina bifida. Ultrasound examination is performed between 11 weeks and 13 weeks gestational age. Blood tests are drawn after the ultrasound and again later in the between 15 and 21 weeks gestational age. Please let your physician know if you are interested in this testing. It will require an appointment withour oral surgery technician. This is not an ultrasound performed by a physician in our office during a routine visit. SIGNS AND SYMPTOMS OF LABOR 1. Contractions every 10 minutes or more often 2. Clear, pink, or brownish fluid (water) leaking from vagina 3. Feeling that baby is pushing down, pressure 4. Low, dull backache 5. Cramps that feel like a period 6. Cramps with or without diarrhea If you notice any of the above symptoms, contact our office at [phone] and ask to speak with anurse. After hours, you can call doctors registry at [phone] OR call [facility] at [phone] ask to have the doctor senior research consultant paged. If you consider this an emergency, dial 9-8-7 or go to your nearest emergency department. NEED HELP? Are you dealing with a violent or abusive relationship? Are you a victim of rape or sexual assult? Call [facility] ([facility] 24 hour Crisis Hotline: 929.929.1553 or 774-471-7891. MANUAL Your Guide to a Healthy manual is now on-line. Visit [email or web address] to download your free copy documented in this encounterOhiohealth [place] [facility]01-18-2023 Miscellaneous Notes* Quick Notes - Pao Powell APRN.CNM - 08/02/2022 3:03 PM EST SEPIDEH: Mabel Dominguez is a 21 year old female who presents at 32w4d with ROLDAN: 09/23/2022, by Last Menstrual Period for a routine visit. Good FM. Denies headache, visual changes, chest pain, shortness of breath, vaginal bleeding, leakage of fluid, or dysuria. Feeling well, no complaints. Has not been checking blood sugars, checked them a few times. Did not want to do glucola due to ingredients O: See flow sheet Gen: No apparent distress Abd: Gravid, nontender ASSESSMENT: 1. 32 weeks gestation of P: 1) PTL precautions reviewed and when to call 2) RTO in 2 weeks 3) Growth US every 4 weeks for single umbilical artery 4) HSV prophylaxis at 36 weeks 5) Reviewed with patient indepth importance of detection of GDM. Discussed 2 week testing is not validated but only option if patient chooses not complete testing. Discussed testing for 2 weeks FBS and 2hr after each meal. To bring to next visit. Reviewed hospital policy of testing after delivery. Discussed risk of undiagnosed GDM to baby and voiced understanding. Informed refusal. Pao Powell APRN.CNM I spent 20 minutes in the visit, with more than 50% of the total [id number] time of the visit in counseling / coordination of care. documented in this encounterOhiohealth [place] [facility] Hospital01-18-2023 Instructions* Patient Instructions* Pao Powell APRN.CNM - 08/02/2022 2:58 PM EST Blood Sugar Testing: Test blood sugar 4 times a day for 2 weeks Fasting first thing in the morning and 2hrs after each meal (breakfast, lunch, and dinner) SIGNS AND SYMPTOMS OF LABOR 1. Contractions every 10 minutes or more often 2. Clear, pink, or brownish fluid (water) leaking from vagina 3. Feeling that baby is pushing down, pressure 4. Low, dull backache 5. Cramps that feel like a period 6. Cramps with or without diarrhea If you notice any of the above symptoms, contact our office at [phone] and ask to speak with anurse. After hours, you can call doctors registry at [phone] OR call [facility] at [phone] ask to have the doctor senior research consultant paged. If you consider this an emergency, dial 9-1 or go to your nearest emergency department. NEED HELP? Are you dealing with a violent or abusive relationship? Are you a victim of rape or sexual assult? Call [facility] ([place]) 24 hour Crisis Hotline: 212.952.7422 or 691-840-9172. MANUAL Your Guide to a Healthy manual is now on-line. Visit [email or web address] to download your free copy documented in this encounterOhiohealth [place] [facility]01-18-2023 Miscellaneous Notes* Telephone Encounter - Latasha Kendrick APRN.CNM - 08/02/2022 2:24 PM EST Order signed. Latasha Kendrick APRN.CNM * Telephone Encounter - Bela Molina RN - 08/02/2022 2:21 PM EST 32w4d Patient here for a growth US. Need a new order because previous order is closed. Please file. Thankyou. Bela Molina RN documented in this encounterOhiohealth [place] [facility] Hospital01-03-2023 Miscellaneous Notes* Quick Notes - Latasha Kendrick APRN.CNM - 07/18/2022 3:09 PM EST S: Mabel Dominguez is a 21 year old female who presents at 30.3 weeks gestation for a routine visit.Patient has made decision that she is not completing GCT screening and is alright with beingscreened for blood sugars after delivery. She took blood sugars for a couple of days and had results from 3 days. Advised will need 2 full weeks of monitoring blood sugars. Reviewed risks of undiagnosed GDM with patient. Her and voiced understanding. Denies headache, visual changes, chestpain, shortness of breath, vaginal bleeding, leakage of fluid, or dysuria. Feeling well, no complaints. O: See flow sheet Gen: No apparent distress Abd: Gravid, nontender S=D ASSESSMENT/PLAN: 1. 30 weeks gestation of - ICD9: V22.2, ICD10: Z3A.30 - URINE OB DIP B/O 2. Single umbilical artery - Growth US starting at 32 weeks gestation 3. Hx of HSV - Patient will need prophylaxis starting at 36 weeks gestation P: 1) PTL precautions reviewed and when to call 2) RTO 2 weeks for growth US and ARNALDO Kendrick APRN.CNM documented in this encounterOhiohealth [facility]01-03-2023 Instructions* Patient Instructions* Gracie Jeong Ma - 07/18/2022 2:59 PM EST SEQUENTIAL SCREENINGS The [facility] offers sequential screenings for women who are interested in screenings for chromosomal abnormalities and certain defects during a . The sequential screen combinesultrasound and blood tests to determine the risk of chromosomal abnormalities, including Down's Syndrome (Trisomy 21) and Trisomy 18, as well as open neural tube defects including spina bifida. Ultrasound examination is performed between 11 weeks and 13 weeks gestational age. Blood tests are drawn after the ultrasound and again later in the between 15 and 21 weeks gestational age. Please let your physician know if you are interested in this testing. It will require an appointment withour oral surgery technician. This is not an ultrasound performed by a physician in our office during a routine visit. SIGNS AND SYMPTOMS OF LABOR 1. Contractions every 10 minutes or more often 2. Clear, pink, or brownish fluid (water) leaking from vagina 3. Feeling that baby is pushing down, pressure 4. Low, dull backache 5. Cramps that feel like a period 6. Cramps with or without diarrhea If you notice any of the above symptoms, contact our office at [phone] and ask to speak with anurse. After hours, you can call doctors registry at [phone] OR call [facility] at [phone] ask to have the doctor senior research consultant paged. If you consider this an emergency, dial 9-1- or go to your nearest emergency department. NEED HELP? Are you dealing with a violent or abusive relationship? Are you a victim of rape or sexual assult? Call [facility] ([place]) 24 hour Crisis Hotline: 880.203.1493 or 255-104-1310. MANUAL Your Guide to a Healthy manual is now on-line. Visit [email or web address] to download your free copy documented in this encounterOhiohealth [place] [facility]10-14-2022 Miscellaneous Notes* Quick Notes - Latasha Kendrick APRN.CNM - 04/28/2022 2:56 PM EDT Mabel Dominguez is a 21 year old female who presents at 18w6d for a routine visit. Just completed anatomy ultrasound- 2 vessel cord noted. Reviewed patient will have serial growth ultrasounds startingat 32 weeks. Positive movement. Denies headache, visual changes, chest pain, shortness of breath, vaginal bleeding, leakage of fluid, or dysuria. Continues to take Vitamin B6 and Unisom for nausea. Appetite increasing. Size equal to dates. -3 lbs TWG. PTL precautions reviewed. RTC in 4 weeks or sooner if needed. Latasha Kendrick APRN.CNM documented in this encounterOhiohealth [facility]10-14-2022 Instructions* Patient Instructions* Gracie Jeong Ma - 04/28/2022 1:36 PM EDT SEQUENTIAL SCREENINGS The [facility] offers sequential screenings for women who are interested in screenings for chromosomal abnormalities and certain defects during a . The sequential screen combinesultrasound and blood tests to determine the risk of chromosomal abnormalities, including Down's Syndrome (Trisomy 21) and Trisomy 18, as well as open neural tube defects including spina bifida. Ultrasound examination is performed between 11 weeks and 13 weeks gestational age. Blood tests are drawn after the ultrasound and again later in the between 15 and 21 weeks gestational age. Please let your physician know if you are interested in this testing. It will require an appointment withour oral surgery technician. This is not an ultrasound performed by a physician in our office during a routine visit. SIGNS AND SYMPTOMS OF LABOR 1. Contractions every 10 minutes or more often 2. Clear, pink, or brownish fluid (water) leaking from vagina 3. Feeling that baby is pushing down, pressure 4. Low, dull backache 5. Cramps that feel like a period 6. Cramps with or without diarrhea If you notice any of the above symptoms, contact our office at [phone] and ask to speak with anurse. After hours, you can call doctors registry at [phone] OR call [facility] at [phone] ask to have the doctor senior research consultant paged. If you consider this an emergency, dial 91-9 or go to your nearest emergency department. NEED HELP? Are you dealing with a violent or abusive relationship? Are you a victim of rape or sexual assult? Call [facility] ([place]) 24 hour Crisis Hotline: 960.442.3638 or 386-525-3064. MANUAL Your Guide to a Healthy manual is now on-line. Visit [email or web address] to download your free copy documented in this encounterOhiohealth [facility]09-15-2022 Miscellaneous Notes* Quick Notes - Nisreen Cardozo MD - 03/30/2022 1:37 PM EDT SW- Pt doing well. No pain, vb, lof. Some N/V PE: Gen- NAD, well appearing Abd- Soft, NT See flowsheet A/p 14 wk gestatioin - Start B6 and Unisom - Schedule anatomy US - RTO 4 wks anatomy US and OB visit Nisreen Cardozo DO documented in this encounterOhiohealth [facility]09-15-2022 Instructions* Patient Instructions* Nisreen Cardozo MD - 03/30/2022 1:13 PM EDT Vitamin B6 50 mg twice daily Unisom 25 mg at bedtime SEQUENTIAL SCREENINGS The [facility] offers sequential screenings for women who are interested in screenings for chromosomal abnormalities and certain defects during a . The sequential screen combinesultrasound and blood tests to determine the risk of chromosomal abnormalities, including Down's Syndrome (Trisomy 21) and Trisomy 18, as well as open neural tube defects including spina bifida. Ultrasound examination is performed between 11 weeks and 13 weeks gestational age. Blood tests are drawn after the ultrasound and again later in the between 15 and 21 weeks gestational age. Please let your physician know if you are interested in this testing. It will require an appointment withour oral surgery technician. This is not an ultrasound performed by a physician in our office during a routine visit. SIGNS AND SYMPTOMS OF LABOR 1. Contractions every 10 minutes or more often 2. Clear, pink, or brownish fluid (water) leaking from vagina 3. Feeling that baby is pushing down, pressure 4. Low, dull backache 5. Cramps that feel like a period 6. Cramps with or without diarrhea If you notice any of the above symptoms, contact our office at [phone] and ask to speak with anurse. After hours, you can call doctors registry at [phone] OR call [facility] at [phone] ask to have the doctor senior research consultant paged. If you consider this an emergency, dial 9-1- or go to your nearest emergency department. NEED HELP? Are you dealing with a violent or abusive relationship? Are you a victim of rape or sexual assult? Call [facility] ([facility] 24 hour Crisis Hotline: 357.196.6501 or 782-090-4128. MANUAL Your Guide to a Healthy manual is now on-line. Visit [email or web address] to download your free copy documented in this encounter[facility] Miscellaneous Notes* Quick Notes - Latasha Kendrick APRN.CNM - 03/02/2022 2:20 PM EDT NOB completed. Latasha Kendrick APRN.CNM documented in this encounterOhio[facility]18-[facility]22 History of Present illness Narrative* Latasha Kendrick APRN.CNM - 03/02/2022 12:56 PM EDT Home Health Care Provider offered: Patient declines. INITIAL OB ASSESSMENT Obstetric History T1 L1 SAB0 IAB0 Ectopic0 Multiple0 Live Births1 Name of Baby 1: Aurelio Date: 07/04/19 GA: 40w5d Delivery: Vaginal, Spontaneous Apgar1: 8 Apgar5: 9 Living: Living Name of Baby 2: Not recorded Date: Not recorded GA: Not recorded Delivery: Not recorded Apgar1: Not recorded Apgar5: Not recorded Living: Not recorded HPI: Mabel Dominguez is a 21 year old female here to establish Obstetrical Care. Patient'slast menstrual period was 12/17/2021. from OB Dating Form. Test 01/10/22 positive Cycles 21-24 days, lasting 4-5 days. C/O bulge in vagina- thinks she may have a prolapse. Complaints: nausea without vomiting was planned. OB History T1 L1 SAB0 IAB0 Ectopic0 Multiple0 Live Births1 Prior : never History of 4th degree laceration: No Patient's Risk Screening for delivery: No History of abnormal pap: No Prior treatment for cervical dysplasia: none. History of STDs: HSV- last outbreak 1 month ago Tobacco use: No Caffeine use: No Drug use: No Alcohol use: No Multivitamin with Folic acid: Yes Occupation: homemaker Muslim or heritage: No Would refuse blood transfusion if medically necessary: No BMI 32.16 kg/(m^2) Patient BMI over 30? Yes Marital Status: Partner: Name: Micheline WilderBrandon) Age: 24 Occupation: Construction Gender: male History of STDs: HSV PAST MEDICAL HISTORY Diagnosis Date Anemia depression Genital herpes depression Seasonal allergies No past surgical history on file. Current Outpatient Medications on File Prior to Visit Medication Sig L.acid/L.casei/B.bif/B.akil/FOS (PROBIOTIC BLEND ORAL) Take by mouth. ALEXANDRA 0.25-35 mg-mcg per tablet TAKE 1 TABLET BY MOUTH EVERY DAY (Patient not taking: Reported on 02/27/2022) Ycqoflwi-Sn-Jmw-Fe-FA tab Take 1 tablet by mouth. cetirizine HCl (CETIRIZINE ORAL) Take by mouth. (Patient not taking: Reported on 02/27/2022) montelukast sodium (SINGULAIR ORAL) Take by mouth. (Patient not taking: Reported on 02/27/2022) No current facility-administered medications on file prior to visit. Review of Systems: GENERAL: Negative for: Fever or Chills and Positive for: Fatigue HEENT: Negative for: Headache, Impaired Vision, Ringing in Ears, Nosebleeds NECK: Negative for: Swelling, Pain, Stiffness RESPIRATORY: Negative for: Cough, Shortness of breath, Wheezing GASTROINTESTINAL: Negative for: Heartburn, Constipation, Diarrhea, Blood in stool, Vomiting and positive for nausea MUSCULOSKELETAL: Negative for: Muscle or joint pain, stiffness, Joint swelling NEUROLOGIC/PSYCHIATRIC: Negative for: Weakness, Paralysis, Numbness, Tingling, Tremor, Anxiety,Memory loss History of Depression- no medications. SKIN: Negative for: Rash, Itching GENITOURINARY: Negative for: vaginal itching, vaginal discharge, hematuria or dysuria PHYSICAL EXAM: BP 122/62 Ht 5' 2.205 (1.58m) Wt 177 lb (80.3kg) LMP 12/17/2021 BMI 32.16 kg/(m^2). GENERAL: pleasant female in no apparent distress DERMATOLOGY: Normal, without lesions, non-icteric, and non-hirsute NECK: Supple, full range of motion, no adenopathy, and thyroid normal CHEST: Normal inspiratory effort BREAST: soft, non-tender, symmetric, no dominant mass, normal nipple-areolar complex, no lymphadenopathy, and no nipple discharge ABDOMEN: soft, non-tender, and no masses NEURO: alert and oriented x3,exam grossly non-focal PELVIS: External genitalia normal without lesions. Perineal body intact. No vaginal or cervical lesions. Cervix closed. Uterus 11 week size. No adnexal masses or tenderness. Clinical Pelvimetry: Pelvimetry clinically assessed as adequate Limited OB ultrasound exam: single intrauterine , positive cardiac activity, and crown-rump length 11.1 OB Risk Screening: Completed, positive findings include: Patient answered 'Yes' to Partner with Herpes ASSESSMENT/PLAN: 1. Encounter for screening for malignant neoplasm of cervix - ICD9: V76.2, ICD10: Z12.4 (primary diagnosis) - PAP FLUID CERVICAL SCREENING 2. Supervision of normal first , antepartum - ICD9: V22.0, ICD10: Z34.00 - CBC - SYPHILIS TOTAL W/REFLEX - RUBELLA IGG AB - HEP B SURF AG SCRN - HEP C AB IA W/CONF SCRN - HIV 1 2 COMBO(AG/AB),WITH REFLEX TO DIFFERENTIATION - TYPE + SCREEN - GC/CHLAMYDIA DNA DET - URINE CULTURE 3. 10 weeks gestation of - ICD9: V22.2, ICD10: Z3A.10 -Patient oriented to practice. Discussed nutrition, folic acid supplementation, dietary guidelines, exercise, smoking, alcohol, caffeine, and drug use. Discussed routine OB labs including STD/HIV. Discussed aneuploidy screening options including serum screening and nuchal translucency. Patient declines all aneuploidy screening. CF carrier screening discussed and declined. 4. Cystocele, midline - ICD9: 618.01, ICD10: N81.11 - Contacted PT- patient can attend pelvic floor therapy once in second trimester 5. History of HSV - Start Acyclovir PO at 36 weeks gestation Follow up in 4 weeks or sooner prn. Latasha Kendrick APRN.CNM documented in this encounterOhio[facility]08-18-2022 Instructions* Patient Instructions* Archana Ferrari Ma - 03/02/2022 12:56 PM EDT Please select the following link to access the [facility] Your Guide to a Healthy . [email or web address] documented in this encounterOhiohealth Dublin [facility]08-15-2022 Miscellaneous Notes* Quick Notes - Valerie Drummond RN - 02/27/2022 5:28 PM EDT DISTANCE HEALTH VISIT This Team Access Model visit is a phone encounter. It required patient-provider interaction for themedical decision making as documented below.Pt has a history of genital herpes. Discussed with pt. importance of reporting any outbreaks during should they occur. Pt has a history of depression diagnosed at age 14. She states she has never been on medication to treat the depression. She states she did have depression she believes she is doing well off medication.. Discussed increased risks of depression during and and importance of reporting the development or worsening of symptoms should they occur. Pt states she last had suicidal thoughts at age 15.Patient declines aneuploidy screening and genetic carrier screening testing.TKRN documented in this encounterOhiohealth Dublin [facility]08-15-2022 History of Present illness Narrative* Valerie Drummond RN - 02/27/2022 5:27 PM EDT # 1 - Date: 07/04/19, Sex: Female, Weight: 7 lb 2 oz (3.232 kg), GA: 40w5d, Delivery: Vaginal, Spontaneous, Apgar1: 8, Apgar5: 9, Living: Living, Comments: Induced due to post dates, MSF, true know in cord, CAN x2 # 2 - Date: None, Sex: None, Weight: None, GA: None, Delivery: None, Apgar1: None, Apgar5: None, Living: None, Comments: None documented in this encounterOhio[facility]08-15-2022 Miscellaneous Notes* Telephone Encounter - Bela Molina RN - 02/27/2022 2:41 PM EDT Patient notified. Bela Molina RN * Telephone Encounter - Latasha Kendrick APRN.CNM - 02/27/2022 2:35 PM EDT She will have ultrasound completed at [facility]. We can determine then if needs formal dating ultrasound.Thanks! Latasha Kendrick APRN.CNM * Telephone Encounter - Suzette Carbajal RN - 02/27/2022 12:51 PM EDT Patient just called in and stated she gave wrong date for LMP. LMP is actually 12/17/21. Dating updated. Only 10w2d today. Suzette Carbajal RN * Telephone Encounter - Valerie Drummond RN - 02/27/2022 11:15 AM EDT Patient has a new OB appointment on March 02 with Latasha Kendrick. She she is currently 13 weeks 6days by dates. Her last menstrual period was November 22. She had a prior positive test the end of December. No care prior to today. States she called in at 6 weeks to make an appointment but she was not seen sooner due to [facility]-self pay approval. Do you want a ultrasound ordered prior to your new OB appointment on March 02. Patient agreeable to a 2:00 opening ttomorrow if you order. I put the time on hold for the patient. Will need to call patient back. documented in this encounterOhio[facility]10-03-2019 History of Past illness Narrative* Problem Noted Date Resolved Date with care elsewhere, [facility] 04/17/2019 08/08/2019 Overview: 04/17/2019Patient is transferring care from [employer] [facility]. She is 29w5d . Last saw Dr Wynn about a month ago. Patient signed a release of records form at Dr Wynn' office yesterday. Patient states she has been treated for a yeast infection twice this in the 2nd trimester. TKRN documented as of this encounter (statuses as of 02/27/2022) [facility] History of Past illness Narrative* Problem Noted Date Resolved Date with care elsewhere, [facility] 04/17/2019 08/08/2019 Overview: 04/17/2019Patient is transferring care from [facility]. She is 29w5d . Last saw Dr Wynn about a month ago. Patient signed a release of records form at Dr Wynn' office yesterday. Patient states she has been treated for a yeast infection twice this in the 2nd trimester. TKRN documented as of this encounter (statuses as of 03/02/2022) [facility] History of Past illness Narrative* Problem Noted Date Resolved Date with care elsewhere, [facility] 04/17/2019 08/08/2019 Overview: 04/17/2019Patient is transferring care from [employer]. She is 29w5d . Last saw Dr Wynn about a month ago. Patient signed a release of records form at Dr Wynn' office yesterday. Patient states she has been treated for a yeast infection twice this in the 2nd trimester. TKRN documented as of this encounter (statuses as of 03/02/2022) [facility] History of Past illness Narrative* Problem Noted Date Resolved Date with care elsewhere, [facility] 04/17/2019 08/08/2019 Overview: 04/17/2019Patient is transferring care from [employer]. She is 29w5d . Last saw Dr Wynn about a month ago. Patient signed a release of records form at Dr Wynn' office yesterday. Patient states she has been treated for a yeast infection twice this in the 2nd trimester. TKRN documented as of this encounter (statuses as of 03/30/2022) [facility] History of Past illness Narrative* Problem Noted Date Resolved Date with care elsewhere, [facility] 04/17/2019 08/08/2019 Overview: 04/17/2019Patient is transferring care from [employer]. She is 29w5d . Last saw Dr Wynn about a month ago. Patient signed a release of records form at Dr Wynn' office yesterday. Patient states she has been treated for a yeast infection twice this in the 2nd trimester. TKRN documented as of this encounter (statuses as of 04/28/2022) [facility] History of Past illness Narrative* Problem Noted Date Resolved [facility] 04[facility]/2019 08/08/2019 Overview: 04/17/2019Patient is transferring care from [employer]. She is 29w5d . Last saw Dr Wynn about a month ago. Patient signed a release of records form at Dr Wynn' office yesterday. Patient states she has been treated for a yeast infection twice this in the 2nd trimester. TKRN documented as of this encounter (statuses as of 04/28/2022) [facility] History of Past illness Narrative* Problem Noted Date Resolved Date with care elsewhere, [facility] 04/17/2019 08/08/2019 Overview: 04/17/2019Patient is transferring care from [facility]. She is 29w5d . Last saw Dr Wynn about a month ago. Patient signed a release of records form at Dr Wynn' office yesterday. Patient states she has been treated for a yeast infection twice this in the 2nd trimester. TKRN documented as of this encounter (statuses as of 07/20/2022) [facility] of Past illness Narrative* Problem Noted Date Resolved Date with care elsewhere, [facility] 04/17/2019 08/08/2019 Overview: 04/17/2019Patient is transferring care from [facility]. She is 29w5d . Last saw Dr Wynn about a month ago. Patient signed a release of records form at Dr Wynn' office yesterday. Patient states she has been treated for a yeast infection twice this in the 2nd trimester. TKRN documented as of this encounter (statuses as of 08/02/2022) [facility] of Past illness Narrative* Problem Noted Date Resolved Date with care elsewhere, [facility] 04/17/2019 08/08/2019 Overview: 04/17/2019Patient is transferring care from [employer]. She is 29w5d . Last saw Dr Wynn about a month ago. Patient signed a release of records form at Dr Wynn' office yesterday. Patient states she has been treated for a yeast infection twice this in the 2nd trimester. TKRN documented as of this encounter (statuses as of 08/02/2022) [facility] of Past illness Narrative* Problem Noted Date Resolved Date with care elsewhere, [facility] 04/17/2019 08/08/2019 Overview: 04/17/2019Patient is transferring care from [facility]. She is 29w5d . Last saw Dr Wynn about a month ago. Patient signed a release of records form at Dr Wynn' office yesterday. Patient states she has been treated for a yeast infection twice this in the 2nd trimester. TKRN documented as of this encounter (statuses as of 08/03/2022) [facility] of Past illness Narrative* Problem Noted Date Resolved Date with care elsewhere, [facility] 04/17/2019 08/08/2019 Overview: 04/17/2019Patient is transferring care from [facility]. She is 29w5d . Last saw Dr Wynn about a month ago. Patient signed a release of records form at Dr Wynn' office yesterday. Patient states she has been treated for a yeast infection twice this in the 2nd trimester. TKRN documented as of this encounter (statuses as of 09/01/2022) [facility] of Past illness Narrative* Problem Noted Date Resolved Date with care elsewhere, [facility] 04/17/2019 08/08/2019 Overview: 04/17/2019Patient is transferring care from [facility]. She is 29w5d . Last saw Dr Wynn about a month ago. Patient signed a release of records form at Dr Wynn' office yesterday. Patient states she has been treated for a yeast infection twice this in the 2nd trimester. TKRN documented as of this encounter (statuses as of 09/08/2022) [facility] of Past illness Narrative* Problem Noted Date Resolved Date with care elsewhere, [facility] 04/17/2019 08/08/2019 Overview: 04/17/2019Patient is transferring care from [employer]. She is 29w5d . Last saw Dr Wynn about a month ago. Patient signed a release of records form at Dr Wynn' office yesterday. Patient states she has been treated for a yeast infection twice this in the 2nd trimester. TKRN documented as of this encounter (statuses as of 09/19/2022) [facility] of Past illness Narrative* Problem Noted Date Resolved Date with care elsewhere, [facility] 04/17/2019 08/08/2019 Overview: 04/17/2019Patient is transferring care from [facility]. She is 29w5d . Last saw Dr Wynn about a month ago. Patient signed a release of records form at Dr Wynn' office yesterday. Patient states she has been treated for a yeast infection twice this in the 2nd trimester. TKRN documented as of this encounter (statuses as of 10/02/2022) [facility]* Diagnosis Supervision of normal first , antepartum- Primary documented in this encounter [facility]* Diagnosis Encounter for screening for malignant neoplasm of cervix- Primary Screening for malignant neoplasm of the cervix Supervision of other normal , antepartum 10 weeks gestation of state, incidental Cystocele, midline documented in this encounter [facility]* Diagnosis Late care- Primary Insufficient care documented in this encounter [facility]* Diagnosis 14 weeks gestation of - Primary state, incidental Supervision of other normal , antepartum documented [facility] [place] [facility]* Diagnosis Encounter for anatomic survey- Primary Obesity complicating , second trimester 18 weeks gestation of state, incidental 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 [facility] [place] [facility]* Diagnosis 18 weeks gestation of - Primary state, incidental 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 documented [facility] this encounter [facility] [place] [facility]* Diagnosis 30 weeks gestation of - Primary state, incidental documented in this encounter [facility] [place] [facility]* Diagnosis 32 weeks gestation of - Primary state, incidental documented in this encounter [facility] [place] [facility]* Diagnosis 32 weeks gestation of - Primary state, incidental documented in this encounter [facility] [place] [facility]* Diagnosis 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 Obesity in Obesity complicating , childbirth, or the puerperium, unspecified as to episode of care or not applicable 32 weeks gestation of state, incidental [facility] [place] [facility]* Diagnosis 36 weeks gestation of - Primary state, incidental Encounter for supervision of other normal in third trimester History of herpes genitalis Personal history of other infectious and parasitic disease documented [facility] this encounter [facility] [place] [facility]* Diagnosis 37 weeks gestation of - Primary state, incidental documented in this encounter [facility] note* Diagnosis Onset Date Resolution Status 39 weeks gestation of acute Elective induction of labor planned acute First degree laceration of p erineum during delivery, acute History of depression acute History of herpes genitalis acute depression acute Two vessel umbilical cord ac [facility] Work Phone: Evaluation note* Diagnosis Encounter for screening for maternal depression- Primary documented [facility] encounter [facility] [place] [facility]* Diagnosis Supervision of other high risk pregnancies, first trimester (HCC)- Primary with uncertain dates, antepartum (HCC) state, incidental History of depression Obesity in (HCC) Obesity complicating , childbirth, or the puerperium, unspecified as to episode of care or not applicable Nausea and vomiting in (HCC) Unspecified vomiting of , unspecified as to episode of care History of herpes genitalis Personal history of other infectious and parasitic disease documented in this encounter [facility] [place] [facility]* Diagnosis Supervision of other high risk pregnancies, first trimester (HCC)- Primary 12 weeks gestation of ([facility]) state, incidental Nausea and vomiting in (HCC) Unspecified vomiting of , unspecified as to episode of care Obesity in (HCC) Obesity complicating , childbirth, or the puerperium, unspecified as to episode of care or not applicable documented in this encounter [facility] note* Diagnosis Encounter for screening for malformation using ultrasound ([facility])- Primary Encounter for (NT) nuchal translucency scan ([facility]) Other specified screening 12 weeks gestation of ([facility]) state, incidental documented in this encounter [facility] note* Diagnosis 16 weeks gestation of ([facility])- Primary state, incidental Supervision of other high risk pregnancies, first trimester ([facility]) Obesity in ([facility]) Obesity complicating , childbirth, or the puerperium, unspecified as to episode of care or not applicable documented in this encounter [facility] note* Diagnosis Encounter for anatomic survey ([facility])- Primary Encounter for anatomic survey 20 weeks gestation of ([facility]) state, incidental Obesity affecting in second trimester, unspecified obesity type ([facility]) documented in this encounter [facility] note* Diagnosis Supervision of high risk in second trimester (HCC)- Primary Unspecified high-risk Obesity in (HCC) Obesity complicating , childbirth, or the puerperium, unspecified as to episode of care or not applicable 20 weeks gestation of ([facility]) state, incidental Supervision of other high risk pregnancies, first trimester ([facility]) documented in this encounter [facility] note* Diagnosis Screening for diabetes mellitus- Primary 24 weeks gestation of ([facility]) state, incidental Supervision of high risk in second trimester ([facility]) Unspecified high-risk Obesity in ([facility]) Obesity complicating , childbirth, or the puerperium, unspecified as to episode of care or not applicable Anxiety about health documented in this encounter [facility] for referral (narrative)* Diagnostic Procedure Only (Routine) - Pending Review Specialty Diagnoses / Procedures Referred By Contangelic t Referred To Contact [facility] Diagnoses Supervision of other normal , antepartum Procedures OBSTETRIC ULTRASOUND WHI US PREG UTERUS AFTER 1ST TRIMEST 1/ Latasha Kendrick APRN.CNM [address] [place] [address] [facility] [address] [place] [address] Referral ID Status Reason Start Date Expiration Date Visits Requested Visits Authorized [id number] Pending Review Auto-Generat ed Referral 03/02/2022 03/02/2023 1 1 [facility] for referral (narrative)* Diagnostic Procedure Only (Routine) - Closed Specialty Diagnoses / Procedures Referred By Contac t Referred To Contact [facility] Diagnoses 32 weeks gestation of Procedures OBSTETRIC ULTRASOUND WHI US PREG UTERUS AFTER 1ST TRIMEST GESTATION Latasha Kendrick APRN.CNM [address] [place] [address] [facility] [address] [place] [address] Referral ID Status Reason Start Date Expiration Date V isits Requested Visits Authorized [id number] Closed Auto-Generate d Referral 08/02/2022 08/02/2023 1 1 [facility] for visit Narrative* Diagnostic Procedure Only (Routine) - Closed Specialty Diagnoses / Procedures Referred By Contac t Referred To Contact [facility] Diagnoses with uncertain dates, antepartum (HCC) Procedures OBSTETRIC ULTRASOUND WHI US PREG UTERUS AFTER 1ST TRIMEST GESTATION Pao Powell APRN.CNM [address] [place] [address] Phone: tel: fax: [facility] [address] [place] [address] Referral ID Status Reason Start Date Expiration Date V isits Requested Visits Authorized [id number] Closed Auto-Generate d Referral 11/17/2024 11/17/2025 1 1 [facility] [facility] Chief Complaint and Reason for Visit Chief Complaint VAG DELIVERY Reason for Visit 39 weeks gestation o f Elective induction of labor planned First degree laceration of perineum during delivery, History of depression History of herpes genitalis depression Two vessel umbilical cord Vaginal delivery Advance Directives No Advanced Directives Records Found Advance Directive Response Recorded Date/ Time Living Will No September 18, 2022 9:21am Power of Jail Guard No September 18 9:21am Summary Purpose Family History No Family History Records FoundNo Family History Records Found Additional Source Comments Source Comments (unrecognize d section and content) In the event this informatio n is protected by the Federal Confidentiality of Alcohol and Drug Abuse Patient Records regulations: The Federal rules restrict any use of the information to criminally investigate or prosecute any alcohol or drug abuse patient.[facility] the event this information is protected by the Federal Confidentiality of Alcohol and Drug Abuse Patient Records regulations: The Federal rules restrict any use of the information to criminally investigate or prosecute any alcohol or drug abuse patient.[facility] the event this information is protected by the Federal Confidentiality of Alcohol and Drug Abuse Patient Records regulations: The Federal rules restrict any use of the information to criminally investigate or prosecute any alcohol or drug abuse patient.[facility] the event this information is protected by the Federal Confidentiality of Alcohol and Drug Abuse Patient Records regulations: The Federal rules restrict any use of the information to criminally investigate or prosecute any alcohol or drug abuse patient.[facility] the event this information is protected by the Federal Confidentiality of Alcohol and Drug Abuse Patient Records regulations: The Federal rules restrict any use of the information to criminally investigate or prosecute any alcohol or drug abuse patient.[facility] the event this information is protected by the Federal Confidentiality of Alcohol and Drug Abuse Patient Records regulations: The Federal rules restrict any use of the information to criminally investigate or prosecute any alcohol or drug abuse patient.[facility] the event this information is protected by the Federal Confidentiality of Alcohol and Drug Abuse Patient Records regulations: The Federal rules restrict any use of the information to criminally investigate or prosecute any alcohol or drug abuse patient.[facility] the event this information is protected by the Federal Confidentiality of Alcohol and Drug Abuse Patient Records regulations: The Federal rules restrict any use of the information to criminally investigate or prosecute any alcohol or drug abuse patient.[facility] the event this information is protected by the Federal Confidentiality of Alcohol and Drug Abuse Patient Records regulations: The Federal rules restrict any use of the information to criminally investigate or prosecute any alcohol or drug abuse patient.[facility] the event this information is protected by the Federal Confidentiality of Alcohol and Drug Abuse Patient Records regulations: The Federal rules restrict any use of the information to criminally investigate or prosecute any alcohol or drug abuse patient.[facility] the event this information is protected by the Federal Confidentiality of Alcohol and Drug Abuse Patient Records regulations: The Federal rules restrict any use of the information to criminally investigate or prosecute any alcohol or drug abuse patient.[facility] the event this information is protected by the Federal Confidentiality of Alcohol and Drug Abuse Patient Records regulations: The Federal rules restrict any use of the information to criminally investigate or prosecute any alcohol or drug abuse patient.[facility] the event this information is protected by the Federal Confidentiality of Alcohol and Drug Abuse Patient Records regulations: The Federal rules restrict any use of the information to criminally investigate or prosecute any alcohol or drug abuse patient.[facility] the event this information is protected by the Federal Confidentiality of Alcohol and Drug Abuse Patient Records regulations: The Federal rules restrict any use of the information to criminally investigate or prosecute any alcohol or drug abuse patient.[facility] the event this information is protected by the Federal Confidentiality of Alcohol and Drug Abuse Patient Records regulations: The Federal rules restrict any use of the information to criminally investigate or prosecute any alcohol or drug abuse patient.[facility] the event this information is protected by the Federal Confidentiality of Alcohol and Drug Abuse Patient Records regulations: The Federal rules restrict any use of the information to criminally investigate or prosecute any alcohol or drug abuse patient.[facility] the event this information is protected by the Federal Confidentiality of Alcohol and Drug Abuse Patient Records regulations: The Federal rules restrict any use of the information to criminally investigate or prosecute any alcohol or drug abuse patient.[facility] HospitalIn the event this information is protected by the Federal Confidentiality of Alcohol and Drug Abuse Patient Records regulations: The Federal rules restrict any use of the information to criminally investigate or prosecute any alcohol or drug abuse patient.[facility] HospitalIn the event this information is protected by the Federal Confidentiality of Alcohol and Drug Abuse Patient Records regulations: The Federal rules restrict any use of the information to criminally investigate or prosecute any alcohol or drug abuse patient.[facility]In the event this information is protected by the Federal Confidentiality of Alcohol and Drug Abuse Patient Records regulations: The Federal rules restrict any use of the information to criminally investigate or prosecute any alcohol or drug abuse patient.[facility]In the event this information is protected by the Federal Confidentiality of Alcohol and Drug Abuse Patient Records regulations: The Federal rules restrict any use of the information to criminally investigate or prosecute any alcohol or drug abuse patient.[facility]In the event this information is protected by the Federal Confidentiality of Alcohol and Drug Abuse Patient Records regulations: The Federal rules restrict any use of the information to criminally investigate or prosecute any alcohol or drug abuse patient.[facility] Reason for Visit (unrecogniz ed section and content) Reason Comments [place] Specialty Diagnoses / Procedures Referred By Praneeth t [facility] Diagnoses with uncertain dates, antepartum (HCC) Procedures OBSTETRIC ULTRASOUND WHI US PREG UTERUS AFTER 1ST TRIMEST GESTATION Pao Powell APRN.CNM [address] [place] [address] Phone: tel: fax: [facility] [address] [place] [address] Referral ID Status Reason Start Date Expiration Date V isits Requested Visits Authorized [id number] Closed Auto-Generate d Referral 11/17/2024 11/17/2025 1 1 Reason Onset Date Comments Care 08/31/2022 Specialty Diagnoses / Procedures Referred By Contac t Referred To Contact [facility]ETING PROFESSIONAL Diagnoses OBGYN visit Procedures OFFICE/OUTPATIENT NEW MODERATE MDM 45-59 MINUTES OB VISIT Self [employer] [address] [place] [address] Referral ID Status Reason Start Date Expiration Date V isits Requested Visits Authorized [id number] Closed Patient Cleared - [employer] 05/26/2022 08/24/2022 30 30 Referral ID Status Reason Start Date Expiration Date Visits Requested Visits Authorized [id number] Authorized Patient Cleared - [employer] 08/24/2022 30 30 Reason Onset Date Comments Care 04/28/2022 Specialty Diagnoses / Procedures Referred By Contac t Referred To Contact [facility] Diagnoses ob visits Procedures Ob visit Self [facility] [address] [place] [address] Referral ID Status Reason Start Date Expiration Date Visits Requested Visits Authorized [id number] Authorized Patient Cleared - [employer] 03/07/2022 06/05/2022 99 99 Reason Comments Care Specialty Diagnoses / Procedures Referred By Contac t Referred To Contact [facility]ETING PROFESSIONAL Diagnoses PNOB Procedures I NURSE Carmine MD Wstr, Nurse [facility] [address] [place] [address] Referral ID Status Reason Start Date Expiration Date V isits Requested Visits Authorized [id number] Closed Financial Clearance Required - Self Pay Patient Cleared - [employer] 02/27/2022 05/28/2022 1 1 Reason Comments Initial OB Visit Specialty Diagnoses / Procedures Referred By Contac t Referred To Contact [employer] PROFESSIONAL Diagnoses New Ob visit patietn currently 8 1/2 weeks needs appointment soone Procedures N OB visit Pao Powell, HYDROLOGY TEACHER.CNM [address] [place] [address] [employer] [address] [place] [address] Referral ID Status Reason Start Date Expiration Date V isits Requested Visits Authorized [id number] Closed Patient Cleared [facility] 02/13/2022 05/14/2022 1 1 Reason Comments late care Reason Onset Date Comments Care 03/30/2022 Specialty Diagnoses / Procedures Referred By Contac t Referred To Contact [facility]ETING PROFESSIONAL Diagnoses LMP UNKNOWN 10 WEEKS Procedures [facility] OB 1ST EXAM Pao Powell, HYDROLOGY TEACHER.CNM [address] [place] [address] Latasha Kendrick HYDROLOGY TEACHER.CNM [address] [place] [address] Referral ID Status Reason Start Date Expiration Date V isits Requested Visits Authorized [id number] Closed Patient Cleared [facility] 03/02/2022 07/15/2022 99 1 Reason Onset Date Comments Care 07/18/2022 Specialty Diagnoses / Procedures Referred By Contac t Referred To Contact [facility]ESSIONAL Diagnoses OBGYN visit Procedures OB VISIT Self [employer] [address] [place] [address] Reason Comments Orders Reason Onset Date Comments Care 08/02/2022 Reason Onset Date Comments Care 09/08/2022 Specialty Diagnoses / Procedures Referred By Contac t Referred To Contact [employer] [facility] Diagnoses Procedures FOLLOW-UP/REASSESSMENT Nisreen Cardozo MD [address] [place] [address] [employer] [address] [place] [address] Referral ID Status Reason Start Date Expiration Date Visits Requested Visits Authorized [id number] Authorized Patient Cleared - [facility] 08/31/2022 09/12/2022 6 6 Reason Comments Ob Delivery Note Specialty Diagnoses / Procedures Referred By Contac t Referred To Contact MARKETING PROFESSIONAL APPTS MAIN Diagnoses n/a Procedures postportum visit Self [employer] [address] [place] [address] Referral ID Status Reason Start Date Expiration Date V isits Requested Visits Authorized [id number] Denied Patient Cleared - [employer] 09/21/2022 12/20/2022 1 0 Reason Comments Initial OB Visit Reason Onset Date Comments Care 12/18/2024 Reason Onset Date Comments Care 01/15/2025 Reason Onset Date Comments Care 02/12/2025 Reason Onset Date Comments Care 03/12/2025 Care Teams (unrecognized sec tion and content) Team Status: Active Member Role Status Dates Dr. Luann Dunn MD Family Provider Active Dr. Luann Dunn MD Primary Care Provider Active Team Status: Active Member Role Status Dates Dr. Luann Dunn MD Primary Care Provider Active Dr. Todd Montague MD Attending Provider Active Team Status: Inactive Member Role Status Dates Dr. Luann Dunn MD Primary Care Provider Active Pao Powell CNM Admit Provider, Atte nding Provider, Referring Provider Active INFORMATION SOURCE (unrecogn ized section and content) DATE CREATED AUTHOR 10/02/2022 [facility] DATE CREATED AUTHOR AUTHOR'S ORGANIZ ATION 05/25/2025 [facility] FOR RECORDS PERTAINING TO PATIENTS WHO ARE OR HAVE BEEN ENROLLED IN A CHEMICAL DEPENDENCY/SUBSTANCEABUSE PROGRAM, SOME INFORMATION MAY BE OMITTED. This clinical summary was aggregated from multiple sources. Caution should be exercised in using it in the provision of clinical care. This summary normalizes information from multiple sources, and as a consequence, information in this document may materially change the coding, format and clinical context of patient data. In addition, data may be omitted in some cases. CLINICAL DECISIONS SHOULD BE BASED ON THE PRIMARY CLINICAL RECORDS. [employer] provides no warranty or guarantee of the accuracy or completeness of information in this document.
[2025-06-25] MEDS: Lactated Ringers 1,000 ML 50 ML IV (07:50)
--- OUTSIDE RECORDS SUMMARY | 2025-06-25 07:55 | XMS RPT_ITS | CCD ---
Author Organization [facility] Care Team Providers Care Cdl Driver Name Role Phone Unavailable Primary Care Provider Dr. Luann Ceja Primary Care Provider [phone] Todd Montague Attending Provider Todd Montague Attending Unavailable Shaun, Dr. Kogn Primary Care Unavailable Powell Pao Admitting Unavailable [...] reactions to drug 9 Other: See Comments [facility] Work Phone: (1 source) Penicillins Allergy to substance 9 Unknown [facility] (1 source) Penicillins Drug allergy (disorder) 9 [facility] Repository (8 sources) Penicillins Propensity to adverse reactions to drug 9 Other: See Comments [facility] Medications Current Medications Medication Drug Class(es) Dates [...] for nausea/vomiting. 30 tablet 1 12/18/2024 Active Uhljiqof-Vi-Vjh-Fe-FA tab (20 sources) take 1 tablet by mouth once Ltquwfee-Pk-Ris-Fe-F A tab Take 1 tablet by mouth. Active take 1 tablet by mouth once Pren atal Lhilpuoq-Ju-Pab-Fe-FA tab Take 1 tablet by mouth. 0 Active Comment on above: Take 1 tablet by ha th. Vit,Mwea96-Qjij-Mvpgn (1 source) Start: 9 take 1 tablet by mouth once daily Vit,Nday65-Tihn-Ujvm c Active 1 TABLET PO DAILY July [...] controlled; Translations: [Gestational diabetes mellitus, class A1 ([facility])] Onset: 05-21-2025 Episodic Miscellaneous mental health disorders [...] of ; Translations: [12 weeks gestation of ([facility])] Onset: 12-18-2024 Episodic Residual codes; unclassified (1 [...] Quintero 04-10-2025 SÁNCHEZ Telephone (OBGYWM) MABEL DOMINGUEZ ([id number]) 2000 F Date Time Provider Department 04/10/25 [...] 8 hours as needed for nausea/vomiting. - Ccledwje-Uz-Ewj-Fe-F A tab Take 1 tablet by mouth. [...] Status:Closed by SUZETTE CARBAJAL on 04/15/25 Normal [facility] CBC panel Auto (Bld)on 04-09 Erythrocyte distribution width (RBC) [Ratio] 13.2 % Normal 11.5-15.0 [facility] Comment on above: Order Comment: Speci men Type: BLOOD SPECIMEN Ordering Facility: [facility] Address: [address] [place] [address] Performed By: #### 5 8410-2 #### [facility] CLIA [id number] [address] [place], [place] [id number] [place] Hematocrit (Bld) [Volume fraction] 33.6 % Low 36.0-46.0 [facility] Comment on above: Order Comment: Speci men Type: BLOOD SPECIMEN Ordering Facility: [facility] Address: [address] [place] [address] Performed By: #### 5 8410-2 #### [facility] CLIA [id number] [address] [place] [address] [place] Hemoglobin (Bld) [Mass/Vol] 11.8 g/dL Normal 11.5-15.5 [facility] Comment on above: Order Comment: Speci men Type: BLOOD SPECIMEN Ordering Facility: [facility] Address: [address] [place] [address] Performed By: #### 5 8410-2 #### [facility] [id number] [address] [place] [address] [place] MCH (RBC) [Entitic mass] 31.4 pg Normal 26.0-34.0 [facility] Comment on above: Order Comment: Speci men Type: BLOOD SPECIMEN Ordering Facility: [facility] Address: [address] [place] [address] Performed By: #### 5 8410-2 #### [facility] [id number] [address] [place] [address] [place] MCHC (RBC) [Mass/Vol] 35.1 g/dL Normal 30.5-36.0 [facility] Comment on above: Order Comment: Speci men Type: BLOOD SPECIMEN Ordering Facility: [facility] Address: [address] [place] [address] Performed By: #### 5 8410-2 #### [facility] [id number] [address] [place] [address] [place] MCV (RBC) [Entitic vol] 89.4 fL Normal 80.0-100.0 [facility] Comment on above: Order Comment: Speci men Type: BLOOD SPECIMEN Ordering Facility: [facility] Address: [address] [place] [address] Performed By: #### 5 8410-2 #### [facility] CLIA [id number] [address] [place] [address] [place] Nucleated RBC (Bld) [#/Vol] 10*3/uL Normal <0.01 [facility] Comment on above: Order Comment: Speci men Type: BLOOD SPECIMEN Ordering Facility: [facility] Address: [address] [place] [address] Performed By: #### 5 8410-2 #### [facility] CLIA [id number] [address] [place] [address] [place] Platelet mean volume (Bld) [Entitic vol] 9.7 fL Normal 9.0-12.7 [facility] Comment on above: Order Comment: Speci men Type: BLOOD SPECIMEN Ordering Facility: [facility] Address: [address] [place] [address] Performed By: #### 5 8410-2 #### [facility] CLIA [id number] [address] [place] [address] [place] Platelets (Bld) [#/Vol] 294 10*3/uL Normal 150-400 [facility] Comment on above: Order Comment: Speci men Type: BLOOD SPECIMEN Ordering Facility: [facility] Address: [address] [place] [address] Performed By: #### 5 8410-2 #### [facility] CLIA [id number] [address] [place] [address] [place] RBC (Bld) [#/Vol] 3.76 10*6/uL Low 3.90-5.20 [facility] Comment on above: Order Comment: Speci men Type: BLOOD SPECIMEN Ordering Facility: [facility] Address: [address] [place] [address] Performed By: #### 5 8410-2 #### [facility] CLIA [id number] [address] [place] [address] [place] WBC (Bld) [#/Vol] 9.95 10*3/uL Normal 3.70-11.00 [facility] Comment on above: Order Comment: Speci men Type: BLOOD SPECIMEN Ordering Facility: [facility] Address: [address] [place] [address] Performed By: #### 5 8410-2 #### [facility] CLIA [id number] [address] [place] [address] [place] GESTATIONAL GLUCOSE SCREEN, 1-HOUR, 50 GRAM, NON-FASTINGon 04-09-2025 Glucose [Mass/Vol] 144 mg/dL High 74-134 [facility] Comment on above: Order Comment: Felicei deonte Type: BLOOD SPECIMEN Ordering Facility: [facility] Address: [address] [place] [address] Result Comment: [facility] Congress of Obstetricians and Gynecologists (Quezada/Anabelle) guidelines state a gestational diabetes mellitus positive screen is made, in women not previously diagnosed with overt diabetes, when the 1 hr plasma glucose level is equal to or above 140 mg/dL. The [facility] Coordinator and [facility] [place] recommends a 135 mg/dL cutoff. Performed By: #### G LTGST #### [facility] CLIA [id number] [address] [place] [address] [place] Reagin and Treponema pallidu m IgG and IgM [Interp]on 04-09-2025 T. pallidum IgG+IgM IA Ql (S) Non-Reactive Normal Nonreactive [facility] Comment on above: Order Comment: Speci men Type: BLOOD SPECIMEN Ordering Facility: [facility] Address: [address] [place] [address] Performed By: #### 7 3752-8 #### [facility] CLIA [id number] [address] [place], [place] [address] [place] [address] [place] Reagin+T pallidum IgG+IgM Se rPl-Impon 04-09-2025 Reagin and Treponema pallidum IgG and IgM [Interp] Cannot exclude recent Treponemal infection if specimen collected within 7-10 days after appearance of suspect lesions or 2-3 weeks after an exposure. Clinical correlation is required. Normal [facility] Comment on above: Order Comment: Speci men Type: BLOOD SPECIMEN Ordering Facility: [facility] Address: [address] [place] [address] Performed By: #### 7 3752-8 #### [facility] CLIA [id number] [address] [place] [address] STATES OF [facility] Examination level ultrasound on 02-12-2025 Indication [...] 13 oz EFW by: Hadlock (HC-AC-FL) Extended Expedition Supervisor 5.6 mm CM 3.8 mm 15% Nicolaides [...] normal LVOT view: normal 3-vessel view: normal 7-oduwvo-qsviejc view: normal Heart / Thorax Situs: situs [...] Read By: Chiquita Wagner M.D. MATERNAL MEDICINE [facility] Radiology Study observation (narrative) [facility] CBC W Auto Differential pane l (Bld)on 12-18-2024 Basophils (Bld) [#/Vol] 0.05 10*3/uL Normal <0.11 [facility] Comment on above: Order Comment: Speci men Type: BLOOD SPECIMEN Ordering Facility: [facility] Address: [address] [place] [address] Performed By: #### 5 7021-8 #### [facility] CLIA [id number] [address] [place] [address] [place] [facility] CLIA [id number] [address] [place] [address] [place] Basophils/100 WBC (Bld) 0.7 % Normal [facility] Comment on above: Order Comment: Speci men Type: BLOOD SPECIMEN Ordering Facility: [facility] Address: [address] [place] [address] Performed By: #### 5 7021-8 #### [facility] CLIA [id number] [address] [place] [address] [place] [facility] CLIA [id number] [address] [place] [address] [place] Differential cell count method Nom (Bld) Auto Normal [facility] Comment on above: Order Comment: Speci men Type: BLOOD SPECIMEN Ordering Facility: [facility] Address: [address] [place] [address] Performed By: #### 5 7021-8 #### [facility] CLIA [id number] [address] OF [facility] CLIA [id number] [address] [place] [address] [place] Eosinophils (Bld) [#/Vol] 0.05 10*3/uL Normal <0.46 [facility] Comment on above: Order Comment: Speci men Type: BLOOD SPECIMEN Ordering Facility: [facility] Address: [address] [place] [address] Performed By: #### 5 7021-8 #### [facility] CLIA [id number] [address] [place] [address] STATES OF [facility] CLIA [id number] [facility] [place] [address] [place] Eosinophils/100 WBC (Bld) 0.7 % Normal [facility] Comment on above: Order Comment: Speci men Type: BLOOD SPECIMEN Ordering Facility: [facility] Address: [address] [place] [address] Performed By: #### 5 7021-8 #### [facility] CLIA [id number] [address] [place] [address] [place] [facility] CLIA [id number] [address] [place] [address] [place] Erythrocyte distribution width (RBC) [Ratio] 13.0 % Normal 11.5-15.0 [facility] Comment on above: Order Comment: Speci men Type: BLOOD SPECIMEN Ordering Facility: [facility] Address: [address] [place] [address] Performed By: #### 5 7021-8 #### [facility] CLIA [id number] [address] [place] [address] [place] [facility] CLIA [id number] [address] [place] [address] [place] Hematocrit (Bld) [Volume fraction] 38.5 % Normal 36.0-46.0 [facility] Comment on above: Order Comment: Speci men Type: BLOOD SPECIMEN Ordering Facility: [facility] Address: [address] [place] [address] Performed By: #### 5 7021-8 #### [facility] CLIA [id number] [address] [place] [address] [place] [facility] CLIA [id number] [address] [place] [address] [place] Hemoglobin (Bld) [Mass/Vol] 13.4 g/dL Normal 11.5-15.5 [facility] Comment on above: Order Comment: Speci men Type: BLOOD SPECIMEN Ordering Facility: [facility] Address: [address] [place] [address] Performed By: #### 5 7021-8 #### [facility] CLIA [id number] [address] [place] [address] [place] [facility] CLIA [id number] [address] [place] [address] [place] Immature granulocytes (Bld) [#/Vol] 10*3/uL Normal <0.10 [facility] Comment on above: Order Comment: Speci men Type: BLOOD SPECIMEN Ordering Facility: [facility] Address: [address] [place] [address] Performed By: #### 5 7021-8 #### [facility] CLIA [id number] [address] [place] [address] [place] [facility] CLIA [id number] [address] [place] [address] [place] Immature granulocytes/100 WBC (Bld) 0.1 % Normal [facility] Comment on above: Order Comment: Speci men Type: BLOOD SPECIMEN Ordering Facility: [facility] Address: [address] [place] [address] Performed By: #### 5 7021-8 #### [facility] CLIA [id number] [address] [place] [address] [place] [facility] CLIA [id number] [address] [place] [address] [place] Lymphocytes (Bld) [#/Vol] 3.03 10*3/uL Normal 1.00-4.00 [facility] Comment on above: Order Comment: Speci men Type: BLOOD SPECIMEN Ordering Facility: [facility] Address: [address] [place] [address] Performed By: #### 5 7021-8 #### [facility] CLIA [id number] [address] [place] [address] [place] [facility] CLIA [id number] [address] [place] [address] [place] Lymphocytes/100 WBC (Bld) 40.7 % Normal [facility] Comment on above: Order Comment: Speci men Type: BLOOD SPECIMEN Ordering Facility: [facility] Address: [address] [place] [address] Performed By: #### 5 7021-8 #### [facility] CLIA [id number] [address] [place] [address] [place] [facility] CLIA [id number] [address] [place] [address] [place] MCH (RBC) [Entitic mass] 30.7 pg Normal 26.0-34.0 [facility] Comment on above: Order Comment: Speci men Type: BLOOD SPECIMEN Ordering Facility: [facility] Address: [address] [place] [address] Performed By: #### 5 7021-8 #### [facility] CLIA [id number] [address] [place] [address] [place] [facility] CLIA [id number] [address] [place] [address] [place] MCHC (RBC) [Mass/Vol] 34.8 g/dL Normal 30.5-36.0 [facility] Comment on above: Order Comment: Speci men Type: BLOOD SPECIMEN Ordering Facility: [facility] Address: [address] [place] [address] Performed By: #### 5 7021-8 #### [facility] CLIA [id number] [address] [place] [address] [place] [facility] CLIA [id number] [address] [place] [address] [place] MCV (RBC) [Entitic vol] 88.3 fL Normal 80.0-100.0 [facility] Comment on above: Order Comment: Speci men Type: BLOOD SPECIMEN Ordering Facility: [facility] Address: [address] [place] [address] Performed By: #### 5 7021-8 #### [facility] CLIA [id number] [address] [place] [address] [place] [facility] CLIA [id number] [address] [place] [address] [place] Monocytes (Bld) [#/Vol] 0.46 10*3/uL Normal <0.87 [facility] Comment on above: Order Comment: Speci men Type: BLOOD SPECIMEN Ordering Facility: [facility] Address: [address] [place] [address] Performed By: #### 5 7021-8 #### [facility] CLIA [id number] [address] [place] [address] [place] [facility] CLIA [id number] [address] [place] [address] [place] Monocytes/100 WBC (Bld) 6.2 % Normal [facility] Comment on above: Order Comment: Speci men Type: BLOOD SPECIMEN Ordering Facility: [facility] Address: [address] [place] [address] Performed By: #### 5 7021-8 #### [facility] CLIA [id number] [address] [place] [address] [place] [facility] CLIA [id number] [address] [place] [address] [place] Neutrophils (Bld) [#/Vol] 3.85 10*3/uL Normal 1.45-7.50 [facility] Comment on above: Order Comment: Speci men Type: BLOOD SPECIMEN Ordering Facility: [facility] Address: [address] [place] [address] Performed By: #### 5 7021-8 #### [facility] CLIA [id number] [address] [place] [address] [place] [facility] CLIA [id number] [address] [place] [address] [place] Neutrophils/100 WBC (Bld) 51.6 % Normal [facility] Comment on above: Order Comment: Speci men Type: BLOOD SPECIMEN Ordering Facility: [facility] Address: [address] [place] [address] Performed By: #### 5 7021-8 #### [facility] CLIA [id number] [address] [place] [address] [place] [facility] CLIA [id number] [address] [place] [address] [place] Nucleated RBC (Bld) [#/Vol] 10*3/uL Normal <0.01 [facility] Comment on above: Order Comment: Speci men Type: BLOOD SPECIMEN Ordering Facility: [facility] Address: [address] [place] [address] Performed By: #### 5 7021-8 #### [facility] CLIA [id number] [address] [place] [address] [place] [facility] CLIA [id number] [address] [place] [address] [place] Nucleated RBC/100 WBC (Bld) [Ratio] 0.0 /100 WBC Normal [facility] Comment on above: Order Comment: Speci men Type: BLOOD SPECIMEN Ordering Facility: [facility] Address: [address] [place] [address] Performed By: #### 5 7021-8 #### [facility] CLIA [id number] [address] [place] [address] [place] [facility] CLIA [id number] [address] [place] [address] [place] Platelet mean volume (Bld) [Entitic vol] 9.3 fL Normal 9.0-12.7 [facility] Comment on above: Order Comment: Speci men Type: BLOOD SPECIMEN Ordering Facility: [facility] Address: [address] [place] [address] Performed By: #### 5 7021-8 #### [facility] CLIA [id number] [address] [place] [address] [place] [facility] CLIA [id number] [address] [place] [address] [place] Platelets (Bld) [#/Vol] 199 10*3/uL Normal 150-400 [facility] Comment on above: Order Comment: Speci men Type: BLOOD SPECIMEN Ordering Facility: [facility] Address: [address] [place] [address] Performed By: #### 5 7021-8 #### [facility] CLIA [id number] [address] [place] [address] [place] [facility] CLIA [id number] [address] [place], [place] [address] [place] Platelets Estimate (Bld) [#/Vol] Adequate Normal [facility] Comment on above: Order Comment: Speci men Type: BLOOD SPECIMEN Ordering Facility: [facility] Address: [address] [place] [address] Performed By: #### 5 7021-8 #### [facility] CLIA [id number] [address] [place] [address] [place] [facility] CLIA [id number] [address] [place] [address] [place] Polychromasia LM Ql (Bld) Slight Normal [facility] Comment on above: Order Comment: Speci men Type: BLOOD SPECIMEN Ordering Facility: [facility] Address: [address] [place] [address] Performed By: #### 5 7021-8 #### [facility] CLIA [id number] [address] [place] [address] [place] [facility] CLIA [id number] [address] [place] [address] [place] RBC (Bld) [#/Vol] 4.36 10*6/uL Normal 3.90-5.20 [facility] Comment on above: Order Comment: Speci men Type: BLOOD SPECIMEN Ordering Facility: [facility] Address: [address] [place] [address] Performed By: #### 5 7021-8 #### [facility] CLIA [id number] [address] [place] [address] [place] [facility] CLIA [id number] [address] [place] [address] [place] RED CELL MORPH Reviewed: unremarkable Normal [facility] Comment on above: Order Comment: Speci men Type: BLOOD SPECIMEN Ordering Facility: [facility] Address: [address] [place] [address] Performed By: #### 5 7021-8 #### [facility] CLIA [id number] [address] [place] [address] [place] [facility] CLIA [id number] [address] [place] WBC (Bld) [#/Vol] 7.45 10*3/uL Normal 3.70-11.00 [facility] Comment on above: Order Comment: Speci men Type: BLOOD SPECIMEN Ordering Facility: [facility] Address: [address] [place], [place] [address] [address] Performed By: #### 5 7021-8 #### [facility] CLIA [id number] [address] [place] [address] LAB CLIA [id number] [address] [place] [address] [place] Examination level ultrasound on 12-18-2024 Indication First trimester anatomic survey Maternal obesity, BMI >30 Impression The patient is referred for a first trimester anatomy scan including nuchal translucency measurement as clinically indicated. - Single, live, intrauterine . - [place] rump length measurement is consistent with the [...] view: normal 4-chamber view with color: normal 9-naznob-acdghdv view: normal Abdominal cord insertion: normal Stomach: [...] Read By: Chiquita Wagner M.D. MATERNAL MEDICINE [facility] Radiology Study observation (narrative) [facility] HBV surface Ag Ser Qlon 06-0 HBV surface Ag Ql (S) Negative Normal Negative [facility] Comment on above: Order Comment: Speci men Type: BLOOD SPECIMEN Ordering Facility: [facility] Address: [address] [place] [address] Performed By: #### 3 1201-7, 12395-7, 5195-3 #### [facility] CLIA [id number] [address] [place] [address] [place] HCV Ab Ser Qlon 12-18-2024 HCV Ab Ql (S) Negative Normal Negative [facility] Comment on above: Order Comment: Speci men Type: BLOOD SPECIMEN Ordering Facility: [facility] Address: [address] [place] [address] Result Comment: The result suggests no evidence of infection with Hepatitis C virus. Should recent infection be suspected, repeat testing may be considered 4-6 weeks after this draw. Performed By: #### 5 5454-3 #### [facility] CLIA [id number] [address] [place] [address] [place] HIV 1+2 Ab IA Qlon HIV 1 and 2 Ab IA.rapid Nom (S/P/Bld) Normal [facility] Comment on above: Order Comment: Speci men Type: BLOOD SPECIMEN Ordering Facility: [facility] Address: [address] [place] [address] Result Comment: Test not indicated. Performed By: #### 3 1201-7, 17295-2, 5195-3 #### [facility] CLIA [id number] [address] [place] [address] [place] HIV 1+2 Ab+HIV1 p24 Ag IA Ql Non-Reactive Normal Nonreactive [facility] Comment on above: Order Comment: Speci men Type: BLOOD SPECIMEN Ordering Facility: [facility] Address: [address] [place] [address] Performed By: #### 3 1201-7, 00987-8, 5195-3 #### [facility] CLIA [id number] [address] [place] [address] [place] HIV immunoassay testing algorithm interpretation (S/P/Bld) [Interp] Normal [facility] Comment on above: Order Comment: Speci men Type: BLOOD SPECIMEN Ordering Facility: [facility] Address: [address] [place] [address] Result Comment: No e vidence of HIV-1 or HIV-2 infection. Should recent infection be suspected, repeat testing may be considered 2-3 weeks after this draw. [place] Rev. Code 3701.243(E): This information has been [...] or diagnoses. Performed By: #### 3 1201-7, 42196-4, 5195-3 #### [facility] CLIA [id number] [address] [place] [address] [place] HbA1c (Bld)on 12-18-2024 Average glucose Estimated from glycated hemoglobin (Bld) [Mass/Vol] 100 mg/dL Normal [facility] Comment on above: Order Comment: Speci men Type: BLOOD SPECIMEN Ordering Facility: [facility] Address: [address] [place] [address] Result Comment: eAG: (Estimated average glucose) is a calculated value from HgbA1c and is licensing representative of the average blood glucose level in the last 2-3 month period. Performed By: #### 5 5454-3 #### [facility] CLIA [id number] [address] [place] [address] [place] HbA1c (Bld) [Mass fraction] 5.1 % Normal 4.3-5.6 [facility] Comment on above: Order Comment: Speci men Type: BLOOD SPECIMEN Ordering Facility: [facility] Address: [address] [place] [address] Result Comment: [place] Diabetes Association guidelines indicate that patients with HgbA1c in the range 5.7-6.4% are at increased risk for development of diabetes, and intervention by lifestyle modification may be beneficial. HgbA1c greater or equal to 6.5% is considered diagnostic of diabetes. Performed By: #### 5 5454-3 #### [facility] CLIA [id number] [address] [place] [address] [place] RUBELLA IGG ANTIBODYon 12-18 RUBELLA IGG AB, QUAL Positive Normal Positive [facility] Comment on above: Order Comment: Speci men Type: BLOOD SPECIMEN Ordering Facility: [facility] Address: [address] [place] [address] Result Comment: The result suggests recent or past exposure to Rubella virus or history of Rubella vaccination. Positive result may also be seen due to presence of passively-transferred antibodies. Please correlate with patient's history. Performed By: #### R UBIGG #### [facility] CLIA [id number] [address] [place] [address] [place] Reagin and Treponema pallidu m IgG and IgM [Interp]on 12-18-2024 T. pallidum IgG+IgM IA Ql (S) Non-Reactive Normal Nonreactive [facility] Comment on above: Order Comment: Speci men Type: BLOOD SPECIMEN Ordering Facility: [facility] Address: [address] [place] [address] Performed By: #### 3 1201-7, 80429-8, 5195-3 #### [facility] CLIA [id number] [address] [place] [address] [place] Reagin+T pallidum IgG+IgM Se rPl-Impon 12-18-2024 Reagin and Treponema pallidum IgG and IgM [Interp] Cannot exclude recent Treponemal infection if specimen collected within 7-10 days after appearance of suspect lesions or 2-3 weeks after an exposure. Clinical correlation is required. Normal [facility] Comment on above: Order Comment: Speci men Type: BLOOD SPECIMEN Ordering Facility: [facility] Address: [address] [place] [address] Performed By: #### 3 1201-7, 07928-5, 5195-3 #### [facility] CLIA [id number] [address] [place] [address] [place] TYPE + SCREEN PRENATALon ABO A Normal [facility] Comment on above: Order Comment: Speci men Type: BLOOD SPECIMEN Ordering Facility: [facility] Address: [address] [place] [address] Performed By: #### 5 5454-3 #### [facility] CLIA [id number] [address] [place] [address] [place] Rh Nom (Bld) Positive Normal [facility] Comment on above: Order Comment: Speci men Type: BLOOD SPECIMEN Ordering Facility: [facility] Address: [address] [place] [address] Performed By: #### 5 5454-3 #### [facility] CLIA [id number] [address] [place] [address] [place] TYPE AND SCREEN EXPIRATION 12/21/2024 23:59 Normal [facility] Comment on above: Order Comment: Speci men Type: BLOOD SPECIMEN Ordering Facility: [facility] Address: [address] [place] [address] Performed By: #### 5 5454-3 #### [facility] CLIA [id number] [address] [place] [address] [place] PAP TESTOrdered By: Consuelo stallworth on 11-25-2024 Case Report Gynecologic Cytology Report Case: [id number] Authorizing Provider: Pao Powell APRN.CNM Collected: 11/17/2024 02:09 PM Ordering Location: OB/Gynecology Received: 11/17/2024 03:56 PM First Screen: Rubina Portillo, CT, ASCP Rescreen: Consuelo Palomo CT, ASCP Specimen: Pap Test, ThinPrep, Cervix [facility] Clinical History Routine Exam [facility] Interpretation Negative [facility] LMP 09/25/2024 [facility] Pap Disclaimer y2rfyROqFOSxc0ovHUZl bGFuZzEwMzNcZnRuYmpc nMLwAWmrcxHzOUdxv4Wk N7PzFxWcDZmoisDvMRVi LlmvtbugAKQcQBD2nvLu UZSmEElbQEIzAZldWq5j yFCbbOniTkRxRGZny7sb ruMGhqtvyDk9u8hmNCDr BqX8lGSfMMapS5qwuwUt bJIuQPTwVFx6xA78TSRs pU4vhLNrRMbsqbIaAxC3 AAagCQYpAcV0LGMjiAVg TFKiO3nwUJRdWWxiUKHk BGsoqJAtFMA9eOvpb4V7 bGVzaGVldHtcZjBcZnMy RrECa6NyGMs0qEbfA7Nk VUIvVeP6aPYgLJWcSAlq MZDkTRMsojA9bU08QVvk axL4qUQwy9Rvb49gv533 tL9shEFfPLY5MFLtBJOb zMLlYVKuQIA5TLLdvXQi D6azNYKeZL1zmmfaWHww MHknQFIbzVG7ZXDnnGUh I1SkLXHbJHulRVHeluj0 QyChDi6btFNacTnzAHzc m2ewm2glzZCrZwq6YDFl LtOcBlgsARnmi7Rcf2hi YQWfhm5pAUV7vAMkmEwa e0Q6pOSsBNUitJPymeFf NFMjBaN0IFugYS6ncv21 JMRqUNZ5xd3jlEJfzGmw miPswRMdATwqX5CvESJf x817AHWlH2DnSLSpk0D2 shGcQrJgSXSpqCU9peE4 ILYmOUj1oMRjnlN9abZs gHZiW7jurK2lBYGhTW1o oszlv3awDZpcOLvgWYGw jIH6coE3EWJrxXRfT1Bi jQ7yDSEgSMsfOFQufrj6 QiOaIs2pcMPvhJydTXie YmtwYWdlXHBnbmNvbnRc cGduZGVjXHBsYWluXHBs YWluXGYwXGZzMjRccWxc uEglfF2yHaCkHdAzNkqo PK5bGQUyX9pgdPOaUIQt KFNqY4oyZxJmbU2voBjq EVooyvX7WRAoCBRCDTCe M12xIUIltOCbKBXwM0Fi LG9xsazutWEvfPGms9Pk K5HbwbhgWXssL2ZcD3Yx MjFbXxRbz0XnemKuAGFu vjDwynQlsHh9xtXkD5Z4 xxY2eXTlIKNqsOKmS6Sf JF4glkmhuNMncKXkWCUs fFwgt7l3xH9bWMDbPQOn ZWVkIGZvciByZXNjcmVl lxpqFlDqjYSxQUMroL0d bmRlZCBpbnRlcnZhbHMs IGFuZCBjbGluaWNhbCBj k7BpDLbhyVesxe4ojRlv pZ6aClPlAmFhHvfjTA7f GEXbF0pbqTUhLNQtZIFm B7taCfPhiB2gnPieBRrz qyLnHYYast58 [facility] PAP Digital Content Manager Comment q4fetJWhXZXab8luWKIk bGFuZzEwMzNcZnRuYmpc wQLrBCfpjoNjWUpem8Cj Y9NnXbOiRAefhyIrXRTs OcdbxsmeELEgZPQ0dpDm CAWtSDzzSTCcFYarIr1x sBAonXjfIzErUIYog8fm eiTPenmeiOz3l9luCUHz XlH0sSOaBRpgY9byntEh pZZeIYGsIUw6vG46DBBa fE4oeYNnBNwqtfTmVfX2 ZTbnNHMiRzR8JKHltLPf OMIyP5thMKLzSTlsYUUo JSpffNEjMDM9cIxvr5H8 bGVzaGVldHtcZjBcZnMy KeOYf8UjXOc5oObhD3Km VYMrHfL9jVUsCMUeFVix HGAfULRlxfE2fL60UNgi dxV4rTNjs8Hmk15bq418 zN6mxTAsURV6NRAjAORv hYMhXXDjMUU1HMGjaHQb Q8ltNNKeHR1blrfnZQsq VPsiRXNxfFJ7PDOlfYBs V7ShGFGvVFhpIIYtovq3 FkBkGw4wjJZwsOkwDEfc e9tsh8wlvYDpHss7IPUw ByViWfnaEAuiw8Xwo8vx FHPhab5dESX7aWHsdZwf z7X3jTUfEIBcvLZakbTw YCEvZeQ6UXmuLM7dhw37 OBDiQDC6of9xuTSwzWyd voEwaEUfIZjsJ1XaTFZp g573YJSzR5UqDGGru3G8 neExNoVkMCHftHE8tpY3 FOCtSZf7lAEsgpC9leXd jWJzM3mioH5uGVWcUH2a ximqy5jlEIpaUWlkGSPx wMC8fhI3RNMuoORhR6Au yX7qTAKyPXgvQKMuzwa7 MeRbGs6xqCSmiCvpMWet YmtwYWdlXHBnbmNvbnRc cGduZGVjXHBsYWluXHBs YWluXGYwXGZzMjRccWxc mHlbbJ0sHwRqGgIiKpti PX7cHXUtE3khnOXlBRFv YWFvR0ezGrGyoH0wnMjt LKqihgZ9CHobTRlyveQc uFOydZ5bawDiOMGdTnSo biBhbmFseXplZCBieSB0 lHUgUJuixdRpGHFfKK7o U0jyFqXLcZD2GX4yXBGt WHI4sD3rFRQfPEMhxJQp kQ5wYXLrDLYkYDDcKAfi r9zzaFBoEQZ9yTdcqDMi h6Brx3EsBIBhHCBjJBMe voV8c7D2TMifTIJ3TZy6 GRMiscnyG9BfoZIci01i VGhpblByZXAgUGFwIHRl p9FvNcOrOa5dnQ53cC8r MXL7fN5cVMZnECUqkCSr eM5mAWWaWRntX5BlHYNy aWVsZHMgZnJvbSBldmVy eSBzbGlkZSBhcmUgcmV2 xHR6VQHeEhhaDGLssXZy cQVwiB1twH7zbFJ9Hspv bGFpblxmMVxmczIyXGxh cexzXHDvHIdyY8qyPcQp YMMcqQtrEWshf5AzBVPw XGZzMjJccGFyfX0= [facility] s9fgoRRdOZXat4gaPLMx bGFuZzEwMzNcZnRuYmpc dWMxIHtccnRmMVxhbnNp XGRlZmxhbmcxMDMzXGZ0 jnNnWDSlMUY6PMG4WpQc ZAChUxQxXAS0IVVao5yj m8BdtOCwqOOhRXevxLHv ivDgct35jDX2iL37MP6u NZBqUiJ0VPLhgxD4Rxt6 JSMdSSZyrNXlK007i1my y4dwoeRbiHK6hFbvMULz mowdKrF3CTydVWUnkmzf JFr5UVxfKVNnyEX8WCEt rMBjT7EwXHGlKD3boxq2 SPR5ZFrdQSIfXbO4HCHd yEYsZJEloDqaGUwxf376 MLU4GtGuNYPmk3K6mgLj FoNjLIClzZR0cwX7LTIk LX8jjotrb7cbFEokEBec PMDrajT3yrX2YNNiqVQs W3BcmK0bGHPuCG0brziv p9wqSMP7OKdkBKWxFNBo MGriJJKfMxGmJKOnmZ2t B6JtNKZcrVXwqsOrnTit J9v2r0GtK7cmg6keW8rx yTHmU6OaVY7kbrrynUVg Xy0hkFUwWOW2IaMDuNH1 RFztvtKyB9ukpdedFK8k kL1iH3ZrqLCfUArmd8Ru bQPxZQfzZf7yGZQyxucu NWp9VOGsUKNzzBnkSNO8 TJ43WZjbXWPvsvZWIvKn IENsZXZlbGFuZCBPSCA0 RMD7HYDjH1vBWAvnGvJF NSQ2EeN6UJlvNSJ8eBce cnRmMVxlcGljMTExMDJc RQ8kcKyjvYh6cLfdUEDv tgM1gVGhSLsaa3rpDBM6 k1skngvcWKZwQHzlJg2m dHRibHtcZjAgQXJpYWw7 aP81CUNdbU4tyYYdSEk0 XHBhcGVydzEyMjQwXHBh hHEymTJ7QLTqSH6skfps VRojHFnrSTKghjF3LUKz oHEaK0TxDUOdZP2tgqxj HAF4MAgyAWUeRSY2CgNh BBFkr8Xttiy5YmHdgAt7 t5vmFDHdSKSndIltx2rg EZA6XCPzxYIvT9qgkQ2u IGLuRH4ejgiep2qeCJht HKpzSYUdiJR6jbU6XEYt sWOeT0FncX0jGXFkMMCv fyVmhJbziC6iWeRnOEWG zBQxbu6eyKzjAIefpJTj xRZtiTH6lO3lMAWxtiDg bi9cRCOaoHawQ2ffbkYx UA6xEKNkwM8dOuVLIOad XFHscGZ0iwSSb7ZijOPz zFSKLOUglnB1g8F9PBG5 VKZlIVL3J1vnMNVWkuHc cLBqAUWrz5tiAOFpZATC tQI7FXhuueKaS2ibWAEv OTUgICBDTElBIyAzNkQw VeK4EVf2SYKlnzZqxEZx FOudKh9zPVWqcmogJUyu FTS4t6G6MIdblGHkgmPW ST3vcZYaqzfcFDAcoOJv fX0= [facility] Specimen Adequacy Satisfactory for interpretation. Transformation zone present [facility] POC PHARMACY CONSULTANT ULTRASOUNDon 11-26-19 Indication Viability; confirm cardiac activity [...] Read By: Pao Powell CNM MATERNAL MEDICINE [facility] BACTERIAL CULTURE, URINEOrde red By: Rose Mary Talavera on 11-18-2024 Bacteria identified Cx Nom (U) 10,000 -<50,000 CFU/ml Normal urogenital elke [facility] BACTERIAL VAGINOSIS NAATon 0 11-18-2024 Interpretation and review of laboratory results Normal [facility] Lactobacillus crispatus+gasseri+gene enii + Gardnerella vaginalis + Atopobium vaginae rRNA SUSIE+probe Ql (Vag fld) Not detected Not detected [facility] Bacteria identified Cx Nom ( U)Ordered By: Rose Mary Talavera on 11-18-2024 [facility] C. trachomatis+N. gonorrhoea e DNA SUSIE+probe Ql (Unsp spec)on 11-18-2024 C. trachomatis rRNA SUSIE+probe Ql (Unsp spec) Not detected Not detected [facility] Interpretation and review of laboratory results Normal [facility] N. gonorrhoeae rRNA SUSIE+probe Ql (Unsp spec) Not detected Not detected [facility] This FDA-approved assay has been modified to accept rectal swabs self-collected in a healthcare setting. For self-collected rectal swabs, the test was developed and its performance characteristics determined by the [facility]'s [facility] [place] ([facility]). It has not been cleared or approved by the FDA. [facility] is regulated under CLIA as qualified to perform high-complexity testing. This test is used for clinical purposes. It should not be regarded as investigational or for research. [facility] AMELIA/TRICHOMONAS NAATon 0 11-18-2024 C. glabrata RNA SUSIE+probe Ql (Vag fld) Not detected Not detected [facility] Amelia sp DNA SUSIE+probe Ql (Vag fld) Not detected Not detected [facility] Comment on above: The Amelia species group target includes C. albicans, C. tropicalis, C. parapsilosis, and C. dubliniensis. Interpretation and review of laboratory results Normal [facility] T. vaginalis DNA SUSIE+probe Ql (Unsp spec) Not detected Not detected [facility] BACTERIAL VAGINOSIS NAATon 0 11-17-2024 Lactobacillus crispatus+gasseri+gene enii + Gardnerella vaginalis + Atopobium vaginae rRNA SUSIE+probe Ql (Vag fld) Not detected Normal Not detected [facility] Comment on above: Order Comment: Speci men Type: BLOOD SPECIMEN Ordering Facility: [facility] Address: [address] [place] [address] Performed By: #### 5 5454-3 #### [facility] CLIA [id number] [address] [place] [address] [place] Bacteria Ur Culton Bacteria identified Cx Nom (U) ORGANISM ID: 1 10,000 -<50,000 CFU/ml Normal urogenital elke Normal [facility] Comment on above: Performed By: #### 5 5454-3 #### [facility] CLIA [id number] [address] [place] [address] [place] C. trachomatis+N. gonorrhoea e DNA SUSIE+probe Ql (Unsp spec)on 11-17-2024 C. trachomatis rRNA SUSIE+probe Ql (Unsp spec) Not detected Normal Not detected [facility] Comment on above: Order Comment: Speci men Type: BLOOD SPECIMEN Ordering Facility: [facility] Address: [address] [place] [address] Performed By: #### 5 5454-3 #### [facility] CLIA [id number] [address] [place] [address] [place] N. gonorrhoeae rRNA SUSIE+probe Ql (Unsp spec) Not detected Normal Not detected [facility] Comment on above: Order Comment: Speci men Type: BLOOD SPECIMEN Ordering Facility: [facility] Address: [address] [place] [address] Performed By: #### 5 5454-3 #### [facility] CLIA [id number] [address] [place] [address] [place] AMELIA/TRICHOMONAS NAATon 0 11-17-2024 C. glabrata RNA SUSIE+probe Ql (Vag fld) Not detected Normal Not detected [facility] Comment on above: Order Comment: Speci men Type: BLOOD SPECIMEN Ordering Facility: [facility] Address: [address] [place] [address] Performed By: #### 5 5454-3 #### [facility] CLIA [id number] [address] [place] [address] [place] Amelia sp DNA SUSIE+probe Ql (Vag fld) Not detected Normal Not detected [facility] Comment on above: Order Comment: Speci men Type: BLOOD SPECIMEN Ordering Facility: [facility] Address: [address] [place] [address] Result Comment: The Amelia species group target includes C. albicans, C. tropicalis, C. parapsilosis, and C. dubliniensis. Performed By: #### 5 5454-3 #### [facility] CLIA [id number] [address] [place] [address] [place] T. vaginalis DNA SUSIE+probe Ql (Unsp spec) Not detected Normal Not detected [facility] Comment on above: Order Comment: Speci men Type: BLOOD SPECIMEN Ordering Facility: [facility] Address: [address] [place] [address] Performed By: #### 5 5454-3 #### [facility] CLIA [id number] [address] [place] [address] [place] PAP TESTon 11-17-2024 ADEQUACY Normal [facility] Comment on above: Order Comment: Speci men Type: FLUID SPECIMEN Ordering Facility: [facility] Address: [address] [place] [address] Result Comment: Sati sfactory for interpretation. Transformation zone present Performed By: #### L [id number] #### [facility] CLIA [id number] [address] [place] [address] [place] CASE REPORT Normal [facility] Comment on above: Order Comment: Speci men Type: FLUID SPECIMEN Ordering Facility: [facility] Address: [address] [place] [address] Result Comment: Gyne cologic Cytology Report Case: [id number] Authorizing Provider: Pao Powell APRN.CNM Collected: 11/17/2024 02:09 PM Ordering Location: OB/Gynecology Received: 11/17/2024 03:56 PM First Screen: Rubina Portillo, CT, ASCP Rescreen: Consuelo Palomo CT, ASCP Specimen: Pap Test, ThinPrep, Cervix Performed By: #### L [id number] #### [facility] CLIA [id number] [address] [place] [address] [place] CLINICAL HISTORY, CYTOLOGY, CORPORATE CLAIMS EXAMINER Routine Exam Normal [facility] Comment on above: Order Comment: Speci men Type: FLUID SPECIMEN Ordering Facility: [facility] Address: [address] [place] [address] Performed By: #### L [id number] #### [facility] CLIA [id number] [address] [place] [address] [place] [address] [place] FINAL PERFORMING LAB Normal [facility] Comment on above: Order Comment: Speci men Type: FLUID SPECIMEN Ordering Facility: [facility] Address: [address] [place], [place] [id number] Result Comment: Tech nical component, highway patrol officer screening performed at: [facility], [facility] [address] [place] [address] CLIA: [id number] Diagnostic interpretation performed at: [facility], [address] [place] [address] CLIA# [id number] Parallel Computing Software Engineer: Florin Powers MD Performed By: #### L [id number] #### [facility] CLIA [id number] [address] [place] [address] [place] INTERPRETATION, CYTOLOGY, CORPORATE CLAIMS EXAMINER Normal [facility] Comment on above: Order Comment: Speci men Type: FLUID SPECIMEN Ordering Facility: [facility] Address: [address] [place] [address] Result Comment: Nega tive for intraepithelial lesion or malignancy. at 0943 EDT Performed By: #### L [id number] #### [facility] CLIA [id number] [address] [place], [place] [address] [place] LMP 09/25/2024 Normal [facility] Comment on above: Order Comment: Speci men Type: FLUID SPECIMEN Ordering Facility: [facility] Address: [address] [place], [place] [id number] Performed By: #### L [id number] #### [facility] CLIA [id number] [address] [place], [place] [address] [place] PAP DISCLAIMER COMMENT The Pap Smear is a screening test for cervical cancer. False negative results occur with all screening tests, emphasizing the need for rescreening at recommended intervals, and clinical correlation. Normal [facility] Comment on above: Order Comment: Speci men Type: FLUID SPECIMEN Ordering Facility: [facility] Address: [address] [place] [address] Performed By: #### L [id number] #### [facility] CLIA [id number] [address] [place] [address] [place] PAP PARACHUTE TAPER COMMENT This specimen has been analyzed by the ThinPrep Imaging System, an automated imaging and review system, which assists the laboratory in evaluating cells on ThinPrep Pap tests. Following automated imaging, selected gee from every slide are reviewed by a highway patrol officer. Normal [facility] Comment on above: Order Comment: Speci men Type: FLUID SPECIMEN Ordering Facility: [facility] Address: [address] [place] [address] Performed By: #### L [id number] #### [facility] CLIA [id number] [address] [place] [address] [place] POC PHARMACY CONSULTANT ULTRASOUNDon 11-18-19 Radiology Study observation (narrative) [facility] Basophil percentageOrdered B y: Pao Powell on 09-19-2022 WBC (Bld) [#/Vol] 15.3 10*3/uL 4.4-11.0 [facility] Blood erythrocytes count (nu mber/volume)Ordered By: Pao Powell on 09-19-2022 RBC (Bld) [#/Vol] 3.64 10*6/uL 4.2-5.4 [facility] Blood hemoglobin measurement (mass/volume)Ordered By: Pao Powell on 09-19-2022 Hemoglobin (Bld) [Mass/Vol] 11.0 g/dL 12.0-15.0 [facility] Blood platelet mean volumeOr dered By: Pao Powell on 09-19-2022 Platelet mean volume (Bld) [Entitic vol] 10.4 fL 6.2-12.0 [facility] CBC-Complete Blood Cnt No Di ffon 09-19-2022 Erythrocyte distribution width (RBC) [Ratio] 14.5 % Normal 11.6-14.6 [facility] Comment on above: Order Comment: Reaso n for Laboratory Test Day #1 Performed By: #### L 100.0500 #### [facility] [address] [place], [address] Hematocrit (Bld) [Volume fraction] 33.9 % Low 37-47 [facility] Comment on above: Order Comment: Reaso n for Laboratory Test Day #1 Performed By: #### L 100.0500 #### [facility] [address] [place], [address] Hemoglobin (Bld) [Mass/Vol] 11.0 g/dL Low 12.0-15.0 [facility] Comment on above: Order Comment: Reaso n for Laboratory Test Day #1 Performed By: #### L 100.0500 #### [facility] [address] [place], [address] MCH (RBC) [Entitic mass] 30.2 pg Normal 27.0-32.0 [facility] Comment on above: Order Comment: Reaso n for Laboratory Test Day #1 Performed By: #### L 100.0500 #### [facility] [address] [place], [address] MCHC (RBC) [Mass/Vol] 32.4 g/dL Normal 32-36 [facility] Comment on above: Order Comment: Reaso n for Laboratory Test Day #1 Performed By: #### L 100.0500 #### [facility] [address] [place], [address] MCV (RBC) [Entitic vol] 93.1 fL Normal 81-99 [facility] Comment on above: Order Comment: Reaso n for Laboratory Test Day #1 Performed By: #### L 100.0500 #### [facility] [address] [place], [address] Platelet mean volume (Bld) [Entitic vol] 10.4 fL Normal 6.2-12.0 [facility] Comment on above: Order Comment: Reaso n for Laboratory Test Day #1 Performed By: #### L 100.0500 #### [facility] [address] [place], [address] Platelets (Bld) [#/Vol] 232 10*3/uL Normal 150-450 [facility] Comment on above: Order Comment: Reaso n for Laboratory Test Day #1 Performed By: #### L 100.0500 #### [facility] [address] [place], [address] RBC (Bld) [#/Vol] 3.64 10*6/uL Low 4.2-5.4 [facility] Comment on above: Order Comment: Reaso n for Laboratory Test Day #1 Performed By: #### L 100.0500 #### [facility] [address] [place], [address] RDW SD 49.7 fl High 35.1-43.9 [facility] Comment on above: Order Comment: Reaso n for Laboratory Test Day #1 Performed By: #### L 100.0500 #### [facility] [address] [place], [address] WBC (Bld) [#/Vol] 15.3 10*3/uL High 4.4-11.0 [facility] Comment on above: Order Comment: Reaso n for Laboratory Test Day #1 Performed By: #### L 100.0500 #### [facility] [address] [place], [address] Determination of erythrocyte mean corpuscular volume (MCV)Ordered By: Pao Powell on 09-19-2022 MCV (RBC) [Entitic vol] 93.1 fL 81-99 [facility] Discharge Instructionon Discharge Instruction [facility] Medical Records Department [address] [place] [address] Instructions for Home/Discharge Instructions 09/19/22 0856 MR#: [id number] Acct: [id number] Name: MABEL DOMINGUEZ Rep #: [id number] : 2000 22 From: Yvonne Barone MD [...] 10 mg PO PRN PRN (Reason: allergies) [id number] c 1 TABLET tablet 1 tab PO DAILY magnesium citrate 100 mg Capsule 400 mg PO PRN PRN (Reason: Constipation) Referrals / Follow Up: Luann Dunn MD [Primary Care Provider] - Disposition Disposition (needs filled in before D/C Order can be placed): Home, Self Care 09/19/22 0858 Yvonne Barone MD CC: Dr. Luann Dunn MD Signed Normal [facility] Hematocrit Auto (Bld) [Volum e fraction]Ordered By: Pao Powell on 09-19-2022 Hematocrit (Bld) [Volume fraction] 33.9 % 37-47 [facility] Laboratory - Hematology and Cell countsOrdered By: Pao Powell on 09-19-2022 Erythrocyte distribution width (RBC) [Entitic vol] 49.7 fL 35.1-43.9 [facility] Erythrocyte distribution width (RBC) [Ratio] 14.5 % 11.6-14.6 [facility] MCH (RBC) [Entitic mass] 30.2 pg 27.0-32.0 [facility] MCHC Auto (RBC) [Mass/Vol]Or dered By: Pao Powell on 09-19-2022 MCHC (RBC) [Mass/Vol] 32.4 g/dL 32-36 [facility] Platelets bldOrdered By: Aleshia Powell on 09-19-2022 Platelets (Bld) [#/Vol] 232 10*3/uL 150-450 [facility] 12 Lead EKGon 09-18-2022 12 Lead EKG [facility] Cardiovascular Services [address] [place] [address] 12 Lead EKG 09/18/22 0848 MR#: [id number] Acct: [id number] Name: MABEL DOMINGUEZ Rep #: [id number] : 2000 22 From: Todd Montague MD [...] 42 BPM Confirmed by SHARON PETERSON, TODD ([id number]), editor & co founder [employer] ([id number]) on 09/19/2022 8:08:24 AM Referred By: Pao Powell Confirmed By:TODD MONTAGUE MD 09/19/22 0808 Date Todd Montague MD CC: MELODIE Powell; Dr. Luann Dunn MD Signed Normal [facility] Absolute lymphocyte countOrd ered By: Pao Powell on 09-18-2022 Lymphocytes Auto (Unsp spec) [#/Vol] 3.01 10*3/uL 0.83-4.51 [facility] Basophil percentageOrdered B y: Pao Powell on 09-18-2022 Basophils/100 WBC (Bld) 0.4 % 0-1 [facility] Bilirubin [Mass/Vol] 0.30 mg/dL 0.20-1.00 [facility] Comment on above: For patients on eltr ombopag therapy, use of Dimension Jewett TBIL is not recommended. Chloride [Moles/Vol] 110 mmol/L 98-107 [facility] Eosinophils/100 WBC (Bld) 0.6 % 0-5 [facility] Glucose [Mass/Vol] 154 mg/dL 74-106 [facility] Comment on above: Fasting Glucose resu lt greater than or equal to 126 mg/dL suggests DIABETES MELLITUS per A.D.A. criteria. Neutrophils (Bld) [#/Vol] 7.1 10*3/uL 2.0-7.7 [facility] Neutrophils/100 WBC (Bld) 64.9 % 47-70 [facility] Potassium [Moles/Vol] 3.8 mmol/L 3.5-5.1 [facility] Comment on above: Moderate Hemolysis, Result may be falsely increased. Protein [Mass/Vol] 6.4 g/dL 6.4-8.2 [facility] Sodium [Moles/Vol] 141 mmol/L 136-145 [facility] Blood lymphocytes/100 leukoc ytesOrdered By: Pao Powell on 03-06-2023 Lymphocytes/100 WBC (Bld) 27.5 % 19-41 [facility] Blood monocytes/100 leukocyt esOrdered By: Pao Powell on 09-18-2022 Monocytes/100 WBC (Bld) 5.8 % 0-10 [facility] CBC W/Diff, Automatedon - Absolute Lymph 3.01 X10 3/uL Normal 0.83-4.51 [facility] Comment on above: Performed By: #### Stephanie RICE, L100.0100 #### [facility] Laboratory [address] [place], [address] Absolute Neut 7.1 X10 3/uL Normal 2.0-7.7 [facility] Comment on above: Performed By: #### Stephanie RICE, L100.0100 #### [facility] [address] [place], [address] Basophils/100 WBC (Bld) 0.4 % Normal 0-1 [facility] Comment on above: Performed By: #### Stephanie RICE, L100.0100 #### [facility] [address] [place], [address] Eosinophils/100 WBC (Bld) 0.6 % Normal 0-5 [facility] Comment on above: Performed By: #### Stephanie RICE, L100.0100 #### [facility] [address] [place], [address] Erythrocyte distribution width (RBC) [Ratio] 14.5 % Normal 11.6-14.6 [facility] Comment on above: Performed By: #### Stephanie RICE, L100.0100 #### [facility] [address] [place], [address] Hematocrit (Bld) [Volume fraction] 36.9 % Low 37-47 [facility] Comment on above: Performed By: #### Stephanie RICE, L100.0100 #### [facility] [address] [place], [address] Hemoglobin (Bld) [Mass/Vol] 12.2 g/dL Normal 12.0-15.0 [facility] Comment on above: Performed By: #### Stephanie RICE, L100.0100 #### [facility] [address] [place], [address] IG% 0.800 Normal 0.0-0.9 [facility] Comment on above: Result Comment: IG% - Immature Granulocytes (promyelocytes, myelocytes and metamyelocytes) > 1% indicates that a LEFT SHIFT is Present. Performed By: #### Stephanie RICE, L100.0100 #### [facility] [address] [place], [address] Lymphocytes/100 WBC (Bld) 27.5 % Normal 19-41 [facility] Comment on above: Performed By: #### Stephanie RICE, L100.0100 #### [facility] [address] [place], [address] MCH (RBC) [Entitic mass] 30.4 pg Normal 27.0-32.0 [facility] Comment on above: Performed By: #### Stephanie RICE, L100.0100 #### [facility] [address] [place], [address] MCHC (RBC) [Mass/Vol] 33.1 g/dL Normal 32-36 [facility] Comment on above: Performed By: #### Stephanie RICE, L100.0100 #### [facility] [address] [place], [address] MCV (RBC) [Entitic vol] 92.0 fL Normal 81-99 [facility] Comment on above: Performed By: #### Stephanie RICE, L100.0100 #### [facility] [address] [place], [address] Monocytes/100 WBC (Bld) 5.8 % Normal 0-10 [facility] Comment on above: Performed By: #### Stephanie RICE, L100.0100 #### [facility] [address] [place], [address] Neutrophils/100 WBC (Bld) 64.9 % Normal 47-70 [facility] Comment on above: Performed By: #### Stephanie RICE, L100.0100 #### [facility] [address] [place], [address] Nucleated RBC (Bld) [#/Vol] 0 10*3/uL Normal 0-5 [facility] Comment on above: Performed By: #### Stephanie RICE, L100.0100 #### [facility] [address] [place], [address] Platelet mean volume (Bld) [Entitic vol] 10.2 fL Normal 6.2-12.0 [facility] Comment on above: Performed By: #### Stephanie RICE, L100.0100 #### [facility] [address] [place], [address] Platelets (Bld) [#/Vol] 270 10*3/uL Normal 150-450 [facility] Comment on above: Performed By: #### Stephanie RICE, L100.0100 #### [facility] [address] [place], [address] RBC (Bld) [#/Vol] 4.01 10*6/uL Low 4.2-5.4 [facility] Comment on above: Performed By: #### Stephanie RICE, L100.0100 #### [facility] [address] [place], [address] RDW SD 48.5 fl High 35.1-43.9 [facility] Comment on above: Performed By: #### Stephanie RICE, L100.0100 #### [facility] [address] [place], [address] WBC (Bld) [#/Vol] 11.0 10*3/uL Normal 4.4-11.0 [facility] Comment on above: Performed By: #### B TS, L100.0100 #### [facility] [address] [place], [address] Comprehensive Metabolic Prof ilon 09-18-2022 Albumin [Mass/Vol] 2.7 g/dL Low 3.2-5.0 [facility] Comment on above: Order Comment: Add o n Performed By: #### L 500.4050 #### [facility] [address] [place], [address] Albumin/Globulin [Mass ratio] 0.7 {ratio} Low 0.9-2.4 [facility] Comment on above: Order Comment: Add o n Performed By: #### L 500.4050 #### [facility] [address] [place], [address] ALK P 168 U/L High 45-117 [facility] Comment on above: Order Comment: Add o n Performed By: #### L 500.4050 #### [facility] [address] [place], [address] ALT [Catalytic activity/Vol] 14 U/L Normal 13-56 [facility] Comment on above: Order Comment: Add o n Performed By: #### L 500.4050 #### [facility] [address] [place], [address] AST [Catalytic activity/Vol] 28 U/L Normal 15-37 [facility] Comment on above: Order Comment: Add o n Result Comment: Mode rate Hemolysis, Result may be falsely increased. Performed By: #### L 500.4050 #### [facility] [address] [place], [address] Bilirubin [Mass/Vol] 0.30 mg/dL Normal 0.20-1.00 [facility] Comment on above: Order Comment: Add o n Result Comment: For patients on eltrombopag therapy, use of Dimension [place] TBIL is not recommended. Performed By: #### L 500.4050 #### [facility] [address] [place], [address] BUN/CRE 8.6 RATIO Low 10-20 [facility] Comment on above: Order Comment: Add o n Performed By: #### L 500.4050 #### [facility] [address] [place], [address] CA,Total 8.9 mg/dL Normal 8.5-10.1 [facility] Comment on above: Order Comment: Add o n Performed By: #### L 500.4050 #### [facility] [address] [place], [address] Chloride [Moles/Vol] 110 mmol/L High 98-107 [facility] Comment on above: Order Comment: Add o n Performed By: #### L [id number] #### [facility] [address] [place], [address] CO2 [Moles/Vol] 18.0 mmol/L Low 21.0-32.0 [facility] Comment on above: Order Comment: Add o n Performed By: #### L 500.4050 #### [facility] [address] [place], [address] Creatinine [Mass/Vol] 0.58 mg/dL Normal 0.55-1.02 [facility] Comment on above: Order Comment: Add o n Result Comment: The validity of the calculated GFR GFRAA in patients over 70 years has not been determined. Clinical correlation is essential. Performed By: #### L 500.4050 #### [facility] [address] [place], [address] ECRCL 118.29 ml/min Normal [facility] Comment on above: Order Comment: Add o n Performed By: #### L 500.4050 #### [facility] [address] [place], [address] EST GFR - AA 163 mL/min Normal >60 [facility] Comment on above: Order Comment: Add o n Result Comment: Afri can [place] GFR Calc Performed By: #### L 500.4050 #### [facility] [address] [place], [address] GAP 13 Normal 5-15 [facility] Comment on above: Order Comment: Add o n Performed By: #### L 500.4050 #### [facility] [address] [place], [address] GFR/1.73 sq M.predicted among non-blacks MDRD (S/P/Bld) [Vol rate/Area] 135 mL/min/{1.73_m2} Normal >60 [facility] Comment on above: Order Comment: Add o n Result Comment: Non- GFR Calc Performed By: #### L 500.4050 #### [facility] [address] [place], [address] Globulin (S) [Mass/Vol] 3.7 g/dL Normal 2.2-4.2 [facility] Comment on above: Order Comment: Add o n Performed By: #### L 500.4050 #### [facility] [address] [place], [address] Glucose [Mass/Vol] 154 mg/dL High 74-106 [facility] Comment on above: Order Comment: Add o n Result Comment: Fast ing Glucose result greater than or equal to 126 mg/dL suggests DIABETES MELLITUS per A.D.A. criteria. Performed By: #### L 500.4050 #### [facility] [address] [place], [address] Potassium [Moles/Vol] 3.8 mmol/L Normal 3.5-5.1 [facility] Comment on above: Order Comment: Add o n Result Comment: Mode rate Hemolysis, Result may be falsely increased. Performed By: #### L 500.4050 #### [facility] [address] [place], [address] Sodium [Moles/Vol] 141 mmol/L Normal 136-145 [facility] Comment on above: Order Comment: Add o n Performed By: #### L 500.4050 #### [facility] [address] [place], [address] T PROT 6.4 g/dL Normal 6.4-8.2 [facility] Comment on above: Order Comment: Add o n Performed By: #### L 500.4050 #### [facility] [address] [place], [address] Urea nitrogen [Mass/Vol] 5 mg/dL Low 7-18 [facility] Comment on above: Order Comment: Add o n Performed By: #### L 500.4050 #### [facility] [address] [place], [address] Echo Completeon 09-18-2022 Echo Complete [facility] Cardiovascular Services [address] [place] [address] Echo Complete 09/18/22 1041 MR#: [id number] Acct: [id number] Name: MABEL DOMINGUEZ Rep #: [id number] : 2000 22 From: Todd Montague MD [...] Dictated: 09/18/22 1041 Date Transcribed: 09/18/22 1111 Flower Arranger: Signed Normal [facility] H AND P Exam - OB/GYNon H&P Exam - POLICY ANALYST [facility] Medical Records Department [address] [place] [address] H P Exam - POLICY ANALYST 09/18/22 0856 MR#: [id number] Acct: [id number] Name: MABEL DOMINGUEZ Rep #: [id number] : 2000 22 From: Pao Powell CNM PCP: Dr. Luann Dunn MD Status:ADM IN Location: [id number] HPI - General General Date of Admission: 09/18/22 HPI Narrative MABEL DOMINGUEZ, is a 22 F who presents at 39w2d with induction of labor. 2 vessel umbilical cord. [facility] Medical History (Updated 09/18/22 @ 18:02 [...] / Consciousnes (more content not included)... Normal [facility] L509.8000on 09-18-2022 Syphilis Abs Non-Reactive Normal [facility] Comment on above: Performed By: #### L 509.8000 #### [facility] Laboratory [address] [place] [address], [id number] Laboratory - Chemistry and C hemistry - challengeOrdered By: Pao Powell on 09-18-2022 ALP [Catalytic activity/Vol] 168 U/L 45-117 [facility] ALT [Catalytic activity/Vol] 14 U/L 13-56 [facility] CO2 [Moles/Vol] 18.0 mmol/L 21.0-32.0 [facility] Globulin (S) [Mass/Vol] 3.7 g/dL 2.2-4.2 [facility] Urea nitrogen/Creatinine [Mass ratio] 8.6 mg/mg 10-20 [facility] Laboratory - Hematology and Cell countsOrdered By: Pao Powell on 09-18-2022 Immature granulocytes/100 WBC (Bld) 0.800 % 0.0-0.9 [facility] Comment on above: IG% - Immature Granu locytes (promyelocytes, myelocytes and metamyelocytes) > 1% indicates that a LEFT SHIFT is Present. Nucleated RBC/100 WBC (Bld) [Ratio] 0 % 0-5 [facility] No Panel InformationOrdered By: Pao Powell on 09-18-2022 Estimated Creatinine Clearance Calc 118.29 ml/min [facility] Estimated GFR (MDRD) Amer 163 mL/min >60 [facility] Comment on above: GFR Calc Estimated GFR (MDRD) Non-Af Amer 135 mL/min >60 [facility] Comment on above: Non- GFR Calc Operative Reporton 3 Operative Report [facility] Medical Records Department [address] [place] [address] Operative Report 09/18/22 1805 MR#: [id number] Acct: [id number] Name: MABEL DOMINGUEZ Rep #: [id number] : 2000 22 From: Pao Powell CNM PCP: Dr. Luann Dunn MD Status:ADM IN [id number] Assessment Plan (1) Vaginal delivery: (2) First [...] Powell; Dr. Luann Dunn MD Signed Normal [facility] Serum Treponema species anti body detectionOrdered By: Pao Powell on 09-18-2022 Treponema sp Ab Ql (S) Non-Reactive [facility] Serum or plasma albumin dmitry urement (mass/volume)Ordered By: Pao Powell on 09-18-2022 Albumin [Mass/Vol] 2.7 g/dL 3.2-5.0 [facility] Serum or plasma albumin/glob ulin mass ratioOrdered By: Pao Powell on 09-18-2022 Albumin/Globulin [Mass ratio] 0.7 {ratio} 0.9-2.4 [facility] Serum or plasma calcium dmitry urement (mass/volume)Ordered By: Pao Powell on 09-18-2022 Calcium [Mass/Vol] 8.9 mg/dL 8.5-10.1 [facility] Serum or plasma creatinine m easurement (mass/volume)Ordered By: Pao Powell on 09-18-2022 Creatinine [Mass/Vol] 0.58 mg/dL 0.55-1.02 [facility] Comment on above: The validity of the calculated GFR & GFRAA in patients over 70 years has not been determined. Clinical correlation is essential. Serum or plasma urea nitroge n measurement (mass/volume)Ordered By: Pao Powell on 09-18-2022 Urea nitrogen [Mass/Vol] 5 mg/dL 7-18 [facility] Thin prep Papanicolaou smear with manual screeningOrdered By: Pao Powell on 09-18-2022 Thin prep Papanicolaou smear with manual screening 28 U/L 15-37 [facility] Comment on above: Moderate Hemolysis, Result may be falsely increased. Thin prep Papanicolaou smear with manual screening 13 5-15 [facility] Type AND Screenon 09-18-2022 ABO and Rh group Nom (Bld) Blood group A Rh(D) positive Normal [facility] Comment on above: Order Comment: Labor Performed By: #### B TS, L100.0100 #### [facility] [address] [place], [place], [id number] URINE OB DIP B/Oon 3 Glucose Ql (U) Negative Neg mg/dL [facility] Protein.monoclonal (U) [Mass/Vol] Negative Neg mg/dL [facility] URINE OB DIP B/Oon 3 Glucose Ql (U) Negative Neg mg/dL [facility] Protein.monoclonal (U) [Mass/Vol] Negative Neg mg/dL [facility] No Panel Informationon 08-02 [facility] URINE OB DIP B/Oon 3 Glucose Ql (U) Negative Neg mg/dL [facility] Protein.monoclonal (U) [Mass/Vol] Negative Neg mg/dL [facility] URINE OB DIP B/Oon 3 Glucose Ql (U) Negative Neg mg/dL [facility] Protein.monoclonal (U) [Mass/Vol] Negative Neg mg/dL [facility] OBSTETRIC ULTRASOUND WHIon 1 [facility] URINE OB DIP B/Oon 2 Glucose Ql (U) Negative Neg mg/dL [facility] Protein.monoclonal (U) [Mass/Vol] Negative Neg mg/dL [facility] URINE OB DIP B/Oon 2 Glucose Ql (U) Negative Neg mg/dL [facility] Protein.monoclonal (U) [Mass/Vol] Negative Neg mg/dL [facility] Vital Signs Date Time Vital Sign Value Performing Clinician Faci lity 03-12-2025 14:29-0400 Body mass index (BMI) [Ratio] 33.11 kg/m2 [facility] Plotts SHALE PLANER OPERATOR.CNM Work Phone: [facility] 03-12-2025 14:290400 Body weight 82.1 kg Latasha Plotts SHALE PLANER OPERATOR.CNM Work Phone: [facility] 03-12-2025 14:290400 Diastolic blood pressure 60 mm[Hg] Latasha Plotts SHALE PLANER OPERATOR.CNM Work Phone: [facility] 03-12-2025 14:290400 Systolic blood pressure 110 mm[Hg] Latasha Plotts SHALE PLANER OPERATOR.CNM Work Phone: [facility] 02-12-2025 14:11-0400 Body mass index (BMI) [Ratio] 32.19 kg/m2 Pao Powell SHALE PLANER OPERATOR.CNM Work Phone: [facility] 02-12-2025 14:110400 Body weight 79.83 kg Pao Powell SHALE PLANER OPERATOR.CNM Work Phone: [facility] 02-12-2025 14:11-0400 Diastolic blood pressure 68 mm[Hg] Pao Powell SHALE PLANER OPERATOR.CNM Work Phone: [facility] 02-12-2025 14:110400 Systolic blood pressure 106 mm[Hg] Pao Powell SHALE PLANER OPERATOR.CNM Work Phone: [facility] 01-15-2025 14:26-0400 Body mass index (BMI) [Ratio] 31.75 kg/m2 Latasha Plotts SHALE PLANER OPERATOR.CNM Work Phone: [facility] 01-15-2025 14:260400 Body weight 78.74 kg Latasha Villarrealts SHALE PLANER OPERATOR.CNM Work Phone: [facility] 01-15-2025 14:26-0400 Diastolic blood pressure 64 mm[Hg] Latasha Plotts SHALE PLANER OPERATOR.CNM Work Phone: [facility] 01-15-2025 14:26-0400 Systolic blood pressure 118 mm[Hg] Latasha Plotts SHALE PLANER OPERATOR.CNM Work Phone: [facility] 12-18-2024 15:08-0400 Body mass index (BMI) [Ratio] 31.46 kg/m2 Latasha Plotts SHALE PLANER OPERATOR.CNM Work Phone: [facility] 12-18-2024 15:08-0400 Body weight 78.02 kg Latasha Villarrealts SHALE PLANER OPERATOR.CNM Work Phone: [facility] 12-18-2024 15:08-0400 Diastolic blood pressure 66 mm[Hg] Latasha Plotts SHALE PLANER OPERATOR.CNM Work Phone: [facility] 12-18-2024 15:08-0400 Systolic blood pressure 110 mm[Hg] Latasha Plotts SHALE PLANER OPERATOR.CNM Work Phone: [facility] 11-17-2024 13:05-0400 Body height 157.5 cm Pao Powell SHALE PLANER OPERATOR.CNM Work Phone: [facility] 11-17-2024 13:05-0400 Body mass index (BMI) [Ratio] 32.19 kg/m2 Pao Powell SHALE PLANER OPERATOR.CNM Work Phone: [facility] 11-17-2024 13:05-0400 Body weight 79.83 kg Pao Powell SHALE PLANER OPERATOR.CNM Work Phone: [facility] 11-17-2024 13:05-0400 Diastolic blood pressure 70 mm[Hg] Pao Powell SHALE PLANER OPERATOR.CNM Work Phone: [facility] 11-17-2024 13:05-0400 Systolic blood pressure 122 mm[Hg] Pao Powell SHALE PLANER OPERATOR.CNM Work Phone: [facility] 10-02-2022 13:16-0400 Body weight 78.02 kg Pao Powell SHALE PLANER OPERATOR.CNM Work Phone: [facility] 10-02-2022 13:16-0400 Diastolic blood pressure 62 mm[Hg] Pao Powell SHALE PLANER OPERATOR.CNM Work Phone: [facility] 10-02-2022 13:16-0400 Systolic blood pressure 108 mm[Hg] Paocarlos Powell APRN.CNM Work Phone: [facility] 09-19-2022 15:51-0500 Body temperature 97.9 [degF] Dr. Luann Dunn Work Phone: [facility] 09-19-2022 15:51-0500 Diastolic blood pressure 71 mm[Hg] Dr. Luann Dunn Work Phone: [facility] 09-19-2022 15:51-0500 Heart rate 84 /min Dr. Luann Dunn Work Phone: [facility] 09-19-2022 15:51-0500 Respiratory rate 14 /min Dr. Luann Dunn Work Phone: [facility] 09-19-2022 15:51-0500 SaO2% (BldA) [Mass fraction] 99 % Dr. Luann Dunn Work Phone: [facility] 09-19-2022 15:51-0500 Systolic blood pressure 123 mm[Hg] Dr. Luann Dunn Work Phone: [facility] 09-18-2022 07:24-0500 Body height 157.[address] Luann Dunn Work Phone: [facility] 09-18-2022 07:24-0500 Body mass index (BMI) [Ratio] 35.5 kg/m2 Dr. Luann Dunn Work Phone: [facility] 09-18-2022 07:24-0500 Body weight 88.[address] Luann Dunn Work Phone: [facility] 09-08-2022 15:50-0500 Body weight 87.09 kg Mora Kraus MD Work Phone[facility] [facility] 09-08-2022 15:50-0500 Diastolic blood pressure 64 mm[Hg] Mora Kraus MD Work Phone: [facility] 09-08-2022 15:50-0500 Systolic blood pressure 110 mm[Hg] Mora Kraus MD Work Phone: [facility] 08-31-2022 15:01-0500 Body weight 86.46 kg Nisreen Cardozo MD Work Phone: [facility] 08-31-2022 15:01-0500 Diastolic blood pressure 66 mm[Hg] Nisreen Cardozo MD Work Phone: [facility] 08-31-2022 15:01-0500 Systolic blood pressure 106 mm[Hg] Nisreen Cardozo MD Work Phone: [facility] 08-02-2022 14:59-0500 Body weight 84.55 kg Pao Powell SHALE PLANER OPERATOR.CNM Work Phone: [facility] 08-02-2022 14:59-0500 Diastolic blood pressure 62 mm[Hg] Pao Powell SHALE PLANER OPERATOR.CNM Work Phone: [facility] 08-02-2022 14:59-0500 Systolic blood pressure 102 mm[Hg] Pao Powell SHALE PLANER OPERATOR.CNM Work Phone: [facility] 07-18-2022 15:04-0500 Body weight 83.92 kg Latasha Plotts SHALE PLANER OPERATOR.CNM Work Phone: [facility] 07-18-2022 15:04-0500 Diastolic blood pressure 66 mm[Hg] Latasha Plotts SHALE PLANER OPERATOR.CNM Work Phone: [facility] 07-18-2022 15:04-0500 Systolic blood pressure 110 mm[Hg] Latasha Plotts SHALE PLANER OPERATOR.CNM Work Phone: [facility] 04-28-2022 14:12-0400 Body weight 78.93 kg Latasha Plotts SHALE PLANER OPERATOR.CNM Work Phone: [facility] 04-28-2022 14:12-0400 Diastolic blood pressure 62 mm[Hg] Latasha Plotts SHALE PLANER OPERATOR.CNM Work Phone: [facility] 04-28-2022 14:12-0400 Systolic blood pressure 120 mm[Hg] Latasha Plotts SHALE PLANER OPERATOR.CNM Work Phone: [facility] 03-30-2022 13:18-0400 Body weight 79.83 kg Nisreen Cardozo MD Work Phone: [facility] 03-30-2022 13:18-0400 Diastolic blood pressure 66 mm[Hg] Nisreen Cardozo MD Work Phone: [facility] 03-30-2022 13:18-0400 Systolic blood pressure 122 mm[Hg] Nisreen Cardozo MD Work Phone: [facility] 03-02-2022 13:10-0400 Body height 158 cm Latasha Plotbette SHALE PLANER OPERATOR.CNM Work Phone: [facility] 03-02-2022 13:10-0400 Body weight 80.29 kg Latasha Kendrick SHALE PLANER OPERATOR.CNM Work Phone: [facility] 03-02-2022 13:10-0400 Diastolic blood pressure 62 mm[Hg] Latasha Plotts SHALE PLANER OPERATOR.CNM Work Phone: [facility] 03-02-2022 13:10-0400 Systolic blood pressure 122 mm[Hg] Latasha Plotts SHALE PLANER OPERATOR.CNM Work Phone: [facility] Encounters Encounter Date Encounter Type Care Provider Facility Start: 05-21-2025 End: 05-21-2025 ambulatory LATASHA KENDRICK Facility:[facility] Start: 05-07-2025 End: 05-07-2025 ambulatory LATASHA KENDRICK Facility:[facility] Start: 04-21-2025 End: 04-21-2025 ambulatory YVONNE BARONE Facility:[facility] Start: 04-09-2025 End: 04-09-2025 ambulatory LATASHA KENDRICK Facility:[facility] Start: 03-12-2025 End: 03-12-2025 Patient encounter procedure Latasha Kendrick SHALE PLANER OPERATOR.CNM Work Phone: OB/Gynecology Comment on above: Screening for diabet es mellitus (Primary Dx); 24 weeks gestation of (HCC); Supervision of high risk in second trimester (HCC); Obesity in (HCC); Anxiety about health Start: 03-12-2025 End: 03-12-2025 [facility] LATASHA CRISTIANOBETTE Facility:[facility] Start: 02-12-2025 End: 02-12-2025 Patient encounter procedure Whi Tech 1 Senior Network Engineer [facility] [facility] Maternal Medicine Comment on above: Encounter for anatomic survey (HCC) (Primary Dx); 20 weeks gestation of (HCC); Obesity affecting in second trimester, unspecified obesity type (HCC) Supervision of high risk in second trimester (HCC) (Primary Dx); Obesity in (HCC); 20 weeks gestation of (HCC); Supervision of other high risk pregnancies, first trimester (HCC) Start: 02-12-2025 End: 02-12-2025 [facility] Facility:[facility] Start: 01-15-2025 End: 01-15-2025 Patient encounter procedure Latasha Cristianobette SHALE PLANER OPERATOR.JWM Work Phone: OB/Gynecology Comment on above: 16 weeks gestation o f (HCC) (Primary Dx); Supervision of other high risk pregnancies, first trimester (HCC); Obesity in (HCC) Start: 01-15-2025 End: [facility] Start: 12-18-2024 End: 12-18-2024 [facility] Facility:[facility] Start: 12-18-2024 End: 12-18-2024 Patient encounter procedure Latahsa Cristianobette SHALE PLANER OPERATOR.CNM Work Phone: OB/Gynecology Comment on above: Supervision of other high risk pregnancies, first trimester (HCC) (Primary Dx); 12 weeks gestation of (HCC); Nausea and vomiting in (HCC); Obesity in (HCC) Encounter for antena savita screening for malformation using ultrasound ([facility]) (Primary Dx); Encounter for (NT) nuchal translucency scan ([facility]); 12 weeks gestation of (HCC) Start: 12-18-2024 End: 12-18-2024 [facility] Facility:[facility] Start: 11-19-2024 End: 01-19-2025 Follow-up encounter [...] Start: 11-17-2024 End: 11-17-2024 ambulatory PAO SHERRY Facility:[facility] Start: 10-02-2022 End: 10-02-2022 Patient encounter procedure Pao Powell APRN.CNM Work Phone: OB/Gynecology Comment on above: Encounter for screen ing for maternal depression (Primary Dx) Start: 09-19-2022 ambulatory Pao Powell APRN.CNM Work Phone: OB/Gynecology Comment on above: Ob Delivery Note Start: 09-18-2022 ambulatory Todd Montague Facility:[facility] Start: 09-18-2022 Non-patient / Non-visit Dr. Raffy Dunn Work Phone: [facility] Start: 09-18-2022 End: 09-19-2022 Evaluation and management of inpatient Pao Powell Facility:[facility] Start: 09-18-2022 End: 09-19-2022 Evaluation and management of inpatient Dr. Luann Dunn Work Phone: [facility] Start: 09-08-2022 End: 09-08-2022 Patient encounter [...] evaluation of patient and report Nurse Pnob [facility] Work Phone: OB/Gynecology Comment on above: Supervision of rené mcfarland first , antepartum (Primary Dx) Procedures Date Procedure Procedure Detail Performing Clinician Start: 02-12-2025 Us preg uterus after 1st trimest / gestation Pao Powell APRN.CNM Work Phone: Start: 12-18-2024 Antibody screen JOSE MIGUEL KENDRICK Comment on above: Order Comment: Speci men Type: BLOOD SPECIMEN Ordering Facility: [facility] Address: [address] [place] [address] Performed By: #### [id number] #### [facility] CLIA [id number] [address] [place] [address] [place] [address] [place] Start: 12-18-2024 Us [...] ant neoplasm of cervix Cervical Cancer Screening [facility] Start: 05-21-2025 End: 05-21-2025 Patient encounter procedure 05/21/2025 2:30 PM EST Routine Office Visit OB/Gynecology [address] [place] [address] Latasha Kendrick APRN.CNM [address] [place] [address] OB OB/Gynecology Comment on above: OB Start: 05-07-2025 RSV Vaccine (1 - Ris k 1-dose series) RSV Vaccine (1 - Risk 1-dose series) [facility] Start: 05-07-2025 End: 05-07-2025 Patient encounter procedure 05/07/2025 11:15 AM EDT Routine Office Visit OB/Gynecology [address] [place] [address] Latasha Kendrick APRN.CNM [address] [place] [address] OB OB/Gynecology Comment on above: OB Start: 04-20-2025 End: 04-20-2025 Patient encounter procedure 04/20/2025 3:15 PM EDT Routine Office Visit OB/Gynecology [address] [place] [address] Latasha Kendrick APRN.CN [address] [place] [address] OB OB/Gynecology Comment on above: OB Start: 04-12-2025 End: 07-12-2025 ANEMIA REFLEX PANEL ANEMIA REFLEX PANEL Lab Routine 24 weeks gestation of (HCC) Supervision of high risk in second trimester (HCC) Obesity in (HCC) Expected: 04/12/2025 (Approximate), Expires: 07/12/2025 [facility] Comment on above: Expected: 04/12/2025 (Approximate), Expires: 07/12/2025 Start: 04-12-2025 End: 03-12-2026 GESTATIONAL GLUCOSE SCREEN, 1-HOUR, 50 GRAM, NON-FASTING GESTATIONAL GLUCOSE SCREEN, 1-HOUR, 50 GRAM, NON-FASTING Lab Routine Screening for diabetes mellitus 24 weeks gestation of (HCC) Supervision of high risk in second trimester (HCC) Obesity in (HCC) Expected: 04/12/2025 (Approximate), Expires: 03/12/2026 [facility] Work Phone: Comment on above: Expected: 04/12/2025 (Approximate), Expires: 03/12/2026 Start: 04-12-2025 End: 03-12-2026 SYPHILIS TREPONEMAL W/REFLEX SYPHILIS TREPONEMAL W/REFLEX Lab Routine 24 weeks gestation of ([facility]) Supervision of high risk in second trimester (HCC) Obesity in (HCC) Expected: 04/12/2025 (Approximate), Expires: 03/12/2026 [facility] Comment on above: Expected: 04/12/2025 (Approximate), Expires: 03/12/2026 Start: 04-09-2025 End: 04-09-2025 Patient encounter procedure 04/09/2025 2:30 PM EDT Routine Office Visit OB/Gynecology [address] [place] [address] Latasha Kendrick APRN.CN [address] [place] [address] OB OB/Gynecology Comment on above: OB Start: 04-09-2025 End: 04-09-2025 ambulatory 04/09/2025 2:15 PM EDT Results Only Frank Smiley [facility] [address] [place] [address] Glucose Lab [place] [place] [facility] Comment on above: Glucose Lab Start: 04-02-2025 End: 04-02-2025 ambulatory 04/02/2025 2:15 PM EDT Results Only Frank Smiley [facility] [address] [place] [address] Glucose Lab [place] [facility] Comment on above: Glucose Lab Start: 03-16-2025 Influenza vaccination [facility] Start: 03-12-2025 End: 03-12-2025 Patient encounter procedure 03/12/2025 2:30 PM EDT Routine Office Visit OB/Gynecology [address] [place] [address] Latasha Kendrick APRN.CNM [address] [place] [address] OB OB/Gynecology Comment on above: OB Start: 03-02-2025 PAP TESTING PAP TESTING [facility] Start: 02-12-2025 End: 02-12-2025 Patient encounter procedure Maternal Medicine Comment on above: Anatomy Anatomy/OB Start: 01-15-2025 End: 01-15-2025 Patient encounter procedure 01/15/2025 2:30 PM EDT Routine Office Visit OB/Gynecology [address] [place] [address] Latasha Kendrick APRN.CNM [address] [place] [address] OB OB/Gynecology Comment on above: OB Start: 12-18-2024 End: 12-18-2024 Patient encounter procedure Maternal Medicine Comment on above: nuchal OB Start: 11-17-2024 End: 02-16-2025 ANEMIA REFLEX PANEL ANEMIA REFLEX PANEL Lab Routine with uncertain dates, antepartum (HCC) Expected: 11/17/2024, Expires: 02/16/2025 [facility] Work Phone: Comment on above: Expected: 11/17/2024 , Expires: 02/16/2025 Start: 11-17-2024 End: 02-16-2025 Hemoglobin A1c in Blood HEMOGLOBIN A1C Lab Routine with uncertain dates, antepartum (HCC) Expected: 11/17/2024, Expires: 02/16/2025 [facility] Comment on above: Expected: 11/17/2024 , Expires: 02/16/2025 Start: 11-17-2024 End: 02-16-2025 Hepatitis B virus surface Ag [Presence] in Serum HEPATITIS B SURFACE ANTIGEN Lab Routine with uncertain dates, antepartum (HCC) Expected: 11/17/2024, Expires: 02/16/2025 [facility] Comment on above: Expected: 11/17/2024 , Expires: 02/16/2025 Start: 11-17-2024 End: 02-16-2025 Hepatitis C virus Ab [Presence] in Serum HEPATITIS C ANTIBODY IA WITH CONFIRMATION Lab Routine with uncertain dates, antepartum (HCC) Expected: 11/17/2024, Expires: 02/16/2025 [facility] Comment on above: Expected: 11/17/2024 , Expires: 02/16/2025 Start: 11-17-2024 End: 02-16-2025 HIV 1+2 Ab [Presence] in Serum or Plasma by Immunoassay HIV 1/2 COMBO WITH REFLEX TO DIFFERENTIATION Lab Routine with uncertain dates, antepartum (HCC) Expected: 11/17/2024, Expires: 02/16/2025 [facility] Comment on above: Expected: 11/17/2024 , Expires: 02/16/2025 Start: 11-17-2024 End: 11-17-2025 OBSTETRIC ULTRASOUND WHI OBSTETRIC ULTRASOUND WHI Anc Imaging Routine with uncertain dates, antepartum (HCC) Expected: 11/17/2024, Expires: 11/17/2025 [facility] Comment on above: Expected: 11/17/2024 , Expires: 11/17/2025 Start: 11-17-2024 End: 02-16-2025 RUBELLA IGG ANTIBODY RUBELLA IGG ANTIBODY Lab Routine with uncertain dates, antepartum (HCC) Expected: 11/17/2024, Expires: 02/16/2025 [facility] Comment on above: Expected: 11/17/2024 , Expires: 02/16/2025 Start: 11-17-2024 End: 02-16-2025 SYPHILIS TREPONEMAL W/REFLEX SYPHILIS TREPONEMAL W/REFLEX Lab Routine with uncertain dates, antepartum (HCC) Expected: 11/17/2024, Expires: 02/16/2025 [facility] Comment on above: Expected: 11/17/2024 , Expires: 02/16/2025 Start: 11-17-2024 End: 02-16-2025 TYPE + SCREEN TYPE + SCREEN Blood Bank Routine with uncertain dates, antepartum (HCC) Expected: 11/17/2024, Expires: 02/16/2025 [facility] Comment on above: Expected: 11/17/2024 , Expires: 02/16/2025 Start: 03-16-2024 Covid-19 Vaccine ( season) Covid-19 Vaccine ( season) [facility] Start: 03-02-2023 CHLAMYDIA SCREENING (18-24) CHLAMYDIA SCREENING (18-24) [facility] Start: 03-02-2023 GC (GONORRHEA) SCREE AKUA (18-24) GC (GONORRHEA) SCREENING (18-24) [facility] Start: 09-19-2022 Patient discharge [facility] Start: 09-19-2022 Consultation [facility] Start: 09-18-2022 Administration of medication [facility] Start: 09-18-2022 Application of ice collar, cap or bag [facility] Start: 09-18-2022 Catheterization of vein [facility] Start: 09-18-2022 Introduction of urin marva catheter [facility] Start: 09-18-2022 Measuring intake and output [facility] Start: 09-18-2022 Notification of physician [facility] Start: 09-18-2022 Procedure discontinued [facility] Start: 09-18-2022 Provision of activit y privileges [facility] Start: 09-18-2022 Vital signs measurements [facility] Start: 09-18-2022 [facility] Start: 09-18-2022 Admission procedure [facility] Start: 07-16-2022 DEPRESSION ASSESSMENT DEPRESSION ASS ESSMENT [facility] Start: 03-16-2022 Influenza vaccination INFLUENZA (#1) [facility] Start: 03-02-2022 End: 05-02-2022 CBC panel - Blood by Automated count CBC Lab Routine Supervision of other normal , antepartum Expected: 03/02/2022, Expires: 05/02/2022 [facility] Work Phone: Comment on above: Expected: 03/02/2022 , Expires: 05/02/2022 Start: 03-02-2022 End: 05-02-2022 Hepatitis B virus surface Ab [Presence] in Serum by Immunoassay HEP B SURF AG SCRN Lab Routine Supervision of other normal , antepartum Expected: 03/02/2022, Expires: 05/02/2022 [facility] Work Phone: Comment on above: Expected: 03/02/2022 , Expires: 05/02/2022 Start: 03-02-2022 End: 05-02-2022 Hepatitis C virus Ab [Presence] in Serum HEP C AB IA W/CONF SCRN Lab Routine Supervision of other normal , antepartum Expected: 03/02/2022, Expires: 05/02/2022 [facility] Work Phone: Comment on above: Expected: 03/02/2022 , Expires: 05/02/2022 Start: 03-02-2022 End: 05-02-2022 HIV 1+2 Ab [Presence] in Serum or Plasma by Immunoassay HIV 1 2 COMBO(AG/AB),WITH REFLEX TO DIFFERENTIATION Lab Routine Supervision of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 02/27/2022 2:35 PM EDT She will have ultrasound completed at [facility]. We can determine then if needs [...] to call patient back. documented in this encounterWexner Medical Center10-03-2019 History of Past illness Narrative* Problem Noted Date Resolved Date with care elsewhere, [facility] 04/17/2019 08/08/2019 Overview: 04/17/2019Patient is transferring care from [place] POLICY ANALYST. She is 29w5d . Last saw Dr Wynn about a month ago. Patient signed a release of records form at Dr Wynn' office yesterday. Patient states she has been treated for a yeast infection twice this in the 2nd trimester. TKRN documented as of this encounter (statuses as of 02/27/2022) [facility] of [facility] Narrative* Problem Noted Date Resolved Date with care elsewhere, [facility] 04/17/2019 08/08/2019 Overview: 04/17/2019Patient is transferring care from [place] [facility]ICY ANALY[facility]. She is 29w5d . Last saw Dr Wynn about a month ago. Patient signed a release of records form at Dr Wynn' office yesterday. Patient states she has been treated for a yeast infection twice this in the 2nd trimester. TKRN documented as of this encounter (statuses as of 03/02/2022) [facility] of [facility] Narrative* Problem Noted Date Resolved Date with care elsewhere, [facility] [place] 04/17/2019 08/08/2019 Overview: 04/17/2019Patient is transferring care from [place] POLICY ANALYST. She is 29w5d . Last saw Dr Wynn about a month ago. Patient signed a release of records form at Dr Wynn' office yesterday. Patient states she has been treated for a yeast infection twice this in the 2nd trimester. TKRN documented as of this encounter (statuses as of 03/02/2022) [facility] of [facility] illness Narrative* Problem Noted Date Resolved Date with care elsewhere, [facility] [place] 04/17/2019 08/08/2019 Overview: 04/17/2019Patient is transferring care from [place] POLICY ANALYST. She is 29w5d . Last saw Dr Wynn about a month ago. Patient signed a release of records form at Dr Wynn' office yesterday. Patient states she has been treated for a yeast infection twice this in the 2nd trimester. TKRN documented as of this encounter (statuses as of 03/30/2022) [facility] of [facility] Narrative* Problem Noted Date Resolved Date with care elsewhere, [facility] 04/17/2019 08/08/2019 Overview: 04/17/2019Patient is transferring care from [place] POLICY ANALYST. She is 29w5d . Last saw Dr Wynn about a month ago. Patient signed a release of records form at Dr Wynn' office yesterday. Patient states she has been treated for a yeast infection twice this in the 2nd trimester. TKRN documented as of this encounter (statuses as of 04/28/2022) [facility] of [facility] Narrative* Problem Noted Date [facility]olved [facility]2019 08/08/2019 Overview: 04/17/2019Patient is transferring care from [place] POLICY ANALYST. She is 29w5d . Last saw Dr Wynn about a month ago. Patient signed a release of records form at Dr Wynn' office yesterday. Patient states she has been treated for a yeast infection twice this in the 2nd trimester. TKRN documented as of this encounter (statuses as of 04/28/2022) [facility] Narrative* Problem Noted Date Resolved Date with care elsewhere, [facility] 04/17/2019 08/08/2019 Overview: 04/17/2019Patient is transferring care from [facility]. She is 29w5d . Last saw Dr Wynn about a month ago. Patient signed a release of records form at Dr Wynn' office yesterday. Patient states she has been treated for a yeast infection twice this in the 2nd trimester. TKRN documented as of this encounter (statuses as of 07/20/2022) [facility] Narrative* Problem Noted Date Resolved Date with care elsewhere, [facility] [place] [facility] 04/17/2019 08/08/2019 Overview: 04/17/2019Patient is transferring care from [place] [facility]ICY ANA[facility]. She is 29w5d . Last saw Dr Wynn about a month ago. Patient signed a release of records form at Dr Wynn' office yesterday. Patient states she has been treated for a yeast infection twice this in the 2nd trimester. TKRN documented as of this encounter (statuses as of 08/02/2022) [facility] Narrative* Problem Noted Date Resolved Date with care elsewhere, [facility] 04/17/2019 08/08/2019 Overview: 04/17/2019Patient is transferring care from [place] POLICY ANALYST. She is 29w5d . Last saw Dr Wynn about a month ago. Patient signed a release of records form at Dr Wnyn' office yesterday. Patient states she has been treated for a yeast infection twice this in the 2nd trimester. TKRN documented as of this encounter (statuses as of 08/02/2022) [facility] Narrative* Problem Noted Date Resolved Date with care elsewhere, [facility] 04/17/2019 08/08/2019 Overview: 04/17/2019Patient is transferring care from [facility]ICY ANALY[facility]. She is 29w5d . Last saw Dr Wynn about a month ago. Patient signed a release of records form at Dr Wynn' office yesterday. Patient states she has been treated for a yeast infection twice this in the 2nd trimester. TKRN documented as of this encounter (statuses as of 08/03/2022) [facility] Narrative* Problem Noted Date Resolved Date with care elsewhere, [facility] 04/17/2019 08/08/2019 Overview: 04/17/2019Patient is transferring care from [place] [facility]ICY ANALY[facility]. She is 29w5d . Last saw Dr Wynn about a month ago. Patient signed a release of records form at Dr Wynn' office yesterday. Patient states she has been treated for a yeast infection twice this in the 2nd trimester. TKRN documented as of this encounter (statuses as of 09/01/2022) [facility] Narrative* Problem Noted Date Resolved Date with care elsewhere, [facility] 04/17/2019 08/08/2019 Overview: 04/17/2019Patient is transferring care from [facility] POLICY ANALYST. She is 29w5d . Last saw Dr Wynn about a month ago. Patient signed a release of records form at Dr Wynn' office yesterday. Patient states she has been treated for a yeast infection twice this in the 2nd trimester. TKRN documented as of this encounter (statuses as of 09/08/2022) [facility] History of Past illness Narrative* Problem Noted Date Resolved Date with care elsewhere, [facility] [place] 04/17/2019 08/08/2019 Overview: 04/17/2019Patient is transferring care from [place] [facility]. She is 27w5d . Last saw Dr Wynn about a month ago. Patient signed a release of records form at Dr Wynn' office yesterday. Patient states she has been treated for a yeast infection twice this in the 2nd trimester. TKRN documented as of this encounter (statuses as of 09/19/2022) [facility] History of Past illness Narrative* Problem Noted Date Resolved Date with care elsewhere, [facility] [place] 04/17/2019 08/08/2019 Overview: 04/17/2019Patient is transferring care from [place] [facility]. She is 29w5d . Last saw Dr Wynn about a month ago. Patient signed a release of records form at Dr Wynn' office yesterday. Patient states she has been treated for a yeast infection twice this in the 2nd trimester. TKRN documented as of this encounter (statuses as of 10/02/2022) [facility] Supervision of normal first , antepartum- Primary [facility] Diagnosis Encounter for screening for malignant neoplasm of cervix- Primary Screening for malignant neoplasm of the cervix Supervision of other normal , antepartum 10 weeks gestation of state, incidental Cystocele, midline [facility] Diagnosis Late care- Primary Insufficient care [facility] Diagnosis 14 weeks gestation of - Primary state, incidental Supervision of other normal , antepartum [facility] Diagnosis Encounter for anatomic survey- Primary Obesity complicating , second trimester 18 weeks gestation of state, incidental 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 [facility] Diagnosis 18 weeks gestation of - Primary state, incidental 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 [facility]* Diagnosis 30 weeks gestation of - Primary state, incidental [facility] Diagnosis 32 weeks gestation of - Primary state, incidental [facility] Diagnosis 32 weeks gestation of - Primary state, incidental [facility] Diagnosis 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 Obesity in Obesity complicating , childbirth, or the puerperium, unspecified as to episode of care or not applicable 32 weeks gestation of state, incidental [facility]* Diagnosis 36 weeks gestation of - Primary state, incidental Encounter for supervision of other normal in third trimester History of herpes genitalis Personal history of other infectious and parasitic disease [facility]* Diagnosis 37 weeks gestation of - Primary state, incidental documented in this encounter [facility] note* Diagnosis Onset Date Resolution Status 39 weeks gestation of acute Elective induction of labor planned acute First degree laceration of p erineum during delivery, acute History of depression acute History of herpes genitalis acute depression acute Two vessel umbilical cord ac merry Vaginal delivery [facility] Work Phone: Evaluation note* Diagnosis Encounter for screening for maternal depression- Primary [facility]* Diagnosis Supervision of other high risk [...] and parasitic disease [facility] Diagnosis Supervision of other high risk pregnancies, first trimester (HCC)- Primary 12 weeks gestation of ([facility]) state, incidental Nausea and vomiting in (HCC) Unspecified vomiting of , unspecified as to episode of care Obesity in (HCC) Obesity complicating , childbirth, or the puerperium, unspecified as to episode of care or not applicable documented in this encounter [facility] note* Diagnosis Encounter for screening for malformation using ultrasound ([facility])- Primary Encounter for (NT) nuchal translucency scan ([facility]) Other specified screening 12 weeks gestation of ([facility]) state, incidental documented in this encounter [facility] note* Diagnosis 16 weeks gestation of ([facility])- Primary state, incidental Supervision of other high risk pregnancies, first trimester ([facility]) Obesity in ([facility]) Obesity complicating , childbirth, or the puerperium, unspecified as to episode of care or not applicable documented in this encounter [facility] note* Diagnosis Encounter for anatomic survey ([facility])- Primary Encounter for anatomic survey 20 weeks gestation of ([facility]) state, incidental Obesity affecting in second trimester, unspecified obesity type ([facility]) documented in this encounter [facility] note* Diagnosis Supervision of high risk in second trimester (HCC)- Primary Unspecified high-risk Obesity in (HCC) Obesity complicating , childbirth, or the puerperium, unspecified as to episode of care or not applicable 20 weeks gestation of ([facility]) state, incidental Supervision of other high risk pregnancies, first trimester ([facility]) documented in this encounter [facility] note* Diagnosis Screening for diabetes mellitus- Primary 24 weeks gestation of ([facility]) state, incidental Supervision of high risk in second trimester ([facility]) Unspecified high-risk Obesity in ([facility]) Obesity complicating , childbirth, or the puerperium, unspecified as to episode of care or not applicable Anxiety about health documented in this encounter [facility] for referral (narrative)* Diagnostic Procedure Only (Routine) - Pending Review Specialty Diagnoses / Procedures Referred By Contangelic t Referred To Contact [facility] Diagnoses Supervision of other normal , antepartum Procedures OBSTETRIC ULTRASOUND WHI US PREG UTERUS AFTER 1ST TRIMEST 1/ Latasha Kendrick APRN.CNM [address] [place] [address] [facility] [address] [place] [address] Referral ID Status Reason Start Date Expiration Date Visits Requested Visits Authorized [id number] Pending Review Auto-Generat ed Referral 03/02/2022 03/02/2023 1 1 [facility] for referral (narrative)* Diagnostic Procedure Only (Routine) - Closed Specialty Diagnoses / Procedures Referred By Contac t Referred To Contact [facility] Diagnoses 32 weeks gestation of Procedures OBSTETRIC ULTRASOUND WHI US PREG UTERUS AFTER 1ST TRIMEST GESTATION Latasha Kendrick APRN.CNM [address] [place] [address] [facility] [address] [place] [address] Referral ID Status Reason Start Date Expiration Date V isits Requested Visits Authorized [id number] Closed Auto-Generate d Referral 08/02/2022 08/02/2023 1 1 [facility] for visit Narrative* Diagnostic Procedure Only (Routine) - Closed Specialty Diagnoses / Procedures Referred By Contac t Referred To Contact [facility] Diagnoses with uncertain dates, antepartum (HCC) Procedures OBSTETRIC ULTRASOUND WHI US PREG UTERUS AFTER 1ST TRIMEST GESTATION Pao Powell APRN.CNM [address] [place] [address] Phone: tel: fax: [facility] [address] [place] [address] Referral ID Status Reason Start Date Expiration Date V isits Requested Visits Authorized [id number] Closed Auto-Generate d Referral 11/17/2024 11/17/2025 1 1 [facility] Chief Complaint and Reason for Visit Chief [...] No September 18, 2022 9:21am Power of Production Packager No September 18 9:21am Summary Purpose Family [...] or prosecute any alcohol or drug abuse patient.[facility] the event this information is protected by the Federal Confidentiality of Alcohol and Drug Abuse Patient Records regulations: The Federal rules restrict any use of the information to criminally investigate or prosecute any alcohol or drug abuse patient.[facility] the event this information is protected by the Federal Confidentiality of Alcohol and Drug Abuse Patient Records regulations: The Federal rules restrict any use of the information to criminally investigate or prosecute any alcohol or drug abuse patient.[facility] the event this information is protected by the Federal Confidentiality of Alcohol and Drug Abuse Patient Records regulations: The Federal rules restrict any use of the information to criminally investigate or prosecute any alcohol or drug abuse patient.[facility] the event this information is protected by the Federal Confidentiality of Alcohol and Drug Abuse Patient Records regulations: The Federal rules restrict any use of the information to criminally investigate or prosecute any alcohol or drug abuse patient.[facility] the event this information is protected by the Federal Confidentiality of Alcohol and Drug Abuse Patient Records regulations: The Federal rules restrict any use of the information to criminally investigate or prosecute any alcohol or drug abuse patient.[facility] the event this information is protected by the Federal Confidentiality of Alcohol and Drug Abuse Patient Records regulations: The Federal rules restrict any use of the information to criminally investigate or prosecute any alcohol or drug abuse patient.[facility] the event this information is protected by the Federal Confidentiality of Alcohol and Drug Abuse Patient Records regulations: The Federal rules restrict any use of the information to criminally investigate or prosecute any alcohol or drug abuse patient.[facility] the event this information is protected by the Federal Confidentiality of Alcohol and Drug Abuse Patient Records regulations: The Federal rules restrict any use of the information to criminally investigate or prosecute any alcohol or drug abuse patient.[facility] the event this information is protected by the Federal Confidentiality of Alcohol and Drug Abuse Patient Records regulations: The Federal rules restrict any use of the information to criminally investigate or prosecute any alcohol or drug abuse patient.[facility] the event this information is protected by the Federal Confidentiality of Alcohol and Drug Abuse Patient Records regulations: The Federal rules restrict any use of the information to criminally investigate or prosecute any alcohol or drug abuse patient.[facility] the event this information is protected by the Federal Confidentiality of Alcohol and Drug Abuse Patient Records regulations: The Federal rules restrict any use of the information to criminally investigate or prosecute any alcohol or drug abuse patient.[facility] the event this information is protected by the Federal Confidentiality of Alcohol and Drug Abuse Patient Records regulations: The Federal rules restrict any use of the information to criminally investigate or prosecute any alcohol or drug abuse patient.[facility] the event this information is protected by the Federal Confidentiality of Alcohol and Drug Abuse Patient Records regulations: The Federal rules restrict any use of the information to criminally investigate or prosecute any alcohol or drug abuse patient.[facility] the event this information is protected by the Federal Confidentiality of Alcohol and Drug Abuse Patient Records regulations: The Federal rules restrict any use of the information to criminally investigate or prosecute any alcohol or drug abuse patient.[facility] the event this information is protected by the Federal Confidentiality of Alcohol and Drug Abuse Patient Records regulations: The Federal rules restrict any use of the information to criminally investigate or prosecute any alcohol or drug abuse patient.[facility] the event this information is protected by the Federal Confidentiality of Alcohol and Drug Abuse Patient Records regulations: The Federal rules restrict any use of the information to criminally investigate or prosecute any alcohol or drug abuse patient.[facility] the event this information is protected by the Federal Confidentiality of Alcohol and Drug Abuse Patient Records regulations: The Federal rules restrict any use of the information to criminally investigate or prosecute any alcohol or drug abuse patient.[facility] the event this information is protected by the Federal Confidentiality of Alcohol and Drug Abuse Patient Records regulations: The Federal rules restrict any use of the information to criminally investigate or prosecute any alcohol or drug abuse patient.[facility] the event this information is protected by the Federal Confidentiality of Alcohol and Drug Abuse Patient Records regulations: The Federal rules restrict any use of the information to criminally investigate or prosecute any alcohol or drug abuse patient.[facility] the event this information is protected by the Federal Confidentiality of Alcohol and Drug Abuse Patient Records regulations: The Federal rules restrict any use of the information to criminally investigate or prosecute any alcohol or drug abuse patient.[facility] the event this information is protected by the Federal Confidentiality of Alcohol and Drug Abuse Patient Records regulations: The Federal rules restrict any use of the information to criminally investigate or prosecute any alcohol or drug abuse patient.[facility] Reason for Visit (unrecogniz ed section and content) Reason Comments US Specialty Diagnoses / Procedures Referred By Praneeth t Referred To [facility] Diagnoses with uncertain dates, antepartum (HCC) Procedures OBSTETRIC ULTRASOUND WHI US PREG UTERUS AFTER 1ST TRIMEST GESTATION Pao Powell APRN.CNM [address] [place] [address] Phone: tel: fax: [facility] [address] [place] [address] Referral ID Status Reason Start Date Expiration Date V isits Requested Visits Authorized [id number] Closed Auto-Generate d Referral 11/17/2024 11/17/2025 1 1 Reason Onset Date Comments Care 08/31/2022 Specialty Diagnoses / Procedures Referred By Contac t Referred To Contact POLICY ANALYST Diagnoses OBGYN visit Procedures OFFICE/OUTPATIENT NEW MODERATE MDM 45-59 MINUTES OB VISIT Self Senior Network Engineer [employer] [address] [place] [address] Referral ID Status Reason Start Date Expiration Date V isits Requested Visits Authorized [id number] Closed Patient Cleared - [employer] 05/26/2022 08/24/2022 30 30 Referral ID Status Reason Start Date Expiration Date Visits Requested Visits Authorized [id number] Authorized Patient Cleared - [employer] 08/24/2022 30 30 Reason Onset Date Comments Care 04/28/2022 Specialty Diagnoses / Procedures Referred By Contac t Referred To Contact [facility] Diagnoses ob visits Procedures Ob visit Self [facility] [address] [place] [address] Referral ID Status Reason Start Date Expiration Date Visits Requested Visits Authorized [id number] Authorized Patient Cleared - [employer] 03/07/2022 06/05/2022 99 99 Reason Comments Care Specialty Diagnoses / Procedures Referred By Contac t Referred To Contact POLICY ANALYST Diagnoses PNOB Procedures I NURSE Carmine MD Wstr, Nurse [facility] [address] [place] [address] Referral ID Status Reason Start Date Expiration Date V isits Requested Visits Authorized [id number] Closed Financial Clearance Required - Self Pay Patient Cleared - [employer] 02/27/2022 05/28/2022 1 1 Reason Comments Initial OB Visit Specialty Diagnoses / Procedures Referred By Contac t Referred To Contact POLICY ANALYST Diagnoses New Ob visit patietn currently 8 1/2 weeks needs appointment soone Procedures N OB visit Pao Powell, SHALE PLANER OPERATOR.CNM [address] [place] [address] Senior Network Engineer [employer] [address] [place] [address] Referral ID Status Reason Start Date Expiration Date V isits Requested Visits Authorized [id number] Closed Patient Cleared [facility] 02/13/2022 05/14/2022 1 1 Reason Comments late care Reason Onset Date Comments Care 03/30/2022 Specialty Diagnoses / Procedures Referred By Contac t Referred To Contact POLICY ANALYST Diagnoses LMP UNKNOWN 10 WEEKS Procedures NEW [facility] OB 1ST EXAM Pao Powell, SHALE PLANER OPERATOR.CNM [address] [place] [address] Latasha Kendrick SHALE PLANER OPERATOR.CNM [address] [place] [address] Referral ID Status Reason Start Date Expiration Date V isits Requested Visits Authorized [id number] Closed Patient Cleared [facility] 03/02/2022 07/15/2022 99 1 Reason Onset Date Comments Care 07/18/2022 Specialty Diagnoses / Procedures Referred By Contac t Referred To Contact POLICY ANALYST Diagnoses OBGYN visit Procedures OB VISIT Self Senior Network Engineer [employer] [address] [place] [address] Reason Comments Orders Reason Onset Date Comments Care 08/02/2022 Reason Onset Date Comments Care 09/08/2022 Specialty Diagnoses / Procedures Referred By Contac t Referred To Contact POLICY ANALYST Diagnoses Procedures FOLLOW-UP/REASSESSMENT Nisreen Cardozo MD [address] [place] [address] Senior Network Engineer [employer] [address] [place] [address] Referral ID Status Reason Start Date Expiration Date Visits Requested Visits Authorized [id number] Authorized Patient Cleared - [facility] [place] 08/31/2022 09/12/2022 6 6 Reason Comments Ob Delivery Note Specialty Diagnoses / Procedures Referred By Contac t Referred To Contact POLICY ANALYST APPT[facility] MAIN Diagnoses n/a Procedures postportum visit Self Foundation Coordinator [employer] [facility] [address] [place] [address] Referral ID Status Reason Start Date Expiration Date V isits Requested Visits Authorized [id number] Denied Patient Cleared - [facility] 09/21/2022 12/20/2022 1 0 Reason Comments Initial [...] section and content) DATE CREATED AUTHOR 10/02/2022 [facility] DATE CREATED AUTHOR AUTHOR'S ORGANIZ ATION 05/25/2025 [facility] FOR RECORDS PERTAINING TO PATIENTS WHO ARE [...] BE BASED ON THE PRIMARY CLINICAL RECORDS. [email or web address] provides no warranty or guarantee of the accuracy or completeness of information in this document.
[2025-06-25] MEDS: Oxytocin 15 Units/NS 250ml 15 UNITS/250 ML IV.SOLN 2 UNITS IV (08:00)
[2025-06-25 08:07] LABS: Hematocrit 34.2 % (37-47); Hemoglobin 11.3 g/dL (12.0-15.0); Immature Granulocytes Count 0.050 X10^3/uL (0.0-0.0); Mean Corp Hgb Conc 33.0 g/dL (32-36); Mean Corpuscular Volume 89.8 fL (81-99); Mean Platelet Vol. 9.8 fl (6.2-12.0); NRBC Flagged by Analyzer 0 % (0-5); Platelet Count 296 K/mm3 (150-450); RBC Distribution Width CV 14.1 % (11.6-14.6); RBC Distribution Width SD 46.0 fl (35.1-43.9); Red Blood Count 3.81 M/mm3 (4.2-5.4); White Blood Count 9.3 K/mm3 (4.4-11.0)
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
[2025-06-25 08:36] LABS: Syphilis Antibodies Nonreactive (Nonreactive)
[2025-06-25] MEDS: Lactated Ringers 1,000 ML 999 ML IV (10:42)
[2025-06-25] MEDS: fentaNYL-bupivacaine (epidural) 100 ML BAG EPIDURAL (11:36)
--- NOTE | 2025-06-25 13:03 | PCM.PN.BLA ---
Progress Note Pt comfortable with epidural. Assessment & Plan Assessment/Plan (1) History of anxiety: (2) Gestational diabetes: (3) Obesity affecting : (4) Encounter for planned induction of labor: PLAN: Pt comfortable with epidural. Cvx 5/60/-2 head well applied. AROM performed in usual sterile fashion with return of clear fluid, and IUPC placed after patient consent. (5) 40 weeks gestation of :
--- NOTE | 2025-06-25 15:50 | EX.PCM.OBVAG ---
Assessment & Plan (1) Vaginal delivery: (2) Second degree perineal laceration: Vaginal Delivery Maternal Presentation Maternal Presentation: Medically Indicated Induction Type of Induction: Pitocin and Amniotomy Vaginal Delivery Information Procedure Performed: Spontaneous Vaginal Delivery Surgeon/Practitioner: Nisreen Cardozo Date of Procedure: 06/25/25 Pre-Procedure Diagnosis: 39 week gestation, A1GDM with increasing blood sugars, obesity in Post-Procedure Diagnosis: As above Type of anesthesia: Epidural Special Medications: None Estimated Blood Loss: 200 mL Fluids Replaced: N/A Findings Description of procedure: The patient was complete and pushing. A tight perineal band was noted. A small first-degree episiotomy was created with patient consent after discussion. Once the episiotomy was created, the head was delivered in MEMO position. A loose nuchal cord x 1 was reduced. The anterior shoulder was delivered with gentle downward traction followed by the posterior shoulder and body without any excessive traction, force, or delay. A vigorous viable male infant was delivered atraumatically and placed on the maternal abdomen. The cord was clamped after a 60 second delay. The cord was cut by the father the baby. The placenta delivered spontaneously and was noted to be normal-appearing and intact with a three-vessel cord. Pitocin was running. Fundus was firm and bleeding hemostatic. 3-0 Vicryl and 2-0 Vicryl were used to repair a second-degree perineal laceration in usual fashion. A vaginal sweep was performed. Sharp and sponge counts were correct. Procedure findings: VMI Second degree perineal laceration Clear fluid Normal appearing placenta Presentation: Vertex Amniotic Membrane Rupture Type: Artificial Amniotic Fluid Description: Clear Placental Delivery Description: Spontaneous Specimen collected: No Cord Vessel Description: 3 Vessels Cord Entanglement: Around neck x 1, loose Nuchal Cord Compression: Without compression A Gender: Male (1 minute): 8 (5 minute): 9 Delayed Cord Clamping: Yes Industrial Relations Counselor shellfish harvester: No Post Vaginal Deli Medications given after delivery: IV Pitocin Episiotomy Description: 1st degree Laceration: 2nd degree Complication Complications: No
[2025-06-25] MEDS: Oxytocin 15 Units/NS 250ml 15 UNITS/250 ML IV.SOLN 83 UNITS IV (15:55)
[2025-06-26] VITALS (12 sets, daily range): BP systolic 116–133; BP diastolic 59–67; PULSE 78–97; RESP 15–16; TEMP 36.2–36.6; O2SAT 92–96
--- NOTE | 2025-06-26 08:56 | PCM.PN.OB ---
Subjective Subjective Doing well per patient and nursing staff. Ambulating and taking PO without difficulty. Voiding and passing flatus. Pain controlled. , services for assistance. Denies headache, visual changes, chest pain, shortness of breath, leg pain or increased bleeding. Lochia normal. Objective Data Objective Data Vital Signs: Vital Signs Temp Pulse Resp BP Pulse Ox O2 Del Method 97.1 F L 94 16 117/59 L 96 Room Air 06/26/25 03:06 06/26/25 08:37 06/26/25 03:06 06/26/25 08:35 06/26/25 08:37 06/26/25 03:06 Oxygen Delivery Method Room Air Weight: 192 lb 2 oz Body Mass Index (BMI) 35.1 Intake & Output: Intake and Output for Last 24 Hours 06/24/25 06/25/25 06/26/25 23:59 23:59 23:59 Intake Total 2366.66 / 2366.66 Output Total 1550 / 1550 Balance 816.66 / 816.66 Lab / Micro Data 06/25/25 07:50 Labs: Laboratory Results - last 24 hr 06/25/25 07:50: Blood Type A POSITIVE, Antibody Screen NEGATIVE 06/25/25 12:25: POC Glucose 80 06/25/25 15:07: POC Glucose 75 06/25/25 15:55: POC Glucose 75 06/26/25 05:34: POC Glucose 77 ROS Constitutional Constitutional: Reports systems reviewed and no addt'l complaints, except as documented; Denies headache(s) Eyes Eyes: Denies acute decrease in peripheral vision, blurry vision or change in vision ENT HEENT: Reports systems reviewed and no addt'l complaints, except as documented Cardiovascular Cardiovascular: Denies chest pain or dizziness Respiratory/Chest Respiratory/Chest: Denies cough, dyspnea, dyspnea on exertion, shortness of breath at rest or shortness of breath with exertion Gastrointestinal Gastrointestinal: Denies abdominal pain, diarrhea, nausea or vomiting Genitourinary Genitourinary: Denies abdominal discomfort Musculoskeletal Musculoskeletal: Denies limited range of motion Integumentary Integumentary: Reports systems reviewed and no addt'l complaints, except as documented Neurologic Neurologic: Reports systems reviewed and no addt'l complaints, except as documented Psychiatric Psychiatric: Reports systems reviewed and no addt'l complaints, except as documented Endocrine Endocrinology: Reports systems reviewed and no addt'l complaints, except as documented Hematologic/Lymphatic Hematologic/Lymphatic: Reports systems reviewed and no addt'l complaints, except as documented Allergic/Immunologic Allergic/Immunologic: Reports systems reviewed and no addt'l complaints, except as documented Physical Exam Const alert and oriented x3 General Appearance: cooperative Orientation / Consciousness: awake, oriented to person, oriented to place and oriented to time Exam Limitations: no limitations HEENT normocephalic Head and Scalp: normal to inspection, normocephalic and atraumatic Face and Sinus: normal facial exam Eyes General Eye: normal appearance of both eyes Neck full ROM Chest Chest: symmetrical chest wall rise Resp normal respiratory effort and normal air movement Auscultation: clear to auscultation bilaterally Cardio regular rate, regular rhythm, S1 normal heart sound, S2 normal heart sound, no murmurs, no rub, no gallops and no clicks GI normal to inspection, nondistended, normoactive bowel sounds and non-tender GI Narrative: Fundus firm 2 below U appearance of the vagina normal Narrative: Normal lochia rubra Bladder / Kidney Exam: no CVA tenderness Back/Spine normal ROM Extremity normal to inspection and full ROM Skin no rashes or lesions noted Neuro oriented x3, CN's II-XII intact bilaterally and moves all extremities Sensorium / Orientation: awake, alert and oriented to person Motor Exam: clonus absent Deep Tendon Reflexes: Rt Patellar (L4): 2+ and Lt Patellar (L4): 2+ Assessment & Plan (1) Second degree perineal laceration: (2) Vaginal delivery: (3) History of anxiety: PLAN: Plan 1) Routine care 2) Vitals signs stable 3) Pain controlled 4) , services PRN 5) D/C home 6) Follow up in 2 weeks and 6 weeks
--- NOTE | 2025-06-26 08:56 | PCM.DC.SUM ---
Providers Date of Admission: 06/25/25 Primary Care Physician: Dr. Luann Dunn MD Reason For Visit: VAGINAL DELIVERY Diagnosis Discharge Diagnosis (1) Vaginal delivery: Status: Acute Code(s): O80 - Encounter for full-term uncomplicated delivery (2) Second degree perineal laceration: Status: Acute Code(s): O70.1 - Second degree perineal laceration during delivery Medications at Discharge Home Medications vits,calcium no.78-iron fumarate-folic acid 29 mg-1 mg tablet 1 tab PO DAILY 07/04/19 valacyclovir 1 gram tablet 1 tab PO DAILY hx genital herpes 07/04/19 magnesium citrate 100 mg capsule 400 mg PO PRN PRN Constipation 09/18/22 acetaminophen 500 mg tablet 1,000 mg (2 x 500 mg) PO Q6H PRN PRN Pain 1-10 Or Fever #0 tabs 06/26/25 ibuprofen 600 mg tablet 600 mg PO Q6H PRN PRN Pain Score 1-10 #0 tabs 06/26/25 Hospital Course Summary of Care Provided Minutes Spent on Discharge: 15 Weight / BMI Weight Weight: 192 lb 2 oz Body Mass Index (BMI) 35.1 PRE- weight 174 lb PRE- Body Mass Index 32.0 (BMI) ABG / Lab / Microbiology Data 06/25/25 07:50 Laboratory: Laboratory Results - last 24 hr 06/25/25 07:50: Blood Type A POSITIVE, Antibody Screen NEGATIVE 06/25/25 12:25: POC Glucose 80 06/25/25 15:07: POC Glucose 75 06/25/25 15:55: POC Glucose 75 06/26/25 05:34: POC Glucose 77 D/C Instructions Discharge Activity: Return to Normal Activity, May Drive, May Shower and May Take a Tub Bath May resume sexual activity in: 6 weeks Weight Bearing Status: Full weight bearing Call your doctor if you observe: Fever of 101 or Higher, Inability to urinate, Using more than 1 pad per hour, Shortness of breath, Chest pain, Increased palpitations (irregular heartbeat), Calf discomfort and Uncontrolled pain DC O2, CPAP, BIPAP Needs Home O2 Discharge instructions: No Please Follow Up With: Pao Ahn CNM When: 2 week virtual visit and 6 week visit Meaningful Use Info Meaningful Use Meaningful Use Diagnoses (Choose all that apply): None applicable Discharge Plan Admission Admit Date/Time: 06/25/25 07:15 Primary Reason for Your Visit: Vaginal Delivery Attending Provider: Nisreen Cardozo Primary Care Provider: Luann Dunn Discharge Orders/Prescriptions Prescriptions: New acetaminophen 500 mg Tablet 1,000 mg PO Q6H PRN PRN (Reason: Pain 1-10 Or Fever) Qty: 0 0RF ibuprofen 600 mg Tablet 600 mg PO Q6H PRN PRN (Reason: Pain Score 1-10) Qty: 0 0RF Continued valacyclovir 1,000 MG tablet 1 tab PO DAILY vit,janessa [id number] 1 TABLET tablet 1 tab PO DAILY magnesium citrate 100 mg Capsule 400 mg PO PRN PRN (Reason: Constipation) Referrals / Follow Up: Luann Dunn MD [Primary Care Provider, Family Practice] Disposition Disposition (needs filled in before D/C Order can be placed): Home, Self Care
[2025-06-26] MEDS: Senna/Docusate Sodium 1 Tablet PO (15:43)
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
--- NOTE | 2025-06-30 14:15 | NURSING ---
Here for weight and bili check for on Sunday06/29/25. States she is feeling good, denies any pain. States that her bleeding is minimal and denies any headaches, visual changes, or baby blues. States that the baby is taking the bottle well every 2-3 hours, 1-2 ounces. Denies any questions or concerns at this time.
== END 2025-06-26 16:30 | disposition home or self-care (01) | DRG 807 ==
PROVIDERS: Obstetrics & Gynecology; Admitting Provider Obstetrics & Gynecology; PCP Family Medicine; Referring Provider Obstetrics & Gynecology; Visit Provider Obstetrics & Gynecology
DX: O24.429 Gestational diabetes mellitus in childbirth, unspecified control (principal); Z37.0 Single live birth; F17.290 Nicotine dependence, other tobacco product, uncomplicated; O99.214 Obesity complicating childbirth; O70.1 Second degree perineal laceration during delivery; O99.334 Smoking (tobacco) complicating childbirth; O69.81X0 Labor and delivery complicated by cord around neck, without compression, not applicable or unspecified; Z3A.39 39 weeks gestation of pregnancy; Z86.59 Personal history of other mental and behavioral disorders
CPT/HCPCS: 59025; 59050; 82962; 85025; 86780; 86850; 86900; 86901; 99221; G0378